=== PATIENT | female | born 1990 | race Caucasian/White ===

== ENCOUNTER 2023-04-22 12:59 | Outpatient (OUT) | payer BC, SELFPAY ==
--- NOTE | 2023-04-22 13:02 | US_ITS ---
The [address] [address] Patient Name: SHERITA TREVINO MRN: [id number] date: 1990 Sex: F Assigned Patient Location: [facility] Current Patient Location: [facility] Accession/Order Number: [id number] Exam Date: 04/22/2023 13:02 Report Date: 04/22/2023 16:57 At the request of: KODI FORTUNE Procedure: US pelvis w/ transvaginal EXAM: Myra ultrasound HISTORY: Pelvic pain. COMPARISON: None. TECHNIQUE: Transabdominal and transvaginal scanning was performed FINDINGS: The uterus is absent. Right ovary measures 2.8 x 2.1 x 2.9 cm. Color-flow is noted. Follicles are noted. There is 1.7 x 1.5 cm periovarian cyst noted.Left ovary measures 2.7 x 2.1 x 1.5 cm. Color-flow is noted. Follicles are noted. US/US pelvis w/ transvaginal IMPRESSION: 1. Absent uterus. 2. Normal right ovary. There is a 1.7 cm right paraovarian cyst. 3. Normal left ovary. Electronically authenticated by: NBA LEE Date: 04/22/2023 16:57
== END 2023-04-22 13:00 | disposition home or self-care (01) ==
LOC: NOMS 13:00
PROVIDERS: Visit Provider Obstetrics & Gynecology
DX: R10.2 Pelvic and perineal pain (principal); N83.291 Other ovarian cyst, right side
CPT/HCPCS: 76830; 76856

== ENCOUNTER 2023-05-07 20:39 | Outpatient (REF) | payer BC, SELFPAY ==
--- OUTSIDE RECORDS SUMMARY | 2023-05-07 20:45 | XMS_ITS | CCD ---
Author Name Unknown Address [address] [place] [address] Organization [facility] Care Team Providers Care Inspectors And Regulatory Officers Name Role Phone Sharri, Orestes F Unavailable Unavailable Sharri, Orestes F Unavailable Unavailable No, Physician Primary Care Provider Unavailabl e No, Physician Primary Care Provider Unavailabl e SHARRI, ORESTES F. S. Admitting Unavailabl e NO, PHYSICIAN Primary Care Unavailable NO, PHYSICIAN Primary Care Unavailable SHARRI, ORESTES F. S. Attending Unavailabl KIMMIE Hamlin Attending Unavailable NO, PHYSICIAN Primary Care Unavailable [place] SENIOR INTEGRATION DEVELOPER - NEGATIVE RESTORER, Katerina Gallego Primary Care Provider Charlie Cartagena Attending Unavailable Charlie Cartagena Admitting Unavailable NO FAMILY, PHYSICIAN Primary Care Unavailable Jocelin SENIOR INTEGRATION DEVELOPER - NEGATIVE RESTORER, Katerina Gallego Primary Care Provider KATERINA MONREAL Primary Care Unavailable BATSHEVA FRANCO Attending Unavailable KATERINA MONREAL Referring Unavailable JOCELIN, KATERINA M Primary Care Unavailable JOCELIN, KATERINA M Referring Unavailable JOCELIN, KATERINA M Primary Care Unavailable JOCELIN, KATERINA Gallego Referring Unavailable JOCELIN, KATERINA M Primary Care Unavailable JOCELIN, KATERINA M Referring Unavailable JOCELIN, KATERINA M Primary Care Unavailable JOCELIN, KATERINA M Referring Unavailable JOCELIN, KATERINA M Primary Care Unavailable JOCELIN, KATERINA M Referring Unavailable JOCELIN, KATEIRNA M Primary Care Unavailable KODI FORTUNE Attending Unavailable Allergies Allergy Classification Reported Allergen(s) Allergy Type Date of Onset Reaction(s) Facility (11 sources) Penicillins; Translations: [PENICILLINS] Propensity to adverse reactions to drug 01-19-2015 Rash [facility] Medications Current Medications Medication Drug Class(es) Dates Sig (Normalized) Sig (Original) acetaminophen 300 mg / codeine phosphate 30 mg oral tablet (1 source) Opioid Agonist Start: 10-10-2018 End: 10-13-2018 take 1 tablet by mouth every four hours as needed for pain acetaminophen-cod eine (TYLENOL-CODEINE #3) 300-30 mg per tablet Indications: Post-op pain Take 1 (one) tablet by mouth every 4 (four) hours as needed for pain . 18 tablet 0 10/10/2018 10/13/2018 Active acetaminophen 325 mg / oxyCODONE hydrochloride 5 mg oral tablet (3 sources) Opioid Agonist Start: 09-16-2019 End: 09-20-2019 take 1 tablet by mouth every four hours as needed oxyCODONE-acetami nophen (PERCOCET) 5-325 mg per tablet Indications: Post-op pain Take 1 (one) tablet by mouth every 4 (four) hours as needed . 20 tablet 0 09/16/2019 09/20/2019 Active Start: 09-16-2019 End: 09-16-2019 take 2 tablets by mouth every four hours as needed oxyCODONE-acetaminophen (PERCOCET) 5-325 mg per tablet 2 tablet cefdinir 300 mg oral capsule (1 source) Cephalosporin Antibacterial Start: 04-30-2022 End: 05-07-2022 take 1 capsule by mouth twice daily cefdinir (OMNICEF) 300 MG capsule Indications: Acute non-recurrent maxillary sinusitis Take 1 capsule by mouth 2 times daily for 7 days For maxillary sinusitis 14 capsule 0 04/30/2022 05/07/2022 Active 12 hr guaiFENesin 600 mg extended release oral tablet (1 source) Start: 07-28-2022 End: 08-12-2022 take 1 tablet by mouth twice daily as needed for congestion guaiFENesin (MUCINEX) 600 MG extended release tablet Take 1 tablet by mouth 2 times daily as needed for Congestion 10 tablet 0 07/28/2022 08/12/2022 Active ibuprofen 600 mg oral tablet (7 sources) Nonsteroidal Anti-inflammatory Drug Start: 07-28-2022 take 1 tablet by mouth every eight hours as needed for pain ibuprofen (ADVIL;MOTRIN) 600 MG tablet Take 1 tablet by mouth every 8 hours as needed for Pain 20 tablet 0 07/28/2022 Active Start: 09-16-2019 End: 10-16-2019 take 1 tablet by mouth every eight hours as needed ibuprofen (ADVIL,MOTRIN) 800 MG tablet Take 1 (one) tablet (800 mg total) by mouth every 8 (eight) hours as needed (pain) . 30 tablet 0 09/16/2019 10/16/2019 Active Start: 09-16-2019 End: 09-16-2019 take 1 tablet by mouth every eight hours as needed ibuprofen (ADVIL,MOTRIN) tablet 800 mg Start: 10-10-2018 End: 10-20-2018 take 1 tablet by mouth every eight hours as needed ibuprofen (ADVIL,MOTRIN) 800 MG tablet Take 1 (one) tablet (800 mg total) by mouth every 8 (eight) hours as needed for pain For 10 days. . 30 tablet 0 10/10/2018 10/20/2018 Active meclizine hydrochloride 25 mg oral tablet (5 sources) Antiemetic Start: 07-28-2022 take 1 tablet by mouth three times daily as needed for dizziness meclizine (ANTIVERT) 25 MG tablet Take 1 tablet by mouth 3 times daily as needed for Dizziness 15 tablet 0 07/28/2022 Active Start: 07-28-2022 End: 07-27-2022 meclizine (ANTIVERT) tablet 25 mg Completed/Discontinued Medications Medication Drug Class(es) Dates Sig (Normalized) Sig (Original) calcium chloride 0.0014 meq/ml / potassium chloride 0.004 meq/ml / sodium chloride 0.103 meq/ml / sodium lactate 0.028 meq/ml injectable solution (3 sources) Start: 09-15-2019 End: 09-16-2019 take 125 mL intravenous route every hour 125 mL/hr, Intravenous, Continuous, Starting Sat09/15/19 at 1230 Start: 09-15-2019 End: 09-15-2019 lactated Ringers infusion Start: 10-10-2018 End: 10-10-2018 lactated Ringers infusion Ethinyl Estradiol / norgestimate (2 sources) Progestin, Estrogen End: 09-15-2019 take 1 tablet by mouth once daily norgestimate-ethinyl estradiol (MONO-LINYAH) 0.25-35 mg-mcg per tablet Take 1 tablet by mouth daily . 0 09/15/2019 Discontinued (Patient's Request) take 1 tablet by mouth once ritika y norgestimate-ethinyl estradiol (MONO-LINYAH) 0.25-35 mg-mcg per tablet Take 1 tablet by mouth daily . 0 Active 20 ml fentaNYL 0.05 mg/ml injection (1 source) Opioid Agonist Start: 10-10-2018 End: 10-10-2018 25 mcg, Intravenous, Every 5 min PRN, Pain, Starting Sat10/10/18 at 0844, For 4 doses, PACU (only) [] Do not give more than 100 mcg while in PACU. 1 ml HYDROmorphone hydrochloride 1 mg/ml injection (2 sources) Opioid Agonist Start: 09-15-2019 End: 09-16-2019 take 1 mg intravenous route every six hours as needed HYDROmorphone (DILAUDID) injection 1 mg Start: 09-15-2019 End: 09-15-2019 0.5 mg, Intravenous, Every 5 min PRN, Pain, Starting Sat09/15/19 at 1024, For 6 doses, PACU (only) [] Give if fentanyl not effective or not ordered. [] Do not give more than 3 mg total. 4 ml labetalol hydrochloride 5 mg/ml cartridge (1 source) beta-Adrenergic Nikhil Start: 10-10-2018 End: 10-10-2018 5 mg, Intravenous, Every 5 min PRN, SBP greater than 160 or DBP greater than 90, Starting Sat10/10/18 at 0844, For 4 doses, PACU (only) [] Do not give more than 20 mg total. [] Hold for HR less than 50. 2 ml metoclopramide 5 mg/ml injection (1 source) Dopamine-2 Receptor Antagonist Start: 09-15-2019 End: 09-15-2019 metoclopramide (REGLAN) injection 10 mg Start: 09-15-2019 End: 09-15-2019 metoclopramide (REGLAN) inje ction 10 mg naloxone (NARCAN) injection 0.1 mg (2 sources) Start: 09-15-2019 End: 09-16-2019 naloxone (NARCAN) injection 0.1 mg Start: 10-10-2018 End: 10-10-2018 naloxone (NARCAN) injection 0.1 mg ondansetron (ZOFRAN-ODT) disintegrating tablet 4 mg (1 source) Start: 09-15-2019 End: 09-16-2019 take 1 tablet by mouth every six hours as needed ondansetron (ZOFRAN-ODT) disintegrating tablet 4 mg 50 ml sodium chloride 9 mg/ml injection (1 source) Start: 07-27-2022 End: 07-28-2022 0.9 % sodium chloride bolus Problems Active Problems Problem Classification Problem Date Documented Date Episodic/Chronic Abdominal pain (5 sources) Right flank pain; Translations: [Unspecified abdominal pain] Onset: 08-20-2022 Episodic Conditions associated with dizziness or vertigo (3 sources) Benign paroxysmal positional vertigo; Translations: [Benign paroxysmal vertigo, unspecified ear] Onset: 07-28-2022 Episodic Fluid and electrolyte disorders (1 source) Dehydration; Translations: [Dehydration] Episodic Genitourinary symptoms and ill-defined conditions (8 sources) Scalding pain on urination ; Translations: [Dysuria] Onset: 08-20-2022 Episodic Headache; including migraine (1 source) Headache; including migraine; Translations: [Headache, unspecified] Onset: 05-01-2022 Nutritional deficiencies (8 sources) Vitamin D deficiency; Translations: [Vitamin D deficiency, unspecified] Onset: 05-01-2022 Chronic Other lower respiratory disease (1 source) Pleuritic pain; Translations: [Pleurodynia] Episodic Other nervous system disorders (2 sources) Postoperative pain ; Translations: [Post-op pain] Episodic Other nutritional; endocrine; and metabolic disorders (6 sources) Drug-induced obesity; 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 obesity] Onset: 05-01-2022 05-01-2022 Chronic Residual codes; unclassified (2 sources) Family history of renal stone; Translations: [Family history of disorders of kidney and ureter] Episodic Residual codes; unclassified (3 sources) Family history of disorders of kidney and ureter; Translations: [Family history of disorders of kidney and ureter] Onset: 08-20-2022 Episodic Unclassified (1 source) Disorder of the skin and subcutaneous tissue, unspecified; Translations: [Disorder of the skin and subcutaneous tissue, unspecified] Onset: 04-06-2022 Past or Other Problems Problem Classification Problem Date Documented Da te Episodic/Chronic Headache; including migraine (7 sources) Frontal headache ; Translations: [Frontal headache] Onset: 05-01-2022 Episodic Other screening for suspected conditions (not mental disorders or infectious disease) (8 sources) Patient encounter status; Translations: [Encounter for screening for diseases of the blood and blood-forming organs and certain disorders involving the immune mechanism] Onset: 05-01-2022 Episodic Other upper respiratory infections (8 sources) Acute maxillary sinusitis; Translations: [Acute maxillary sinusitis, unspecified] Onset: 05-01-2022 Episodic Results Test Name Value Interpretation Reference Range Facility CT ABDOMEN PELVIS WO CONTRAS Ton 09-03-2022 CT ABDOMEN PELVIS WO CONTRAST EXAMINATION: CT ABDOMEN PELVIS WO CONTRAST, 09/03/2022 9:49 AM EDT HISTORY: 32-year-old female with microscopic hematuria. Partial hysterectomy. COMPARISON: KUB 08/20/2022 TECHNIQUE: CT scan of the abdomen and pelvis was performed without IV contrast. CT dose reduction technique was used, including Automated Exposure Control. FINDINGS: POSITIVES related to history: None. NEGATIVES related to history: No urinary tract stones or masses. COINCIDENTAL, unrelated to history: Hysterectomy. ROUTINE: Bladder contour normal. No unexpected mass. Bowel normal. Normal appendix. Normal adrenal glands, pancreas, spleen, gallbladder, liver, lung bases and bone windows IMPRESSION: Negative noncontrast CT. Interpreted by: Pawan Weinstein Jr., MD Signed by: Pawan Weinstein Jr., MD 09/03/22 Final result Normal [facility] Cult,Urineon 08-21-2022 Cult,Urine Specimen Description .CLEAN CATCH URINE Culture NO GROWTH Report Status FINAL 08/21/2022 Normal [facility] Comment on above: Performed By: #### U #### [facility] [employer] [facility] [place] [address] Junior Programmer: Wang Peralta MD [facility] [address] [place] [address] Junior Programmer: Dustin Chang MD XR ABDOMEN (KUB) (SINGLE AP VIEW)on 08-20-2022 XR ABDOMEN (KUB) (SINGLE AP VIEW) EXAM: XR ABDOMEN (KUB) (SINGLE AP VIEW) HISTORY: 1 week of right sided discomfort. Hematuria and right flank pain on exam, no fever, suspect kidney stone. Burning with urination R30.0. Dysuria R30.0. Family history of kidney stone Z84.1. Acute right flank pain R10.9. COMPARISON: None. TECHNIQUE: Supine AP view of the abdomen with 2 images. FINDINGS: There is prominent fecal material throughout the colon. No obstructive pattern or major ileus seen. Psoas margins appear intact. No urinary tract calcifications are seen. Osseous structures appear intact. IMPRESSION: Nonobstructive gas pattern. Prominent colonic fecal material is present. No urinary tract calcifications are seen. Interpreted by: Gene Mlaave DO Signed by: Gene Malave DO 08/20/22 Final result Normal [facility] Nonobstructive gas pattern. Prominent colonic fecal material is present. No urinary tract calcifications are seen. [facility] EXAM: XR ABDOMEN (KU B) (SINGLE AP VIEW) HISTORY: 1 week of right sided discomfort. Hematuria and right flank pain on exam, no fever, suspect kidney stone. Burning with urination R30.0. Dysuria R30.0. Family history of kidney stone Z84.1. Acute right flank pain R10.9. COMPARISON: None. TECHNIQUE: Supine AP view of the abdomen with 2 images. FINDINGS: There is prominent fecal material throughout the colon. No obstructive pattern or major ileus seen. Psoas margins appear intact. No urinary tract calcifications are seen. Osseous structures appear intact. [facility] Gene Malave DO - 08/20/2022 EXAM: XR ABDOMEN (KUB) (SINGLE AP VIEW) HISTORY: 1 week of right sided discomfort. Hematuria and right flank pain on exam, no fever, suspect kidney stone. Burning with urination R30.0. Dysuria R30.0. Family history of kidney stone Z84.1. Acute right flank pain R10.9. COMPARISON: None. TECHNIQUE: Supine AP view of the abdomen with 2 images. FINDINGS: There is prominent fecal material throughout the colon. No obstructive pattern or major ileus seen. Psoas margins appear intact. No urinary tract calcifications are seen. Osseous structures appear intact. IMPRESSION: Nonobstructive gas pattern. Prominent colonic fecal material is present. No urinary tract calcifications are seen. [employer] Phone: Radiology Study observation (narrative) [employer] Phone: XR ABDOMEN (KUB) (SINGLE AP VIEW)Ordered By: Gene Malave on 08-20-2022 [employer] Phone: CBC with Diffon 07-28-2022 Abs. Basophil 0.00 k/uL Normal 0.0-0.2 [facility] Comment on above: Performed By: #### C P, CDP ####[facility] [id number] [place] [address] Lab Director: Dustin Chang MD Abs.Neutrophil (Seg) 5.60 k/uL Normal 2.5-7.0 [facility] Comment on above: Performed By: #### C P, CDP ####[facility] [id number] [place] [address] Lab Director: Dustin Chang MD Auto Diff Performed YES Normal [facility] Comment on above: Performed By: #### C P, CDP ####[facility] [id number] [facility] [place] [address] Lab Director: Dustin Chang MD Basophils/100 WBC (Bld) 0 % Normal 0-2 [facility] Comment on above: Performed By: #### C P, CDP ####[facility] [id number] [facility] [place] [address] Lab Director: Dustin Chang MD Eosinophils (Bld) [#/Vol] 0.30 10*3/uL Normal 0.0-0.4 [facility] Comment on above: Performed By: #### C P, CDP ####[facility] [id number] [place] [address] Lab Director: Dustin Chang MD Eosinophils/100 WBC (Bld) 3 % Normal 0-5 [facility] Comment on above: Performed By: #### C P, CDP ####[facility] [id number] [place] [address] Lab Director: Dustin Chang MD Erythrocyte distribution width (RBC) [Ratio] 12.3 % Normal 12.1-15.2 [facility] Comment on above: Performed By: #### C P, CDP ####[facility] [id number] [place] [address] Lab Director: Dustin Chang MD Hematocrit (Bld) [Volume fraction] 37.2 % Normal 36-46 [facility] Comment on above: Performed By: #### C P, CDP ####[facility] [id number] [place] [address] Lab Director: Dustin Chang MD Hemoglobin (Bld) [Mass/Vol] 12.7 g/dL Normal 12.0-16.0 [facility] Comment on above: Performed By: #### C P, CDP ####[facility] [id number] [place] [address] Lab Director: Dustin Chang MD Lymphocytes (Bld) [#/Vol] 2.40 10*3/uL Normal 1.0-4.8 [facility] Comment on above: Performed By: #### C P, CDP ####[facility] [id number] [place] [address] Lab Director: Dustin Chang MD Lymphocytes/100 WBC (Bld) 27 % Normal 15-40 [facility] Comment on above: Performed By: #### C P, CDP ####[facility] [id number] [place], [place] [phone] Director: Dustin Chang MD MCH (RBC) [Entitic mass] 29.3 pg Normal 26-34 [facility] Comment on above: Performed By: #### C P, CDP ####[facility] [id number] [place], [place] [id number] Lab Director: Dustin Chang MD MCHC (RBC) [Mass/Vol] 34.3 g/dL Normal 31-37 [facility] Comment on above: Performed By: #### C P, CDP ####[facility] [id number] [place], [place] [phone] Director: Dustin Chang MD MCV (RBC) [Entitic vol] 85.6 fL Normal 80-100 [facility] Comment on above: Performed By: #### C P, CDP ####[facility] [id number] [place] [phone] Director: Dustin Chang MD Monocytes (Bld) [#/Vol] 0.60 10*3/uL Normal 0.0-1.0 [facility] Comment on above: Performed By: #### C P, CDP ####[facility] [id number] [place] [address] Lab Director: Dustin Chang MD Monocytes/100 WBC (Bld) 7 % Normal 4-8 [facility] Comment on above: Performed By: #### C P, CDP ####[facility] [id number] [place] [address] Lab Director: Dustin Chang MD Neutrophil (Seg) 63 % Normal 47-75 [facility] Comment on above: Performed By: #### C P, CDP ####[facility] [id number] [place] [address] Lab Director: Dustin Chang MD Platelets (Bld) [#/Vol] 307 10*3/uL Normal 140-450 [facility] Comment on above: Performed By: #### C P, CDP ####[facility] [id number] [place] [address] Lab Director: Dustin Chang MD RBC (Bld) [#/Vol] 4.35 10*6/uL Normal 4.0-5.2 [facility] Comment on above: Performed By: #### C P, CDP ####[facility] [id number] [place], [place] [phone] Director: Dustin Chang MD WBC (Bld) [#/Vol] 8.9 10*3/uL Normal 3.5-11.0 [facility] Comment on above: Performed By: #### C P, CDP ####[facility] [address] [place], [place] [phone] Director: Dustin Chang MD Comp Metabolic Profon 2022 Albumin [Mass/Vol] 3.9 g/dL Normal 3.5-5.2 [facility] Comment on above: Performed By: #### C P, CDP ####[facility] [id number] [place] [phone] Director: Dustin Chang MD Alkaline Phos 91 U/L Normal 35-104 [facility] Comment on above: Performed By: #### C P, CDP ####[facility] [id number] [place], [place] [phone] Director: Dustin Chang MD ALT [Catalytic activity/Vol] 10 U/L Normal 5-33 [facility] Comment on above: Performed By: #### C P, CDP ####[facility] [id number] [place], [place] [phone] Director: Dustin Chang MD Anion gap [Moles/Vol] 10 mmol/L Normal 9-17 [facility] Comment on above: Performed By: #### C P, CDP ####[facility] [id number] [place], [place] [phone] Director: Dustin Chang MD AST [Catalytic activity/Vol] 12 U/L Normal <32 [facility] Comment on above: Performed By: #### C P, CDP ####[facility] [id number] [place], [place] [phone] Director: Dustin Chang MD Bilirubin [Mass/Vol] 0.2 mg/dL Low 0.3-1.2 [facility] Comment on above: Performed By: #### C P, CDP ####[facility] [id number] [place] [address] Lab Director: Dustin Chang MD BUN/CRE Ratio 25 High 9-20 [facility] Comment on above: Performed By: #### C P, CDP ####[facility] [id number] [place] [address] Lab Director: Dustin Chang MD Calcium [Mass/Vol] 9.2 mg/dL Normal 8.6-10.4 [facility] Comment on above: Performed By: #### C P, CDP ####[facility] [address] [place] [address] Lab Director: Dustin Chang MD Chloride [Moles/Vol] 105 mmol/L Normal 98-107 [facility] Comment on above: Performed By: #### C P, CDP ####[facility] [address] [facility] [place] [address] Lab Director: Dustin Chang MD CO2 [Moles/Vol] 23 mmol/L Normal 20-31 [facility] Comment on above: Performed By: #### C P, CDP ####[facility] [id number] [facility] [place] [address] Lab Director: Dustin Chang MD Creatinine [Mass/Vol] 0.61 mg/dL Normal 0.50-0.90 [facility] Comment on above: Performed By: #### C P, CDP ####[facility] [address] [place] [address] Lab Director: Dustin Chang MD GFR/1.73 sq M.predicted among non-blacks MDRD (S/P/Bld) [Vol rate/Area] mL/min/{1.73_m2} Normal >60 [facility] Comment on above: Result Comment: These results are not intended for use in patients <18 years of age. eGFR results are calculated without a race factor using the 2020 CKD-EPI equation. Careful clinical correlation is recommended, particularly when comparing to results calculated using previous equations. The CKD-EPI equation is less accurate in patients with extremes of muscle mass, extra-renal metabolism of creatine, excessive creatine ingestion, or following therapy that affects renal tubular secretion. Performed By: #### C P, CDP ####[facility] [address] [facility] [place] [address] Lab Director: Dustin Chang MD Glucose [Mass/Vol] 106 mg/dL High 70-99 [facility] Comment on above: Performed By: #### C P, CDP ####[facility] [address] [place] [address] Lab Director: Dustin Chang MD Potassium [Moles/Vol] 3.7 mmol/L Normal 3.7-5.3 [facility] Comment on above: Performed By: #### C P, CDP ####[facility] [address] [facility] [place] [address] Lab Director: Dustin Chang MD Protein [Mass/Vol] 6.4 g/dL Normal 6.4-8.3 [facility] Comment on above: Performed By: #### C P, CDP ####[facility] [id number] [facility] [place] [address] Lab Director: Dustin Chang MD Sodium [Moles/Vol] 138 mmol/L Normal 135-144 [facility] Comment on above: Performed By: #### C P, CDP ####[facility] [address] [place] [address] Lab Director: Dustin Chang MD Urea nitrogen [Mass/Vol] 15 mg/dL Normal 6-20 [facility] Comment on above: Performed By: #### C P, CDP ####[facility] [id number] [place] [address] lab Director: Dustin Chang MD XR CHEST PORTABLEon 07-29-19 XR CHEST PORTABLE EXAMINATION: XR CHES T PORTABLE, , 07/27/2022 11:40 PM EDT INDICATION: Reason for exam:->CP HISTORY: Ordering Provider Reason for Exam: Technologist Note: Additional: COMPARISON: Chest x-ray dated 01/19/2015. TECHNIQUE: Chest x-ray: One view. FINDINGS: No pneumothorax, pleural effusion or focal airspace consolidation. Heart is normal in size. Bony thorax is unremarkable. IMPRESSION: No acute cardiopulmonary process. Interpreted by: Flori Penny MD Signed by: Flori Penny MD 07/28/22 Final result Normal [facility] CBC with Auto Differentialon 07-27-2022 [facility] Absolute Lymph # 2.40 [facility] Absolute Letcher # 0.60 [facility] RS [facility] Basophils (Bld) [#/Vol] 0.00 10*3/uL [facility] Basophils/100 WBC (Bld) 0 % 0 - 2 % [facility] Differential Type YES [facility] Eosinophils/100 WBC (Bld) 3 % 0 - 5 % [facility] Hematocrit (Bld) [Volume fraction] 37.2 % 36 - 46 % [facility] Hemoglobin (Bld) [Mass/Vol] 12.7 g/dL 12.0 - 16.0 g/dL [facility] Lymphocytes/100 WBC (Bld) 27 % 15 - 40 % [facility] MCH (RBC) [Entitic mass] 29.3 pg 26 - 34 pg [facility] MCHC (RBC) [Mass/Vol] 34.3 g/dL 31 - 37 g/dL [facility] MCV (RBC) [Entitic vol] 85.6 fL 80 - 100 fL [facility] Monocytes/100 WBC (Bld) 7 % 4 - 8 % [facility] Platelet distribution width (Bld) [Ratio] 12.3 % 12.1 - 15.2 % [facility] Platelets (Bld) [#/Vol] 307 10*3/uL [facility] RBC (Bld) [#/Vol] 4.35 10*6/uL 4.0 - 5.2 m/uL [facility] Segmented neutrophils/100 WBC (Bld) 63 % 47 - 75 % [facility] Segs Absolute 5.60 [facility] WBC (Bld) [#/Vol] 8.9 10*3/uL [facility] CMPon 07-27-2022 Albumin [Mass/Vol] 3.9 g/dL 3.5 - 5.2 g/dL [facility] ALP [Catalytic activity/Vol] 91 U/L 35 - 104 U/L [facility] ALT [Catalytic activity/Vol] 10 U/L 5 - 33 U/L [facility] Anion gap [Moles/Vol] 10 mmol/L 9 - 17 mmol/L [facility] AST [Catalytic activity/Vol] 12 U/L NINF - 32 U/L [facility] Bilirubin [Mass/Vol] 0.2 mg/dL Low 0.3 - 1.2 mg/dL [facility] Calcium [Mass/Vol] 9.2 mg/dL 8.6 - 10. 4 mg/dL [facility] Chloride [Moles/Vol] 105 mmol/L 98 - 107 mmol/L [facility] CO2 [Moles/Vol] 23 mmol/L 20 - 31 mmol/L [facility] Creatinine [Mass/Vol] 0.61 mg/dL 0.50 - 0.90 mg/dL [facility] GFR/1.73 sq M.predicted MDRD (S/P/Bld) [Vol rate/Area] - PINF [facility] Comment on above: These results are not intended for use in patients <18 years of age. eGFR results are calculated without a race factor using the 2020 CKD-EPI equation. Careful clinical correlation is recommended, particularly when comparing to results calculated using previous equations. The CKD-EPI equation is less accurate in patients with extremes of muscle mass, extra-renal metabolism of creatine, excessive creatine ingestion, or following therapy that affects renal tubular secretion. Glucose [Mass/Vol] 106 mg/dL High 70 - 99 mg/dL [facility] Interpretation and review of laboratory results Abnormal [facility] Potassium [Moles/Vol] 3.7 mmol/L 3.7 - 5.3 mmol/L [facility] Protein [Mass/Vol] 6.4 g/dL 6.4 - 8.3 g/dL [facility] Sodium [Moles/Vol] 138 mmol/L 135 - 144 mmol/L [facility] Urea nitrogen [Mass/Vol] 15 mg/dL 6 - 20 mg/dL [facility] Urea nitrogen/Creatinine (Bld) [Mass ratio] 25 High 9 - 20 [facility] Cytologyon 06-04-2022 Cytology (NOTE) INTERPRETATION Cervical material, (ThinPrep vial, Imaging-assisted review): Specimen Adequacy: Satisfactory for evaluation. Descriptive Diagnosis: Negative for intraepithelial lesion or malignancy. Asbestos Abatement Technician: LUIS MAYES(ASCP) Electronically Signed Out ey/06/12/2022 Source: A: Cervical material, (ThinPrep vial, Imaging-assisted review) Clinical History Hysterectomy Z01.419 Routine senior investment analyst exam without abnormal findings LMP: 12/19/2014 GYNECOLOGIC CYTOLOGY REPORT Patient Name: SHERITA TREVINO [facility] Rec: [id number] Path Number: [id number] [facility] CONSULTING PATHOLOGISTS [facility] ANATOMIC PATHOLOGY [address] [place] [phone] Normal [facility] Comment on above: Performed By: #### P PPVP #### [facility] [employer] [address] [place] [address] Junior Programmer: Wang Peralta MD C-Reactive Proteinon 023 CRP [Mass/Vol] 7.6 mg/L High 0.0-5.0 [facility] Comment on above: Performed By: #### C DP, CRP, TSHX, CP, SED, ZFAST #### [facility] [address] [place] [address] Junior Programmer: Dustin Chang MD #### LIPR, VD25 #### [facility] [address] [place] [address] Junior Programmer: Wang Peralta MD CRP High sensitivity method [Mass/Vol] 7.6 mg/L High 0.0 - 5.0 mg/L [facility] Interpretation and review of laboratory results Abnormal [facility] CBC with Auto Differentialon 05-01-2022 Absolute Eos # 0.10 [facility] Absolute Lymph # 1.80 [facility] Absolute Letcher # 0.40 [facility] Basophils (Bld) [#/Vol] 0.00 10*3/uL [facility] Basophils/100 WBC (Bld) 0 % 0 - 2 % [facility] Differential Type YES [facility] Eosinophils/100 WBC (Bld) 1 % 0 - 5 % [facility] Hematocrit (Bld) [Volume fraction] 40.2 % 36 - 46 % [facility] Hemoglobin (Bld) [Mass/Vol] 13.3 g/dL 12.0 - 16.0 g/dL [facility] Lymphocytes/100 WBC (Bld) 22 % 15 - 40 % [facility] MCH (RBC) [Entitic mass] 28.5 pg 26 - 34 pg [facility] MCHC (RBC) [Mass/Vol] 33.1 g/dL 31 - 37 g/dL [facility] MCV (RBC) [Entitic vol] 86.2 fL 80 - 100 fL [facility] Monocytes/100 WBC (Bld) 5 % 4 - 8 % [facility] Platelet distribution width (Bld) [Ratio] 13.3 % 12.1 - 15.2 % [facility] Platelets (Bld) [#/Vol] 266 10*3/uL [facility] RBC (Bld) [#/Vol] 4.66 10*6/uL 4.0 - 5.2 m/uL [facility] Segmented neutrophils/100 WBC (Bld) 72 % 47 - 75 % [facility] Segs Absolute 5.90 [facility] WBC (Bld) [#/Vol] 8.3 10*3/uL [facility] CBC with Diffon 05-01-2022 Abs. Basophil 0.00 k/uL Normal 0.0-0.2 [facility] Comment on above: Performed By: #### C DP, CRP, TSHX, CP, SED, ZFAST #### [facility] [address] [place] [address] Junior Programmer: Dustin Chang MD #### SHAHID25 #### [place] [phone] Junior Programmer: Wang Peralta MD Abs.Neutrophil (Seg) 5.90 k/uL Normal 2.5-7.0 [facility] Comment on above: Performed By: #### C DP, CRP, TSHX, CP, SED, ZFAST #### [facility] [address] [place] [address] Junior Programmer: Dustin Chang MD #### SHAHID25 #### [place] [address] Junior Programmer: Wang Peralta MD Auto Diff Performed YES Normal [facility] Comment on above: Performed By: #### C DP, CRP, TSHX, CP, SED, ZFAST #### [facility] [address] [place] [phone] Junior Programmer: Dustin Chang MD #### VAISHNAVI VD25 #### [place] [address] Junior Programmer: Wang Peralta MD Basophils/100 WBC (Bld) 0 % Normal 0-2 [facility] Comment on above: Performed By: #### C DP, CRP, TSHX, CP, SED, ZFAST #### [facility] [address] [place] [address] Junior Programmer: Dustin Chang MD #### LIPR, VD25 #### [address] [phone] Junior Programmer: Wang Peralta MD Eosinophils (Bld) [#/Vol] 0.10 10*3/uL Normal 0.0-0.4 [facility] Comment on above: Performed By: #### C DP, CRP, TSHX, CP, SED, ZFAST #### [facility] [address] [place] [address] Junior Programmer: Dustin Chang MD #### LIPMaryjane, VD25 #### [address] [phone] Junior Programmer: Wang Peralta MD Eosinophils/100 WBC (Bld) 1 % Normal 0-5 [facility] Comment on above: Performed By: #### C DP, CRP, TSHX, CP, SED, ZFAST #### [facility] [address] [place] [address] Junior Programmer: Dustin Chang MD #### LIPR, VD25 #### [address] [phone] Junior Programmer: Wang Peralta MD Erythrocyte distribution width (RBC) [Ratio] 13.3 % Normal 12.1-15.2 [facility] Comment on above: Performed By: #### C DP, CRP, TSHX, CP, SED, ZFAST #### [facility] [address] [place] [address] Junior Programmer: Dustin Chang MD #### LIPR, VD25 #### [address] [phone] Junior Programmer: Wang Peralta MD Hematocrit (Bld) [Volume fraction] 40.2 % Normal 36-46 [facility] Comment on above: Performed By: #### C DP, CRP, TSHX, CP, SED, ZFAST #### [facility] [address] [place] [address] Junior Programmer: Dustin Chang MD #### LIPR, VD25 #### [address] [address] Junior Programmer: Wang Peralta MD Hemoglobin (Bld) [Mass/Vol] 13.3 g/dL Normal 12.0-16.0 [facility] Comment on above: Performed By: #### C DP, CRP, TSHX, CP, SED, ZFAST #### [facility] [address] [place], [place] [id number] Junior Programmer: Dustin Chang MD #### VAISHNAVI, VD25 #### [address] [address] Junior Programmer: Wang Peralta MD Lymphocytes (Bld) [#/Vol] 1.80 10*3/uL Normal 1.0-4.8 [facility] Comment on above: Performed By: #### C DP, CRP, TSHX, CP, SED, ZFAST #### [facility] [address] [place] [address] Junior Programmer: Dustin Chang MD #### VAISHNAVI VD25 #### [address] [address] Junior Programmer: Wang Peralta MD Lymphocytes/100 WBC (Bld) 22 % Normal 15-40 [facility] Comment on above: Performed By: #### C DP, CRP, TSHX, CP, SED, ZFAST #### [facility] [address] [place] [address] Junior Programmer: Dustin Chang MD #### LIPR, VD25 #### [address] [phone] Junior Programmer: Wang Peralta MD MCH (RBC) [Entitic mass] 28.5 pg Normal 26-34 [facility] Comment on above: Performed By: #### C DP, CRP, TSHX, CP, SED, ZFAST #### [facility] [address] [place], [place] [id number] Junior Programmer: Dustin Chang MD #### VAISHNAVI VD25 #### [address] [phone] Junior Programmer: Wang Peralta MD MCHC (RBC) [Mass/Vol] 33.1 g/dL Normal 31-37 [facility] Comment on above: Performed By: #### C DP, CRP, TSHX, CP, SED, ZFAST #### [facility] [address] [place], [place] [phone] Junior Programmer: Dustin Chang MD #### VAISHNAVI VD25 #### [address] [phone] Junior Programmer: Wang Peralta MD MCV (RBC) [Entitic vol] 86.2 fL Normal 80-100 [facility] Comment on above: Performed By: #### C DP, CRP, TSHX, CP, SED, ZFAST #### [facility] [address] [place], [place] [id number] Junior Programmer: Dustin Chang MD #### LIPMaryjane, VD25 #### [address] [phone] Junior Programmer: Wang Peralta MD Monocytes (Bld) [#/Vol] 0.40 10*3/uL Normal 0.0-1.0 [facility] Comment on above: Performed By: #### C DP, CRP, TSHX, CP, SED, ZFAST #### [facility] [address] [place], [place] [phone] Junior Programmer: Dustin Chang MD #### LIPR, VD25 #### [place] [id number] [place], [place] [phone] Junior Programmer: Wang Peralta MD Monocytes/100 WBC (Bld) 5 % Normal 4-8 [facility] Comment on above: Performed By: #### C DP, CRP, TSHX, CP, SED, ZFAST #### [facility] [address] [place] [phone] ( Junior Programmer: Dusitn Chang MD #### LIPR, VD25 #### [address] [phone] Junior Programmer: Wang Peralta MD Neutrophil (Seg) 72 % Normal 47-75 [facility] Comment on above: Performed By: #### C DP, CRP, TSHX, CP, SED, ZFAST #### [facility] [address] [place] [phone] ( Junior Programmer: Dustin Chang MD #### LIPR, VD25 #### [address] [phone] Junior Programmer: Wang Peralta MD Platelets (Bld) [#/Vol] 266 10*3/uL Normal 140-450 [facility] Comment on above: Performed By: #### C DP, CRP, TSHX, CP, SED, ZFAST #### [facility] [address] [place] [phone] Junior Programmer: Dustin Chang MD #### LIPR, VD25 #### [place] [phone] Junior Programmer: Wang Peralta MD RBC (Bld) [#/Vol] 4.66 10*6/uL Normal 4.0-5.2 [facility] Comment on above: Performed By: #### C DP, CRP, TSHX, CP, SED, ZFAST #### [facility] [address] [place], [place] [phone] Junior Programmer: Dustin Chang MD #### LIPMaryjane, VD25 #### [address] [phone] Junior Programmer: Wang Peralta MD WBC (Bld) [#/Vol] 8.3 10*3/uL Normal 3.5-11.0 [facility] Comment on above: Performed By: #### C DP, CRP, TSHX, CP, SED, ZFAST #### [facility] [address] [place], [place] [phone] Junior Programmer: Dustin Chang MD #### VAISHNAVI, VD25 #### [address] [address] Junior Programmer: Wang Peralta MD Comp Metabolic Profon 2022 Albumin [Mass/Vol] 4.4 g/dL Normal 3.5-5.2 [facility] Comment on above: Performed By: #### C DP, CRP, TSHX, CP, SED, ZFAST #### [facility] [address] [place] [address] Junior Programmer: Dustin Chang MD #### VAISHNAVI, VD25 #### [address] [address] Junior Programmer: Wang Peralta MD Alkaline Phos 83 U/L Normal 35-104 [facility] Comment on above: Performed By: #### C DP, CRP, TSHX, CP, SED, ZFAST #### [facility] [address] [place] [address] Junior Programmer: Dustin Chang MD #### LIPR, VD25 #### [address] [address] Junior Programmer: Wang Peralta MD ALT [Catalytic activity/Vol] 9 U/L Normal 5-33 [facility] Comment on above: Performed By: #### C DP, CRP, TSHX, CP, SED, ZFAST #### [facility] [address] [place], [place] [phone] Junior Programmer: Dustin Chang MD #### LIPR, VD25 #### [address] [phone] Junior Programmer: Wang Peralta MD Anion gap [Moles/Vol] 10 mmol/L Normal 9-17 [facility] Comment on above: Performed By: #### C DP, CRP, TSHX, CP, SED, ZFAST #### [facility] [address] [place], [place] [phone] Junior Programmer: Dustin Chang MD #### LIPR, VD25 #### [address] [address] Junior Programmer: Wang Peralta MD AST [Catalytic activity/Vol] 10 U/L Normal <32 [facility] Comment on above: Performed By: #### C DP, CRP, TSHX, CP, SED, ZFAST #### [facility] [address] [place], [place] [phone] Junior Programmer: Dustin Chang MD #### LIPR, VD25 #### [address] [address] Junior Programmer: Wang Peralta MD Bilirubin [Mass/Vol] 0.5 mg/dL Normal 0.3-1.2 [facility] Comment on above: Performed By: #### C DP, CRP, TSHX, CP, SED, ZFAST #### [facility] [address] [place], [place] [phone] Junior Programmer: Dustin Chang MD #### LIPR, VD25 #### [address] [phone] Junior Programmer: Wang Peralta MD BUN/CRE Ratio 20 Normal 9-20 [facility] Comment on above: Performed By: #### C DP, CRP, TSHX, CP, SED, ZFAST #### [facility] [address] [place] [address] Junior Programmer: Dustin Chang MD #### VAISNHAVI, VD25 #### [address] [phone] Junior Programmer: Wang Peralta MD Calcium [Mass/Vol] 9.4 mg/dL Normal 8.6-10.4 [facility] Comment on above: Performed By: #### C DP, CRP, TSHX, CP, SED, ZFAST #### [facility] [address] [place], [place] [phone] Junior Programmer: Dustin Chang MD #### VAISHNAVI VD25 #### [address] [address] Junior Programmer: Wang Peralta MD Chloride [Moles/Vol] 104 mmol/L Normal 98-107 [facility] Comment on above: Performed By: #### C DP, CRP, TSHX, CP, SED, ZFAST #### [facility] [address] [place], [place] [id number] Junior Programmer: Dustin Chang MD #### VAISHNAVI VD25 #### [address] [address] Junior Programmer: Wang Peralta MD CO2 [Moles/Vol] 25 mmol/L Normal 20-31 [facility] Comment on above: Performed By: #### C DP, CRP, TSHX, CP, SED, ZFAST #### [facility] [address] [place], [place] [phone] Junior Programmer: Dustin Chang MD #### VAISHNAVI VD25 #### [address], [place] [phone] Junior Programmer: Wang Peralta MD Creatinine [Mass/Vol] 0.70 mg/dL Normal 0.50-0.90 [facility] Comment on above: Performed By: #### C DP, CRP, TSHX, CP, SED, ZFAST #### [facility] [address] [place], [place] [phone] Junior Programmer: Dustin Chang MD #### VAISHNAVI VD25 #### [place] [id number] [place], [place] [phone] Junior Programmer: Wang Peralta MD GFR/1.73 sq M.predicted among non-blacks MDRD (S/P/Bld) [Vol rate/Area] mL/min/{1.73_m2} Normal >60 [facility] Comment on above: Result Comment: These results are not intended for use in patients <18 years of age. eGFR results are calculated without a race factor using the 2020 CKD-EPI equation. Careful clinical correlation is recommended, particularly when comparing to results calculated using previous equations. The CKD-EPI equation is less accurate in patients with extremes of muscle mass, extra-renal metabolism of creatine, excessive creatine ingestion, or following therapy that affects renal tubular secretion. Performed By: #### C DP, CRP, TSHX, CP, SED, ZFAST #### [facility] [address] [place], [place] [phone] Junior Programmer: Dustin Chang MD #### VAISHNAVI VD25 #### [facility] [employer] [address] [place], [place] [phone] Junior Programmer: Wang Peralta MD Glucose [Mass/Vol] 92 mg/dL Normal 70-99 [facility] Comment on above: Performed By: #### C DP, CRP, TSHX, CP, SED, ZFAST #### [facility] [address] [place], [place] [phone] Junior Programmer: Dustin Chang MD #### SHAHID25 #### [address] [phone] Junior Programmer: Wang Peralta MD Potassium [Moles/Vol] 4.3 mmol/L Normal 3.7-5.3 [facility] Comment on above: Performed By: #### C DP, CRP, TSHX, CP, SED, ZFAST #### [facility] [address] [place], [place] [phone] Junior Programmer: Dustin Chang MD #### LIPR, VD25 #### [address] [phone] Junior Programmer: Wang Peralta MD Protein [Mass/Vol] 6.8 g/dL Normal 6.4-8.3 [facility] Comment on above: Performed By: #### C DP, CRP, TSHX, CP, SED, ZFAST #### [facility] [address] [place], [place] [phone] Junior Programmer: Dustin Chang MD #### VAISHNAVI VD25 #### [address] [phone] Junior Programmer: Wang Peralta MD Sodium [Moles/Vol] 139 mmol/L Normal 135-144 [facility] Comment on above: Performed By: #### C DP, CRP, TSHX, CP, SED, ZFAST #### [facility] [address] [place], [place] [phone] Junior Programmer: Dustin Chang MD #### LIPR, VD25 #### [address] [phone] Junior Programmer: Wang Peralta MD Urea nitrogen [Mass/Vol] 14 mg/dL Normal 6-20 [facility] Comment on above: Performed By: #### C DP, CRP, TSHX, CP, SED, ZFAST #### [facility] [address] [place] [address] Junior Programmer: Dustin Chang MD #### LIPR, VD25 #### [facility] [address] [place] [phone] Junior Programmer: Wang Peralta MD Comprehensive Metabolic Pane [facility] 05-01-2022 Albumin [Mass/Vol] 4.4 g/dL 3.5 - 5.2 g/dL [facility] ALP [Catalytic activity/Vol] 83 U/L 35 - 104 U/L [facility] ALT [Catalytic activity/Vol] 9 U/L 5 - 33 U/L [facility] Anion gap [Moles/Vol] 10 mmol/L 9 - 17 mmol/L [facility] AST [Catalytic activity/Vol] 10 U/L NINF - 32 U/L [facility] Bilirubin [Mass/Vol] 0.5 mg/dL 0.3 - 1.2 mg/dL [facility] Calcium [Mass/Vol] 9.4 mg/dL 8.6 - 10. 4 mg/dL [facility] Chloride [Moles/Vol] 104 mmol/L 98 - 107 mmol/L [facility] CO2 [Moles/Vol] 25 mmol/L 20 - 31 mmol/L [facility] Creatinine [Mass/Vol] 0.7 mg/dL 0.50 - 0.90 mg/dL [facility] GFR/1.73 sq M.predicted MDRD (S/P/Bld) [Vol rate/Area] - PINF [facility] Comment on above: These results are not intended for use in patients <18 years of age. eGFR results are calculated without a race factor using the 2020 CKD-EPI equation. Careful clinical correlation is recommended, particularly when comparing to results calculated using previous equations. The CKD-EPI equation is less accurate in patients with extremes of muscle mass, extra-renal metabolism of creatine, excessive creatine ingestion, or following therapy that affects renal tubular secretion. Glucose [Mass/Vol] 92 mg/dL 70 - 99 mg/dL [facility] Potassium [Moles/Vol] 4.3 mmol/L 3.7 - 5.3 mmol/L [facility] Protein [Mass/Vol] 6.8 g/dL 6.4 - 8.3 g/dL [facility] Sodium [Moles/Vol] 139 mmol/L 135 - 144 mmol/L [facility] Urea nitrogen [Mass/Vol] 14 mg/dL 6 - 20 mg/dL [facility] Urea nitrogen/Creatinine (Bld) [Mass ratio] 20 9 - 20 [facility] Lipid Panelon 05-01-2022 Cholesterol [Mass/Vol] 184 mg/dL NINF - 200 mg/dL [facility] Comment on above: Cholesterol Guidelines: <200 Desirable 200-240 Borderline >240 Undesirable Cholesterol in HDL [Mass/Vol] 54 mg/dL 40 - PINF mg/dL [facility] Comment on above: HDL Guidelines: <40 Undesirable 40-59 Borderline >59 Desirable Cholesterol in LDL [Mass/Vol] 111 mg/dL 0 - 130 mg/dL [facility] Comment on above: LDL Guidelines: <100 Desirable 100-129 Near to/above Desirable 130-159 Borderline >159 Undesirable Direct (measured) LDL and calculated LDL are not interchangeable tests. Cholesterol.total/C holesterol in HDL [Mass ratio] 3.4 {ratio} NINF - 5 [facility] Triglyceride [Mass/Vol] 94 mg/dL NINF - 150 mg/dL [facility] Comment on above: Triglyceride Guidelines: <150 Desirable 150-199 Borderline 200-499 High >499 Very high Based on AHA Guidelines for fasting triglyceride, December 2011. [facility] Lipid Profileon 05-01-2022 Cholesterol [Mass/Vol] 184 mg/dL Normal <200 [facility] Comment on above: Result Comment: Cholesterol Guidelines: <200 Desirable 200-240 Borderline >240 Undesirable Performed By: #### C DP, CRP, TSHX, CP, SED, ZFAST ####[facility] [address] [place] [address] Lab Director: Dustin Chang MD#### LIPR, VD25 ####[facility] [address] [place] [address] Lab Director: Wang Peralta MD Cholesterol in HDL [Mass/Vol] 54 mg/dL Normal >40 [facility] Comment on above: Result Comment: HDL Guidelines: <40 Undesirable 40-59 Borderline >59 Desirable Performed By: #### C DP, CRP, TSHX, CP, SED, ZFAST ####[facility] [address] [place], [place] [address])[phone] Director: Dustin Chang MD#### VAISHNAVI VD25 ####[facility] [address] [place] [address] Lab Director: Wang Peralta MD Cholesterol in LDL [Mass/Vol] 111 mg/dL Normal 0-130 [facility] Comment on above: Result Comment: LDL Guidelines: <100 Desirable 100-129 Near to/above Desirable 130-159 Borderline >159 Undesirable Direct (measured) LDL and calculated LDL are not interchangeable tests. Performed By: #### C DP, CRP, TSHX, CP, SED, ZFAST ####[facility] [address] [place], [place] [address])[phone] Director: Dustin Chang MD#### VAISHNAVI VD25 ####[place] [address] [place] [address] Lab Director: Wang Peralta MD Cholesterol.total/C holesterol in HDL [Mass ratio] 3.4 {ratio} Normal <5 [facility] Comment on above: Performed By: #### C DP, CRP, TSHX, CP, SED, ZFAST ####[facility] [address] [place], [place] [address])[phone] Director: Dustin Chang MD#### LIPMaryjane VD25 ####[facility] [place] [address] Lab Director: Wang Peralta MD Triglyceride [Mass/Vol] 94 mg/dL Normal <150 [facility] Comment on above: Result Comment: Triglyceride Guidelines: <150 Desirable 150-199 Borderline 200-499 High >499 Very high Based on AHA Guidelines for fasting triglyceride, December 2011. Performed By: #### C DP, CRP, TSHX, CP, SED, ZFAST ####[facility] [id number] [place] [address] Lab Director: Dustin Chang MD#### VAISHNAVI VD25 ####[facility] [address] [place], [place] [id number] Lab Director: Wang Peralta MD No Panel Informationon 05-01 [facility] Patient Fasting?on 3 Patient Fasting? YES [facility] Patient fasting?on 3 Patient fasting? YES Normal [facility] Comment on above: Performed By: #### C DP, CRP, TSHX, CP, SED, ZFAST #### [facility] [facility] [address] [place] [address] Junior Programmer: Dustin Chang MD #### [id number] #### [facility] [address] [place], [place] [id number] Junior Programmer: Wang Peralta MD Sedimentation Rateon 023 Sedimentation Rate 13 mm/Hr Normal 0-20 [facility] Comment on above: Performed By: #### C DP, CRP, TSHX, CP, SED, ZFAST #### [facility] [address] [place] [address] Junior Programmer: Dustin Chang MD #### VAISHNAVI, VD25 #### [facility] [address] [place], [place] [id number] Junior Programmer: Wang Peralta MD ESR (Bld) [Velocity] 13 mm/h [facility] TSH With Reflex Ft4on 2022 TSH Qn 3.51 m[IU]/L [facility] TSH w/reflex to FT4on 2022 Thyroid Stim. Horm. 3.51 uIU/mL Normal 0.30-5.00 [facility] Comment on above: Performed By: #### C DP, CRP, TSHX, CP, SED, ZFAST #### [facility] [address] [place] [address] Junior Programmer: Dustin Chang MD #### VAISHNAVI VD25 #### [facility] [address] [place] [address] Junior Programmer: Wang Peralta MD Vitamin D 25 Hydroxyon 05-01 25-hydroxyvitamin D3 [Mass/Vol] 17.4 ng/mL Low 29.9 - PINF ng/mL [facility] Comment on above: Reference Range: Vitamin D status Range Deficiency <20 ng/mL Mild Deficiency 20-30 ng/mL Sufficiency 30-100 ng/mL Toxicity >100 ng/mL Interpretation and review of laboratory results Abnormal [facility] Vitamin D 25 OHon 05-01-2022 Vitamin D 25 [place] 17.4 ng/mL Low >29.9 [facility] Comment on above: Result Comment: Reference Range: Vitamin D status Range Deficiency <20 ng/mL Mild Deficiency 20-30 ng/mL Sufficiency 30-100 ng/mL Toxicity >100 ng/mL Performed By: #### C DP, CRP, TSHX, CP, SED, ZFAST ####[facility] [id number] [place] [address] Lab Director: Dustin Chang MD#### VAISHNAVI VD25 ####[facility] [id number] [place], [place] [id number] Lab Director: MD Humberto Albarran 04-06-2022 L -- ---- Specimen: [id number] Received: 04/06/22 Status: SRIKANTH Santacruzpaige Num: [id number] Spec Type: Surgical Subm Dr: Charlie Cartagena DO Tissues: A Skin-Other than Cyst, tag, debridement or plastic repair (MIDLINE POSTERIOR B Skin-Other than Cyst, tag, debridement or plastic repair (LT ANTERIOR CHEST C Skin-Other than Cyst, tag, debridement or plastic repair (RT CHEEK) Procedures: Iman IQBAL/Nishant L4/3 ---- Age/ Patient Sex Location Account Attending Physician ---- Sherita Trevino [place] [id number] Charlie Cartagena DO ---- SPEC NUM: [id number] RECD: 04/06/22 STATUS: SRIKANTH SANDRA NUM: [id number] SANJAY: 04/06/[address] [facility] DR: Charlie Cartagena DO ENTERED: 04/06/22 [facility] DR: Abdirashid [facility] SPEC TYPE: Surgical DEPT: S ORDERED: HE/3, Gross/Micro L4/3 ORDERED: , Gross/Micro L4/3 Pathological Diagnosis A. Skin, midline posterior neck, shave biopsy: - Compound nevus approaching peripheral margin. B. Skin, left anterior chest wall, shave biopsy: - Compound nevus with features of seborrheic keratosis, transected. C. Skin, right cheek, excision: - Compound nevus, completely excised. Clinical Information Pigmented skin lesions right chin, left chest, posterior neck Gross Description A. Received in formalin labeled with the patient's name, number and pigmented lesion midline posterior neck is a 0.4 x 0.4 x 0.2 cm khan-pink skin which is inked and bisected. Entirely submitted in one cassette labeled A1. B. Received in formalin labeled with the patient's name, number and pigmented lesion left anterior chest wall are two khan, nodular skin fragments measuring 0.4 x 0.2 x 0.2 cm (inked black) and 0.7 x 0.5 x 0.2 cm (inked blue) the larger tissue is bisected. Entirely submitted in one cassette labeled B1. C. Received in formalin labeled with the patient's name, number and pigmented lesion right ---- Specimen: [id number] Received: 04/06/22 Status: SRIKANTH Pepe Num: [id number] Spec Type: Surgical Subm Dr: Charlie Cartagena DO Tissues: A Skin-Other than Cyst, tag, debridement or plastic repair (MIDLINE POSTERIOR B Skin-Other than Cyst, tag, debridement or plastic repair (LT ANTERIOR CHEST C Skin-Other than Cyst, tag, debridement or plastic repair (RT CHEEK) Procedures: , Gross/Micro L4/3 ---- Patient: Sherita Trevino [id number] (Continued) ---- Specimen: [id number] Received: 04/06/22 (Continued) Gross Description (Continued) Signed (signature on file) Yinka Black MD 04/09/22 1534 ---- Specimen: [id number] Received: 04/06/22 Status: SRIKANTH Pepe Num: [id number] Spec Type: Surgical Subm Dr: Charlie Cartagena DO Tissues: A Skin-Other than Cyst, tag, debridement or plastic repair (MIDLINE POSTERIOR B Skin-Other than Cyst, tag, debridement or plastic repair (LT ANTERIOR CHEST C Skin-Other than Cyst, tag, debridement or plastic repair (RT CHEEK) Procedures: YING/Sue, Iman/Nishant L4/3 ---- Patient: Sherita Trevino [id number] (Continued) ---- Specimen: [id number] Received: 04/06/22 (Continued) Gross Description (Continued) cheek is a 1.4 x 0.7 x 0.2 cm ellipse of khan-white skin with a central 0.4 x 0.4 cm khan brown macule. The specimen is inked and sectioned transversely. Entirely submitted in one cassette labeled C1. Microscopic Description A. One glass slide with H E stained material has been examined. B. One glass slide with H E stained material has been examined. C. One glass slide with H E stained material has been examined. The microscopic findings support the above pathologic diagnosis. CPT Codes 01471?3 ---- ---- Specimen: [id number] Received: 04/06/22 Status: SRIKANTH Pepe Num: [id number] Spec Type: Surgical Subm Dr: Charlie Cartagena, Tissues: A Skin- (more content not included)... Normal [facility] Ambulatory Clinical Summaryo n 12-10-2019 Ambulatory Clinical Summary {[id number] Normal [facility] Medicine Office/Clini c Noteon 12-10-2019 Family Medicine Office/Clinic Note Chief Complaint 1 mth wt check - start 3rd mth History of Present Illness Patient here for weight loss f/u Patient taking: phentermine #2 Wt. Loss: 3.3 # total 15# BMI: 32.1 Any side effects of medication? chest pain / palpitations: no dry mouth: not as much constipation: yes sometimes has been moving and stressed out so she has not been completely compliant with medication difficulty sleeping: sometimes, stress related as well Increased energy? still good Following weight loss diet? some days did not eat - diet not as good as it was in the beginning l Exercise: states walking here and there OARRS and Med Agreement up to date. had to move due to COVID - back with parents as could not afford there previous place and 2 kids 1 step son GERD - omeprazol 20 mg daily -states still not feeling well continues to have symptoms with medication get nauseated, heartburn states she is completely compliance with this medication as she carries it with her Father : severe GERD gets regular EDGs Review of Systems ROS - Provider Constitutional: no fever, no chills, no sweats, no weakness. Skin: no Jaundice, no rash, no lesions, no petechiae. ENMT: no ear pain, no sore throat, no congestion, no hoarseness. Respiratory: no shortness of breath, no cough, no orthopnea, no wheezing. Cardiovascular: no chest pain, no palpitations, no edema. Gastrointestinal: no nausea, no vomiting, no diarrhea, no GI bleeding. see hpi. Musculoskeletal: no back pain, no trauma. Neurologic: no headache, no dizziness, no numbness, no weakness. Psychiatric: no sleeping problems, no irritability, yes mood swings/depression. Heme/Lymph: no bleeding tendency, no bruising tendency, no petechiae, Additional ROS info: Except as noted in the above Review of Systems and in the History of Present Illness all other systems have been reviewed and are negative or noncontributory. Physical Exam Vitals & Measurements T: 36 ?C (Tympanic) HR: 94(Peripheral) RR: 20 BP: 118/82 HT: 165.0 cm HT: 165 cm WT: 87.5 kg WT: 87.5 kg BMI: 32.14 General: Well developed, well nourished, in no acute distress obese Head: Normocephalic/atraumat ic Eyes: Sclera / conjunctiva clear without injection Ears: Hearing grossly normal to conversational speech Nose: No deformity Mouth: No deformity Lungs: Normal respiratory effort and clear to auscultation Cardio: Regular rate and rhythm Pulses: Normal capillary refill Musculoskeletal: Gait Steady Extremity: No pedal / ankle edema Neurologic: Grossly normal Skin: No rashes, ulcerations, or suspicious lesions Mental Status: Alert and oriented x3. Normal mood and affect Assessment/Plan 1. Gastro-esophageal reflux (K21.9: Gastro-esophageal reflux disease without esophagitis) No improvement will increase omeprazole to 40 mg daily make sure to take first thing in the a.m. verbalizes understanding 2. BMI 32.0-32.9,adult (Z68.32: Body mass index (BMI) 32.0-32.9, adult) The standard range for ages 18 and older is >=18.5 and < 25 kg/m2. Your BMI today was above this range, this falls in the overweight to obese category and there are medical benefits to weight loss. We can offer counselling, referral, and/or medical support in addressing this problem. Your BMI and weight management will be followed at subsequent visits. 3. Obesity due to excess calories (E66.09: Other obesity due to excess calories) - To improve your health we recommend increasing your level of moderate exercise to at least 2.5 hrs per week. For more information, please visit the CDC Exercise and Fitness Recommendations at www.cdc.gov/physicalac tivity/basics/index.ht m Need to start paying attention to healthy diet again - will be difficult now that living with her parents Try to increase physical activity Follow-up With When Contact Information Suzanna ARENAS CNP In 1 month Additional Instructions: 1 mo wt check adipex completed Patient Education Gastroesophageal Reflux Disease, Adult, Tgrb-[id number] Problem List/Past Medical History Ongoing BMI 32.0-32.9,adult Eczema Gastro-esophageal reflux Miscarriage Obesity due to excess calories Historical Procedure/Surgical History Vaginal hysterectomy (09/15/2019), None, Tonsillectomy and adenoidectomy. Medications omeprazole 40 mg Cap-DR, 40 mg= 1 cap(s), Oral, Daily, 1 refills phentermine 37.5 mg Tab, 37.5 mg= 1 tab(s), Oral, Daily Allergies penicillins (hives) Social History Alcohol - Denies Alcohol Use, 10/25/2011 Employment/School Unemployed, 04/24/2014 Substance Abuse - Denies Substance Abuse, 10/25/2011 Tobacco - Denies Tobacco Use, 10/25/2011 Never (less than 100 in lifetime) Tobacco Use:. Never Smokeless Tobacco Use:. Cigarettes, 12/10/2019 Family History Hypertension: Father. Hypothyroidism: Mother. Immunizations Vaccine Date Status Comments influenza virus vaccine, inactivated 04/01/2012 Given New Med Order diphtheria/pertussis, acel/tetanus adult 04/01/2012 Given Other (see comment) [facility] Comment on above: Result Comment: Elec tronically Signed By: Suzanna ARENAS CNP\.br\Date and Time Signed: 12/10/19 09:28 EDT Patient Educationon 12-10-19 Patient Education Family Medicine Gastroesophageal Reflux Disease, Adult Gastroesophageal reflux disease (GERD) happens when acid from your stomach goes into your food pipe (esophagus ). The acid can cause a burning feeling in your chest. Over time, the acid can make small holes (ulcers ) in your food pipe. HOME CARE ? Ask your doctor for advice about: ? Losing weight. ? Quitting smoking. ? Alcohol use. ? Avoid foods and drinks that make your problems worse. You may want to avoid: ? Caffeine and alcohol. ? Chocolate. ? Mints. ? Garlic and onions. ? Spicy foods. ? Jarales fruits, such as oranges, jaclyn, or limes. ? Foods that contain tomato, such as sauce, chili, salsa, and pizza. ? Fried and fatty foods. ? Avoid lying down for 3 hours before you go to bed or before you take a nap. ? Eat small meals often, instead of large meals. ? Wear loose-fitting clothing. Do not wear anything tight around your waist. ? Raise (elevate ) the head of your bed 6 to 8 inches with wood blocks. Using extra pillows does not help. ? Only take medicines as told by your doctor. ? Do not take aspirin or ibuprofen. GET HELP RIGHT AWAY IF: ? You have pain in your arms, neck, jaw, teeth, or back. ? Your pain gets worse or changes. ? You feel sick to your stomach (nauseous ), throw up (vomit ), or sweat (diaphoresis ). ? You feel short of breath, or you pass out (faint ). ? Your throw up is green, yellow, black, or looks like coffee grounds or blood. ? Your poop (stool ) is red, bloody, or black. MAKE SURE YOU: ? Understand these instructions. ? Will watch your condition. ? Will get help right away if you are not doing well or get worse. Document Released: 08/20/2008 Document Revised: 2012 Document Reviewed: 09/21/2011 ExitCare? Patient Information ?2013 [employer]. Normal [facility] Ambulatory Clinical Summaryo n 11-12-2019 Ambulatory Clinical Summary {[id number] Normal [facility] Family Medicine Video Visit - Telehealthon 11-12-2019 Family Medicine Video Visit - Telehealth Chief Complaint 1 mth wt check up- start 2nd month of adipex History of Present Illness This visit was conducted via two-way, real-time interactive video communications from my office using [employer] due to the restrictions of the COVID-19 pandemic. No physical exam was conducted other than those areas of the body visible to telecommunications with the patient located at [facility] [id number], with children in attendance. If it is determined that the patient should be evaluated in the clinic, the patient will be directed to the appropriate clinic or venue. The patient or their guardian verbally consented to this visit. Video time was 15 minutes with the patient face to face greater than 50% in addition to counseling and coordination of care.j Patient here for weight loss f/u Patient taking: phentermine #1 Wt. Loss: 11# BMI: 32,6 Any side effects of medication? chest pain / palpitations: denies dry mouth: little drinking more water constipation: at first difficulty sleeping: - no problems Increased energy? yes Following weight loss diet? eating more fresh food, chicken Exercise: treadmill [place] and Med Agreement up to date. Review of Systems ROS - Provider Constitutional: no fever, no chills, no sweats, no weakness. Skin: no Jaundice, no rash, no lesions, no petechiae. Respiratory: no shortness of breath, no cough, no orthopnea, no wheezing. Cardiovascular: no chest pain, no palpitations, no edema. Gastrointestinal: no nausea, no vomiting, no diarrhea, no GI bleeding. Musculoskeletal: no back pain, no trauma. Neurologic: no headache, no dizziness, no numbness, no weakness. Psychiatric: no sleeping problems, no irritability, no mood swings/depression. Heme/Lymph: no bleeding tendency, no bruising tendency, no petechiae,. Additional ROS info: Except as noted in the above Review of Systems and in the History of Present Illness all other systems have been reviewed and are negative or noncontributory. Physical Exam Vitals & Measurements HT: 165.0 cm HT: 165 cm WT: 89.0 kg WT: 89 kg BMI: 32.69 General: Well developed, well nourished, in no acute distress Head: Normocephalic/atraumat ic Eyes: Sclera / conjunctiva clear without injection Ears: Hearing grossly normal to conversational speech Nose: No deformity Mouth: No deformity Lungs: Normal respiratory effort Musculoskeletal: Gait Steady Neurologic: Grossly normal Skin: No rashes, ulcerations, or suspicious lesions Mental Status: Alert and oriented x3. Normal mood and affect Assessment/Plan 1. Gastro-esophageal reflux (K21.9: Gastro-esophageal reflux disease without esophagitis) improved will continue with omeprazole 20 mg bid continue to work on weight loss phentermine #2 37.5 mg daily continue with daily exercise continue to work on healthy diet 2. BMI 32.0-32.9,adult (Z68.32: Body mass index (BMI) 32.0-32.9, adult) ..mabmi 3. Obesity due to excess calories (E66.09: Other obesity due to excess calories) - To improve your health we recommend increasing your level of moderate exercise to at least 2.5 hrs per week. For more information, please visit the CDC Exercise and Fitness Recommendations at www.cdc.gov/physicalac tivity/basics/index.ht m Orders: phentermine, 37.5 mg = 1 tab(s), Oral, Daily, Dx: Obesity 30 day supply BMI: 32, # 30 tab(s), Refills(s) 0, Pharmacy: [facility], 165, cm, 11/12/19 11:33:00 EDT, Height/Length Dosing, 89, kg, 11/12/19 11:33:00 EDT, Weight Dosing Follow-up With When Contact Information Suzanna ARENAS CNP In 1 month Additional Instructions: wt check Patient Education Gastroesophageal Reflux Disease, Adult, Ackj-lb-Wccr Problem List/Past Medical History Ongoing BMI 32.0-32.9,adult Eczema Gastro-esophageal reflux Miscarriage Obesity due to excess calories Historical Procedure/Surgical History Vaginal hysterectomy (09/15/2019), None, Tonsillectomy and adenoidectomy. Medications omeprazole 20 mg Cap-DR, 20 mg= 1 cap(s), Oral, Daily, 4 refills phentermine 37.5 mg Tab, 37.5 mg= 1 tab(s), Oral, Daily Allergies penicillins (hives) Social History Alcohol - Denies Alcohol Use, 10/25/2011 Employment/School Unemployed, 04/24/2014 Substance Abuse - Denies Substance Abuse, 10/25/2011 Tobacco - Denies Tobacco Use, 10/25/2011 Never (less than 100 in lifetime) Tobacco Use:. Never Smokeless Tobacco Use:. Cigarettes, 11/12/2019 Family History Hypertension: Father. Hypothyroidism: Mother. Immunizations Vaccine Date Status Comments influenza virus vaccine, inactivated 04/01/2012 Given New Med Order diphtheria/pertussis, acel/tetanus adult 04/01/2012 Given Other (see comment) Normal [facility] Comment on above: Result Comment: Elec tronically Signed By: Suzanna ARENAS CNP\.br\Date and Time Signed: 11/12/19 11:56 EDT Patient Educationon 11-12-19 Patient Education Family Medicine Gastroesophageal Reflux Disease, Adult Gastroesophageal reflux disease (GERD) happens when acid from your stomach goes into your food pipe (esophagus ). The acid can cause a burning feeling in your chest. Over time, the acid can make small holes (ulcers ) in your food pipe. HOME CARE ? Ask your doctor for advice about: ? Losing weight. ? Quitting smoking. ? Alcohol use. ? Avoid foods and drinks that make your problems worse. You may want to avoid: ? Caffeine and alcohol. ? Chocolate. ? Mints. ? Garlic and onions. ? Spicy foods. ? Jarales fruits, such as oranges, jaclyn, or limes. ? Foods that contain tomato, such as sauce, chili, salsa, and pizza. ? Fried and fatty foods. ? Avoid lying down for 3 hours before you go to bed or before you take a nap. ? Eat small meals often, instead of large meals. ? Wear loose-fitting clothing. Do not wear anything tight around your waist. ? Raise (elevate ) the head of your bed 6 to 8 inches with wood blocks. Using extra pillows does not help. ? Only take medicines as told by your doctor. ? Do not take aspirin or ibuprofen. GET HELP RIGHT AWAY IF: ? You have pain in your arms, neck, jaw, teeth, or back. ? Your pain gets worse or changes. ? You feel sick to your stomach (nauseous ), throw up (vomit ), or sweat (diaphoresis ). ? You feel short of breath, or you pass out (faint ). ? Your throw up is green, yellow, black, or looks like coffee grounds or blood. ? Your poop (stool ) is red, bloody, or black. MAKE SURE YOU: ? Understand these instructions. ? Will watch your condition. ? Will get help right away if you are not doing well or get worse. Document Released: 08/20/2008 Document Revised: 2012 Document Reviewed: 09/21/2011 ExitCare? Patient Information ?2013 [employer]. Normal [facility] Ambulatory Clinical Summaryo n 10-15-2019 Ambulatory Clinical Summary {[id number] Normal [facility] Family Medicine Office/Clini c Noteon 10-15-2019 Family Medicine Office/Clinic Note Chief Complaint discuss using adipex , frequent heartburn History of Present Illness Patient here for discuss weight loss medication States she has taken phentermine in the past Patient taking: will start phentermine BMI: 34 Any side effects of medication? chest pain / palpitations: no dry mouth:no constipation: no difficulty sleeping: no Following weight loss diet? cut out all pop - salads, chicken - watches portions Exercise: unable to lift for another two weeks due to hyst. [place] is on adipex as well they are working on wt loss together acid reflux has been dealing with feeling in her throat has had episode of vomiting after meal the last two days states she never vomits any food - states it feels like it is acid fullness feeling in her throat bread, rice and pop seems to aggravate her symptoms after eating makes it worse has awoken during the night with full feeling in her throat has not tried to treat with anything no treatment tried Review of Systems PHQ Score Initial Depression Screen Score: 0 ROS - Provider Constitutional: no fever, no chills, no sweats, no weakness. obese Skin: no Jaundice, no rash, no lesions, no petechiae.. Respiratory: no shortness of breath, no cough, no orthopnea, no wheezing. Cardiovascular: no chest pain, no palpitations, no edema. Gastrointestinal: no nausea, yes vomiting, no diarrhea, no GI bleeding. Musculoskeletal: no back pain, no trauma. Neurologic: no headache, no dizziness, no numbness, no weakness. Psychiatric: no sleeping problems, no irritability, no mood swings/depression. Heme/Lymph: no bleeding tendency, no bruising tendency, no petechiae Additional ROS info: Except as noted in the above Review of Systems and in the History of Present Illness all other systems have been reviewed and are negative or noncontributory. Physical Exam Vitals & Measurements T: 37 ?C (Tympanic) HR: 100(Peripheral) RR: 16 BP: 118/80 HT: 165 cm WT: 94.2 kg BMI: 34.6 General: Well developed, well nourished, in no acute distress obese Head: Normocephalic/atraumat ic Eyes: Sclera / conjunctiva clear without injection Ears: Hearing grossly normal to conversational speech Nose: No deformity Mouth: No deformity Lungs: Normal respiratory effort and clear to auscultation Cardio: Regular rate and rhythm Pulses: Normal capillary refill Abdomen: Soft, non-distended, non-tender with active bowel sounds Musculoskeletal: Gait Steady Extremity: No pedal / ankle edema Neurologic: Grossly normal Skin: No rashes, ulcerations, or suspicious lesions Mental Status: Alert and oriented x3. Normal mood and affect Assessment/Plan 1. Gastro-esophageal reflux (K21.9: Gastro-esophageal reflux disease without esophagitis) omeprazole 20 mg daily Counseled patient on medication administration and possible side effects will work on weight loss pdldjzwazzt90.5 mg daily Counseled patient on medication administration and possible side effects OARRS reviewed with no concerns. 2. Adult BMI 34.0-34.9 kg/sq m (Z68.34: Body mass index (BMI) 34.0-34.9, adult) The standard range for ages 18 and older is >=18.5 and < 25 kg/m2. Your BMI today was above this range, this falls in the overweight to obese category and there are medical benefits to weight loss. We can offer counselling, referral, and/or medical support in addressing this problem. Your BMI and weight management will be followed at subsequent visits. 3. Obesity due to excess calories (E66.09: Other obesity due to excess calories) - To improve your health we recommend increasing your level of moderate exercise to at least 2.5 hrs per week. For more information, please visit the CDC Exercise and Fitness Recommendations at www.cdc.gov/physicalac tivity/basics/index.ht m Orders: omeprazole, 20 mg = 1 cap(s), Oral, Daily, # 30 cap(s), Refills(s) 4, Pharmacy: [facility], 165, cm, 10/15/19 13:03:00 EDT, Height/Length Measured, 94.2, kg, 10/15/19 13:03:00 EDT, Weight Measured phentermine, 37.5 mg = 1 tab(s), Oral, Daily, Dx: Obesity 30 day supply BMI: 34, # 30 tab(s), Refills(s) 0, Pharmacy: [id number], 165, cm, 10/15/19 13:03:00 EDT, Height/Length Measured, 94.2, kg, 10/15/19 13:03:00 EDT, Weight Measured Follow-up With When Contact Information Suzanna ARENSA CNP In 1 month Additional Instructions: 1 mo wt check Patient Education Gastroesophageal Reflux Disease, Adult Problem List/Past Medical History Ongoing Adult BMI 34.0-34.9 kg/sq m Eczema Gastro-esophageal reflux Miscarriage Obesity due to excess calories Historical Procedure/Surgical History Vaginal hysterectomy (09/15/2019), None, Tonsillectomy and adenoidectomy. Medications omeprazole 20 mg Cap-DR, 20 mg= 1 cap(s), Oral, Daily, 4 refills phentermine 37.5 mg Tab, 37.5 mg= 1 tab(s), Oral, Daily Allergies penicillins (hives) Social History Alcohol - Denies Alcohol Use, 10/25/2011 Employment/School Unemployed, 04/24/2014 Substance Abuse - Denies Substance Abuse, 10/25/2011 Tobacco - Denies Tobacco Use, 10/25/2011 Never (less than 100 in lifetime) Tobacco Use:. Never Smokeless Tobacco Use:., 10/15/2019 Family History Hypertension: Father. Hypothyroidism: Mother. Immunizations Vaccine Date Status Comments influenza virus vaccine, inactivated 04/01/2012 Given New Med Order diphtheria/pertussis, acel/tetanus adult 04/01/2012 Given Other (see comment) [facility] Comment on above: Result Comment: Elec tronically Signed By: Suzanna ARENAS CNP\.br\Date and Time Signed: 10/15/19 19:31 EDT Patient Educationon 10-15-19 20 Patient Education Family Medicine Gastroesophageal Reflux Disease, Adult Gastroesophageal reflux disease (GERD) happens when acid from your stomach flows up into the esophagus. When acid comes in contact with the esophagus, the acid causes soreness (inflammation ) in the esophagus. Over time, GERD may create small holes (ulcers ) in the lining of the esophagus. CAUSES ? Increased body weight. This puts pressure on the stomach, making acid rise from the stomach into the esophagus. ? Smoking. This increases acid production in the stomach. ? Drinking alcohol. This causes decreased pressure in the lower esophageal sphincter (valve or ring of muscle between the esophagus and stomach), allowing acid from the stomach into the esophagus. ? Late evening meals and a full stomach. This increases pressure and acid production in the stomach. ? A malformed lower esophageal sphincter. Sometimes, no cause is found. SYMPTOMS ? Burning pain in the lower part of the mid-chest behind the breastbone and in the mid-stomach area. This may occur twice a week or more often. ? Trouble swallowing. ? Sore throat. ? Dry cough. ? Asthma-like symptoms including chest tightness, shortness of breath, or wheezing. DIAGNOSIS Your caregiver may be able to diagnose GERD based on your symptoms. In some cases, X-rays and other tests may be done to check for complications or to check the condition of your stomach and esophagus. TREATMENT Your caregiver may recommend ewau-whh-lufhwyd or prescription medicines to help decrease acid production. Ask your caregiver before starting or adding any new medicines. HOME CARE INSTRUCTIONS ? Change the factors that you can control. Ask your caregiver for guidance concerning weight loss, quitting smoking, and alcohol consumption. ? Avoid foods and drinks that make your symptoms worse, such as: ? Caffeine or alcoholic drinks. ? Chocolate. ? Peppermint or mint flavorings. ? Garlic and onions. ? Spicy foods. ? Jarales fruits, such as oranges, jaclyn, or limes. ? Tomato-based foods such as sauce, chili, salsa, and pizza. ? Fried and fatty foods. ? Avoid lying down for the 3 hours prior to your bedtime or prior to taking a nap. ? Eat small, frequent meals instead of large meals. ? Wear loose-fitting clothing. Do not wear anything tight around your waist that causes pressure on your stomach. ? Raise the head of your bed 6 to 8 inches with wood blocks to help you sleep. Extra pillows will not help. ? Only take [id number] or prescription medicines for pain, discomfort, or fever as directed by your caregiver. ? Do not take aspirin, ibuprofen, or other nonsteroidal anti-inflammatory drugs (NSAIDs). SEEK IMMEDIATE MEDICAL CARE IF: ? You have pain in your arms, neck, jaw, teeth, or back. ? Your pain increases or changes in intensity or duration. ? You develop nausea, vomiting, or sweating (diaphoresis ). ? You develop shortness of breath, or you faint. ? Your vomit is green, yellow, black, or looks like coffee grounds or blood. ? Your stool is red, bloody, or black. These symptoms could be signs of other problems, such as heart disease, gastric bleeding, or esophageal bleeding. MAKE SURE YOU: ? Understand these instructions. ? Will watch your condition. ? Will get help right away if you are not doing well or get worse. Document Released: 12/12/2005 Document Revised: 2012 Document Reviewed: 09/21/2011 ExitCare? Patient Information ?2013 [employer]. Normal [facility] CBCon 09-16-2019 Erythrocyte distribution width (RBC) [Entitic vol] 12.6 % 11.6 - 14.8 % [facility] Hematocrit (Bld) [Volume fraction] 33.7 % Low 36 - 46 % [facility] Hemoglobin (Bld) [Mass/Vol] 11.4 g/dL Low 12 - 16 g/dL [facility] Interpretation and review of laboratory results Abnormal [facility] MCH (RBC) [Entitic mass] 28.6 pg 26 - 34 pg [facility] MCHC (RBC) [Mass/Vol] 33.8 g/dL 31 - 37 g/dL [facility] MCV (RBC) [Entitic vol] 84.5 fL 80 - 100 fL [facility] Platelet mean volume (Bld) [Entitic vol] 9.6 fL 9.4 - 12.4 fL [facility] Platelets (Bld) [#/Vol] 260 10*3/uL [facility] RBC (Bld) [#/Vol] 3.99 10*6/uL [facility] W[facility] (Bld) [#/Vol] 11.37 10*3/uL [facility] CBCon 09-15-2019 Erythrocyte distribution width (RBC) [Entitic vol] 12.5 % 11.6 - 14.8 % [facility] Hematocrit (Bld) [Volume fraction] 41.0 % 36 - 46 % [facility] Hemoglobin (Bld) [Mass/Vol] 13.9 g/dL 12 - 16 g/dL [facility] Interpretation and review of laboratory results Normal [facility] MCH (RBC) [Entitic mass] 28.5 pg 26 - 34 pg [facility] MCHC (RBC) [Mass/Vol] 33.9 g/dL 31 - 37 g/dL [facility] MCV (RBC) [Entitic vol] 84.0 fL 80 - 100 fL [facility] Platelet mean volume (Bld) [Entitic vol] 9.5 fL 9.4 - 12.4 fL [facility] Platelets (Bld) [#/Vol] 301 10*3/uL [facility] RBC (Bld) [#/Vol] 4.88 10*6/uL [facility] WBC (Bld) [#/Vol] 8.58 10*3/uL [facility] Comprehensive Metabolic Pane humberto 09-15-2019 Albumin [Mass/Vol] 4.0 g/dL 3.2 - 5.2 g/dL [facility] ALP [Catalytic activity/Vol] 87 U/L 40 - 140 U/L [facility] ALT [Catalytic activity/Vol] 32 U/L 14 - 65 U/L [facility] Anion gap [Moles/Vol] 11 mmol/L 10 - 20 mmol/L [facility] AST [Catalytic activity/Vol] 12 U/L 0 - 45 U/L [facility] Bilirubin [Mass/Vol] 0.2 mg/dL 0 - 1.3 mg/dL [facility] Calcium [Mass/Vol] 9.3 mg/dL 8.4 - 10. 2 mg/dL [facility] Chloride [Moles/Vol] 110 mmol/L High 98 - 108 mmol/L [facility] Creatinine [Mass/Vol] 0.68 mg/dL 0.40 - 1.10 [facility] GFR/1.73 sq M predicted among non-blacks MDRD (S/P/Bld) [Vol rate/Area] The eGFR should be used for monitoring renal function only and not for medication dosing. [facility] GFR/1.73 sq M.predicted CKD-EPI (S/P/Bld) [Vol rate/Area] 119 >=60 mL/min/1.73 m2 [facility] Glucose [Mass/Vol] 91 mg/dL 65 - 99 mg/dL [facility] HCO3 [Moles/Vol] 22 mmol/L 21 - 32 mmol/L [facility] Interpretation and review of laboratory results Abnormal [facility] Potassium [Moles/Vol] 4.3 mmol/L 3.5 - 5.1 mmol/L [facility] Protein [Mass/Vol] 7.7 g/dL 6 - 8 g/dL [facility] alth Sodium [Moles/Vol] 139 mmol/L 135 - 145 mmol/L [facility] Urea nitrogen [Mass/Vol] 16 mg/dL 8 - 25 mg/dL [facility] Urea nitrogen/Creatinine [Mass ratio] 23.5 mg/mg High [facility] Type and Screenon 09-15-2019 ABO and Rh group Nom (Bld) O Negative [facility] Blood group antibody screen Ql Negative [facility] Specimen Expires 09/18/2019 23:59 EST [facility] URINALYSISon 09-15-2019 Bacteria Auto Ql (U) Rare Abnormal None Seen /hpf [facility] Bilirubin Ql (U) Negative Negative [facility] th Clarity Refractometry automated (U) Clear Clear [facility] Color (U) Yellow Colorless, Yellow [facility] Epithelial cells.squamous Auto (Urine sed) [#/Area] 5 High [facility] Glucose Auto test strip (U) [Mass/Vol] Negative Negative mg/dL [facility] Hemoglobin Auto test strip Ql (U) Negative Negative [facility] Interpretation and review of laboratory results Abnormal [facility] Ketones (U) [Mass/Vol] Negative Negative mg/dL [facility] Leukocyte esterase Auto test strip Ql (U) Moderate Abnormal Negative [facility] Mucus Auto (Urine sed) [#/Area] Rare None Seen, Rare /lpf [facility] Nitrite Auto test strip Ql (U) Negative Negative [facility] pH (U) 5.5 [pH] [facility] Protein (U) [Mass/Vol] Negative Negative mg/dL [facility] RBC Auto (Urine sed) [#/Area] 3 [facility] Specific gravity (U) [Rel density] >=1.030 High [facility] Urobilinogen (U) [Mass/Vol] <2.0 <2.0 mg/dL [facility] WBC Auto (Urine sed) [#/Area] 15 High [facility] Microscopic examination is performed on all urinalysis samples and only positive findings are reported. The test for blood on the chemical analytic portion of urinalysis may also be positive due to hemoglobinuria and myoglobinuria and if red blood cells are present they are quantified by microscopic examination. [facility] hCG, Serum, Qualitativeon Beta HCG ( test) Ql Negative Negative [facility] Interpretation and review of laboratory results Normal [facility] Negative: The result is less than or equal to 5 mIU/mL of HCG. [facility] SCAN OTHER ORDERSon 09-14-19 20 Ordered by an unspecified provider. [facility] ABORH VERIFICATIONon 019 ABO and Rh group Nom (Bld) O Negative [facility] ABO and Rh group Nom (Bld) ABO/Rh Verification [facility] Patient's ABO/Rh is verified. [facility] CBC WITH AUTO DIFFERENTIALon 10-10-2018 Basophils (Bld) [#/Vol] 0.03 10*3/uL [facility] Basophils/100 WBC (Bld) 0.4 % [facility] Eosinophils (Bld) [#/Vol] 0.20 10*3/uL [facility] Eosinophils/100 WBC (Bld) 2.6 % [facility] Erythrocyte distribution width (RBC) [Entitic vol] 12.3 % 11.6 - 14.8 % [facility] Hematocrit (Bld) [Volume fraction] 37.7 % 36 - 46 % [facility] Hemoglobin (Bld) [Mass/Vol] 12.9 g/dL 12 - 16 g/dL [facility] Immature granulocytes (Bld) [#/Vol] 0.01 10*3/uL [facility] Immature granulocytes/100 WBC (Bld) 0.10 % [facility] Comment on above: The IG parameter is the percentage of metamyelocytes, myelocytes, and promyelocytes. Lymphocytes (Bld) [#/Vol] 1.94 10*3/uL [facility] Lymphocytes/100 WBC (Bld) 25.4 % [facility] MCH (RBC) [Entitic mass] 29.1 pg 26 - 34 pg [facility] MCHC (RBC) [Mass/Vol] 34.2 g/dL 31 - 37 g/dL [facility] MCV (RBC) [Entitic vol] 84.9 fL 80 - 100 fL [facility] Monocytes (Bld) [#/Vol] 0.49 10*3/uL [facility] Monocytes/100 WBC (Bld) 6.4 % [facility] Neutrophils (Bld) [#/Vol] 4.96 10*3/uL [facility] Neutrophils/100 WBC (Bld) 65.1 % [facility] Platelet mean volume (Bld) [Entitic vol] 9.8 fL 9 - 15.5 fL [facility] Platelets (Bld) [#/Vol] 240 10*3/uL [facility] RBC (Bld) [#/Vol] 4.44 10*6/uL [facility] WBC (Bld) [#/Vol] 7.63 10*3/uL [facility] Comprehensive Metabolic Pane humberto 10-10-2018 Albumin [Mass/Vol] 3.7 g/dL 3.2 - 5.2 g/dL [facility] ALP [Catalytic activity/Vol] 57 U/L 40 - 140 U/L [facility] ALT [Catalytic activity/Vol] 27 U/L 14 - 65 U/L [facility] Anion gap [Moles/Vol] 13 mmol/L 10 - 20 mmol/L [facility] AST [Catalytic activity/Vol] 15 U/L 0 - 45 U/L [facility] Bilirubin [Mass/Vol] 0.3 mg/dL 0 - 1.3 mg/dL [facility] Calcium [Mass/Vol] 8.6 mg/dL 8.4 - 10. 2 mg/dL [facility] Chloride [Moles/Vol] 109 mmol/L High 98 - 108 mmol/L [facility] Creatinine [Mass/Vol] 0.71 mg/dL 0.4 - 1.1 mg/dL [facility] GFR/1.73 sq M predicted among non-blacks MDRD (S/P/Bld) [Vol rate/Area] The eGFR should be used for monitoring renal function only and not for medication dosing. [facility] GFR/1.73 sq M.predicted CKD-EPI (S/P/Bld) [Vol rate/Area] 117 >=60 mL/min/1.73 m2 [facility] Glucose [Mass/Vol] 90 mg/dL 65 - 99 mg/dL [facility] HCO3 [Moles/Vol] 24 mmol/L 21 - 32 mmol/L [facility] Interpretation and review of laboratory results Abnormal [facility] Potassium [Moles/Vol] 3.9 mmol/L 3.5 - 5.1 mmol/L [facility] Protein [Mass/Vol] 6.9 g/dL 6 - 8 g/dL [facility] alth Sodium [Moles/Vol] 142 mmol/L 135 - 145 mmol/L [facility] Urea nitrogen [Mass/Vol] 10 mg/dL 8 - 25 mg/dL [facility] Urea nitrogen/Creatinine [Mass ratio] 14.1 mg/mg [facility] Type and Screenon 10-10-2018 ABO and Rh group Nom (Bld) O Negative [facility] Blood group antibody screen Ql Negative [facility] Specimen Expires 10/13/2018 23:59 EST [facility] URINALYSISon 10-10-2018 Bacteria Auto Ql (U) Many Abnormal None Seen /hpf [facility] Bilirubin Ql (U) Negative Negative [facility] th Clarity Refractometry automated (U) Cloudy Abnormal Clear [facility] Color (U) Yellow Colorless, Yellow [facility] Epithelial cells.squamous Auto (Urine sed) [#/Area] 10 High [facility] Glucose Auto test strip (U) [Mass/Vol] Negative Negative mg/dL [facility] Hemoglobin Auto test strip Ql (U) Negative Negative [facility] Interpretation and review of laboratory results Abnormal [facility] Ketones (U) [Mass/Vol] Negative Negative mg/dL [facility] Leukocyte esterase Auto test strip Ql (U) Moderate Abnormal Negative [facility] Mucus Auto (Urine sed) [#/Area] Few Abnormal None Seen, Rare /lpf [facility] Nitrite Auto test strip Ql (U) Negative Negative [facility] pH (U) 5.5 [pH] [facility] Protein (U) [Mass/Vol] Negative Negative mg/dL [facility] Specific gravity (U) [Rel density] 1.025 [facility] Urobilinogen (U) [Mass/Vol] <2.0 <2.0 mg/dL [facility] WBC Auto (Urine sed) [#/Area] 8 High [facility] Microscopic examination is performed on all urinalysis samples and only positive findings are reported. The test for blood on the chemical analytic portion of urinalysis may also be positive due to hemoglobinuria and myoglobinuria and if red blood cells are present they are quantified by microscopic examination. [facility] hCG, Serum, Qualitativeon Beta HCG ( test) Ql Negative Negative [facility] Interpretation and review of laboratory results Normal [facility] Negative: The result is less than or equal to 5 mIU/mL of HCG. [facility] SCAN OTHER ORDERSon 10-10-19 19 Ordered by an unspecified provider. [facility] GYNon 01-21-2018 PARISH WORKER Name: SHERITA TREVINO LSourhi Thin Prep Cervical/Endocervical- Pap Smear Clinical History None given Specimen Adequacy Satisfactory No transformation zone component identified. Diagnosis Negative for Intraepithelial Lesion or Malignancy. Fungal organisms morphologically consistent with Krista species are present. Electronically Signed By María Elena Ruiz , Screening performed at [facility] (Case signed 01/29/2018) The Papanicolaou smear is a screening tool, and like any screen, has an inherent false negative rate. Interpretation of results should be made in the context of patient history and clinical findings. Normal [facility] Vital Signs Date Time Vital Sign Value Performing Clinician Facility 07-27-2022 23:05-0400 Body height 167.6 cm Batsheva Franco MD Work Phone: [facility] 07-27-2022 23:05-0400 Body mass index (BMI) [Ratio] 32.94 kg/m2 Batsheva Franco MD Work Phone: [facility] 07-27-2022 23:05-0400 Body temperature 98.1 [degF] Batsheva Franco MD Work Phone: [facility] 07-27-2022 23:05-0400 Body weight 92.58 kg Batsheva Franco MD Work Phone: [facility] 07-27-2022 23:05-0400 Diastolic blood pressure 53 mm[Hg] Batsheva Franco MD Work Phone: [facility] 07-27-2022 23:05-0400 Heart rate 94 /min Batsheva Franco MD Work Phone: [facility] 07-27-2022 23:05-0400 Respiratory rate 18 /min Batsheva Franco MD Work Phone: [facility] 07-27-2022 23:05-0400 SaO2% (BldA) [Mass fraction] 99 % Batsheva Franco MD Work Phone: [facility] 07-27-2022 23:05-0400 Systolic blood pressure 124 mm[Hg] Batsheva Franco MD Work Phone: [facility] 09-16-2019 04:15-0400 Body Temperature 98.91 [degF] Orestes Harrell [facility] 09-16-2019 04:15-0400 BP Diastolic 70 mm[Hg] Orestesmeet Harrell [facility] 09-16-2019 04:15-0400 BP Systolic 109 mm[Hg] Orestesmeet Harrell [facility] 09-16-2019 04:15-0400 Pulse (Heart Rate) 88 /min Orestesmeet Harrell [facility] 09-16-2019 04:15-0400 Pulse Oximetry 99 % [facility]-16[facility] 04:15-0400 Respiratory Rate 16 /min [facility] 09-15-2019 07:42-0400 BMI (Body Mass Index) 32.28 kg/m2 [facility] 09-15-2019 07:42-0400 Body [facility] 90.72 [facility] 07:42-0400 Height 167.6 cm [facility] 10-10-2018 10:00-0400 Body Temperature 98.01 [degF] [facility] 10-10-2018 10:00-0400 BP Diastolic 73 mm[Hg] [facility] 10-10-2018 10:00-0400 BP Systolic 101 mm[Hg] [facility] 10-10-2018 10:00-0400 Pulse (Heart Rate) 83 /min [facility] 10-10-2018 10:00-0400 Pulse Oximetry 99 % [facility] 10-10-2018 10:00-0400 Respiratory Rate 16 /min [facility] 10-10-2018 06:12-0400 BMI (Body Mass Index) 30.79 kg/m2 [facility] 10-10-2018 06:12-0400 Body weight 83.92 kg [facility] 10-10-2018 06:12-0400 Height 165.1 cm [facility] Encounters Encounter Date Encounter Type Care Provider Facility Start: 04-08-2023 End: 04-08-2023 ambulatory KODI FORTUNE Not Available Start: 09-03-2022 End: 09-06-2022 ambulatory KATERINA Gallego [facility] Start: 08-20-2022 End: 08-23-2022 ambulatory KATERINA M [facility] Start: 08-20-2022 End: 08-20-2022 Subsequent hospital visit by physician Katerina Monreal APRN - DAGO Work Phone: [facility] Comment on above: Burning with urinati on; Dysuria; Family history of kidney stones; Acute right flank pain Start: 08-20-2022 End: 08-22-2022 Subsequent hospital visit by physician Dona Zeng Rad [address] [facility] Radiology Comment on above: Burning with urinati on; Dysuria; Family history of kidney stones; Acute right flank pain Start: 07-28-2022 Emergency department patient visit [facility] Start: 07-27-2022 End: 07-28-2022 Emergency department patient visit Batsheva Franco MD Work Phone: [facility] ED Comment on above: Benign paroxysmal po sitional vertigo, unspecified laterality (Primary Dx); Dehydration; Pleuritic chest pain Start: 06-04-2022 End: 06-05-2022 ambulatory [facility] Start: 06-04-2022 Encounter for gynecological examination (general) (routine) without abnormal findings [facility] Start: 06-04-2022 End: 06-04-2022 Patient encounter procedure Katerina Olivares CNP Work Phone: [facility] Start: 06-04-2022 End: 06-04-2022 Subsequent hospital visit by physician Katerina Olivares CNP Work Phone: [facility] Comment on above: Well woman exam with routine gynecological exam Start: 05-01-2022 End: 05-02-2022 ambulatory [facility] Start: 05-01-2022 End: 05-01-2022 Subsequent hospital visit by physician Katerina Olivares CNP Work Phone: [facility] Comment on above: Screening, anemia, d eficiency, iron; Screening for thyroid disorder; Acute non-recurrent maxillary sinusitis; Frontal headache; Vitamin D deficiency; Screening for diabetes mellitus; Screening cholesterol level Start: 04-06-2022 End: 04-06-2022 ambulatory Charlie Cartagena Facility:[facility] Start: 11-01-2021 ambulatory [facility] Start: 12-22-2020 End: 12-27-2020 ambulatory ORESTES PETTITIMARAES [facility] [facility] Start: 09-15-2019 End: 09-16-2019 Subsequent hospital visit by physician Orestes Harrell Work Phone: [facility] Labor & Delivery Comment on above: Post-op pain (Primar y Dx) Start: 10-10-2018 End: 10-10-2018 Subsequent hospital visit by physician Orestes Harrell Work Phone: [facility] Periop Comment on above: Post-op pain (Primar y Dx) Start: 01-21-2018 Patient encounter procedure Orestes Harrell Facility:[facility] Date Procedure Procedure Detail Performing Clinician Start: 08-20-2022 Radiologic exam abdo men 1 view Katerina Monreal SENIOR INTEGRATION DEVELOPER - NEGATIVE RESTORER Work Phone: Start: 07-27-2022 Comprehensive metabo lic panel Batsheva Franco MD Work Phone: Start: 06-04-2022 Microscopic observat ion [Identifier] in Cervix by Cyto stain Batsheva Franco MD Work Phone: Start: 05-01-2022 Comprehensive metabo lic panel Katerina Monreal SENIOR INTEGRATION DEVELOPER - NEGATIVE RESTORER Work Phone: Start: 05-01-2022 Lipid panel Katerina miranda SENIOR INTEGRATION DEVELOPER - NEGATIVE RESTORER Work Phone: Start: 05-01-2022 PATIENT FASTING? Katerina Monreal SENIOR INTEGRATION DEVELOPER - NEGATIVE RESTORER Work Phone: Start: 09-16-2019 Complete blood count (hemogram) panel - Blood by Automated count Orestes Harrell Work Phone: Start: 09-15-2019 End: 09-15-2019 HYSTERECTOMY VAGINAL Orestes Diaz s Work Phone: Start: 09-15-2019 Blood type and Indir ect antibody screen panel - Blood Orestes Harrell Work Phone: Start: 09-15-2019 Choriogonadotropin.b eta subunit ( test) [Presence] in Serum or Plasma Orestes Harrell Work Phone: Start: 09-15-2019 Complete blood count (hemogram) panel - Blood by Automated count Orestes Harrell Work Phone: Start: 09-15-2019 Comprehensive metabo lic 2000 panel - Serum or Plasma Orestes Harrell Work Phone: Start: 09-15-2019 Urinalysis Orestes Harrell Work Phone: Start: 09-14-2019 SCAN OTHER ORDERS Provi radha Not In System Start: 10-10-2018 Urinalysis Orsetes Harrell Work Phone: Start: 10-10-2018 Blood group typing Orestes Harrell Work Phone: Start: 10-10-2018 Blood type and Indir ect antibody screen panel - Blood Orestes Harrell Work Phone: Start: 10-10-2018 Choriogonadotropin.b eta subunit ( test) [Presence] in Serum or Plasma Orestes Harrell Work Phone: Start: 10-10-2018 Complete blood count with white cell differential, automated Orestes Harrell Work Phone: Start: 10-10-2018 Complete blood count with white cell differential, manual Orestes Harrell Work Phone: Start: 10-10-2018 Comprehensive metabo lic 2000 panel - Serum or Plasma Orestes Harrell Work Phone: Start: 10-09-2018 SCAN OTHER ORDERS Provi radha Not In System Start: 01-21-2018 Microscopic observat ion [Identifier] in Cervix by Cyto stain Orestes Harrell Plan of Treatment Date Care Activity Detail Author Start: 06-04-2025 Screening for malign ant neoplasm of cervix [facility] [email or web address] Start: 04-30-2023 Depression Screen Depression Screen [facility] [email or web address] Start: 10-16-2022 Influenza vaccination Flu vacc ine (Season Ended) [facility] [email or web address] Start: 06-04-2022 End: 06-04-2022 Patient encounter procedure 06/04/2022 Office Visit Family Medicine Katerina Monreal, SENIOR INTEGRATION DEVELOPER - NEGATIVE RESTORER [address] [place] [address] [facility] Start: 04-01-2022 DTaP/Tdap/Td vaccine (2 - Td or Tdap) DTaP/Tdap/Td vaccine (2 - Td or Tdap) [facility] Start: 10-16-2021 Influenza vaccination Flu vaccine (# 1) [facility] Start: 05-25-2021 Screening for malign ant neoplasm of cervix [facility] Start: 01-21-2021 Screening for malign ant neoplasm of cervix Pap Smear [facility] Start: 09-08-2020 COVID-19 Vaccine (3 - Booster for Moderna series) COVID-19 Vaccine (3 - Booster for Moderna series) [facility] Start: 11-17-2019 Influenza vaccinatio n given Sequential Influenza Vaccine (#1) [facility] Start: 05-25-2012 Screening for malign ant neoplasm of cervix Pap smear [facility] Start: 05-25-2009 Hepatitis C screening Hepatitis C sc reen [facility] Start: 05-25-2006 HIV screening HIV screen [facility] Start: 05-25-1994 History and physical examination, annual for health maintenance Wellness Visit [facility] Start: 05-25-1992 Varicella vaccine (1 of 2 - 2-dose childhood series) Varicella vaccine (1 of 2 - 2-dose childhood series) [facility] Start: 1991 COVID-19 Vaccine (#1) COVID-19 Vacci ne (#1) [facility] Start: 1991 Tetanus vaccination Tetanus: Every 1 0yrs [facility] End: 08-20-2022 Culture, Urine [facility] [employer] Work Phone: Comment on above: 1 Occurrences starti ng 08/20/2022 until 08/20/2022 End: 06-04-2022 Cytopathology procedure, preparation of smear, genital source PAP Smear Lab Routine Well woman exam with routine gynecological exam 1 Occurrences starting 06/04/2022 until 06/04/2022 [facility] [employer] Phone: Comment on above: 1 Occurrences starti ng 06/04/2022 until 06/04/2022 Procedure on tissue specimen [facility] Comment on above: Once for 1 Occurrenc es starting 10/10/2018, 1 completed Release Upon Orderin g for 1 Occurrences starting 09/15/2019, 1 completed End: 07-27-2022 [facility] [employer] Work Phone: Comment on above: Once for 1 Occurrenc es starting 07/27/2022 until 07/27/2022 Payers Date Payer Category Payer Self-pay 2021 Unknown [id number] 2020 Unknown [id number] 2018 Unknown [id number] 2014 Private Health Insurance [id number] 2014 Private Health Insurance AETNA A ETNA CHOICE POS/POSII/PREMIER CARE/PREMIER CARE PLUS xxxxxxxxxx 2014-Present xxxxxxxxxx [id number] 1991 Unknown [id number] 1991 Unknown [id number] 1991 Unknown [id number] 1991 Unknown [id number] 1991 Unknown [id number] 1991 Unknown [id number] 1991 Unknown [id number] 1991 Unknown [id number] 1991 Unknown [id number] 1991 Unknown [id number] 1991 Unknown [id number] Unknown [id number] Social History Date Type Detail Facility Start: 10-10-2018 End: 08-17-2020 Tobacco smoking status NDIS Never smoker [employer] Start: 10-09-2018 End: 04-30-2022 History SDOH Alcohol Frequency 1 [facility] Sex Assigned At Not on file [facility] Start: 09-15-2019 End: 08-20-2022 Alcohol intake Lifetime non-drinker (finding) [facility] Exposure to SARS-CoV -2 (event) Not sure [facility] Start: 08-17-2020 Tobacco use and exposure Smokeless tobacco non-user [employer] Phone: Start: 04-30-2022 History SDOH Financial 5 [employer] Phone: Start: 04-30-2022 History SDOH Transpo rt Non-Med 2 [employer] Phone: Start: 1990 Sex Assigned At Female B ON [email or web address] Start: 07-28-2022 History SDOH Alcohol Std Drinks 0 [employer] Phone: Evaluation note Note Date & Type Note Facility Evaluation note Diagnosis Screening, anemia, deficiency, iron Screening for iron deficiency anemia Screening for thyroid disorder Acute non-recurrent maxillary sinusitis Frontal headache Headache Vitamin D deficiency Unspecified vitamin D deficiency Screening for diabetes mellitus Screening cholesterol level Screening for lipoid disorders documented in this encounter [employer] Phone: Evaluation note Note Date & Type Note Facility Evaluation note Diagnosis Well woman exam with routine gynecological exam Routine gynecological examination documented in this encounter [employer] Phone: Evaluation note Note Date & Type Note Facility Evaluation note Diagnosis Benign paroxysmal positional vertigo, unspecified laterality- Primary Dehydration Pleuritic chest pain Painful respiration documented in this encounter [facility] [employer] Phone: Evaluation note Note Date & Type Note Facility Evaluation note Diagnosis Burning with urination Dysuria Dysuria Family history of kidney stones Family history of other kidney diseases Acute right flank pain Abdominal pain, unspecified site documented in this encounter [facility] [employer] Phone: Evaluation note Note Date & Type Note Facility Evaluation note Diagnosis Burning with urination Dysuria Dysuria Family history of kidney stones Family history of other kidney diseases Acute right flank pain Abdominal pain, unspecified site documented in this encounter [employer] Phone: Hospital Discharge instructions Attachments Note Date & Type Note Facility Hospital Discharge instructions The following attachments cannot be sent through Care Everywhere.BPPV (Benign Paroxysmal Positional Vertigo) (Brazilian)Chest Pain: Musculoskeletal (Brazilian)documented in this encounter [facility] [employer] Phone: Summary Purpose Family History No Family History Records FoundNo Family History Records FoundNo Family History Records FoundNo Family History Records FoundNo Family History Records FoundNo Family History Records FoundNo Family History Records FoundNo Family History Records Found Advance Directives No Advanced Directives Records FoundDocuments on File Type Date Recorded Patient Pharmacy Billing Adjudicator Expl anation Advance Directives and Livin g Will 10/10/2018 5:47 AM Documents on File Type Date Recorded Patient Pharmacy Billing Adjudicator Expl anation Advance Directives and Livin g Will 09/15/2019 7:15 AM Latest Code Status on File Code Status Date Activated Date Inactivated Comments Full Code 09/15/2019 11:39 AM 09/16/2019 3:22 PM Discharge Instructions * Instructions* Radha Valdez RN - 10/10/2018 Dr. Harrell Obstetrics and Gynecology Laparoscopy: Includes outpatient tubal-ligation, Diagnostic Laparoscope, or any procedure done laparoscopically and released the same day. Remember you have had a minor procedure through a small incision! 1. Avoid heavy lifting or straining, as well as exercises or sports for one week. 2. Remove Band-aids or strips the following morning. 3. Take prescribed medicine for pain. 4. Avoid intercourse for a minimum of one week. 5. You may return to work in 2-3 days. [address] You may drive a car in 48 hours, if you are not using narcotics for pain relief. 7. You may shower or tub bathe. 8. You may feel bloated or sore, and during the first 4-8 hours you may have shoulder pain from residual gas within the abdomen. 9. Call the office the next working day to schedule an appointment as directed. Dilation and Curettage (D&C): Suction Curettage (S&C): or Endometrial Resection and Ablation: 1. Do not wear tampons. 2. Use Ibuprofen (Advil or Motrin) for cramping. 3. Take antibiotics as prescribed. 4. You may bleed or spot for 4-5 days. Call the office if bleeding is heavy. 5. Avoid intercourse for 3-4 weeks. 6. Call office the next working day to schedule an appointment as directed. Cold Cone Biopsy of the Cervix: 1. Do not wear Tampons (PADS ONLY) and DO NOT DOUCHE! 2. No stressful exercise for 2 weeks. 3. Take Ibuprofen (Advil or Motrin) for pain or cramping. 4. Avoid intercourse for 4-6 weeks. 5. Call the office the next working day to schedule appointment as directed. General: 1. Call the office if you have a temperature over 101 degrees Fahrenheit. 2. Call the office if you have severe abdominal pain or cramping. 3. Call the office if you have heavy vaginal bleeding. documented in this encounter* Attachments The following attachments cannot be sent through Care Everywhere. * Hysterectomy: Vaginal: Post-op (Brazilian) documented in this encounter Assessments Diagnosis Post-op pain- Primary Other acute postoperative pain Diagnosis Post-op pain Other acute postoperative pain History of Present Illness * Shweta Alvarez RN - 09/16/2019 8:32 AM EDT Omer documented in this encounter Additional Source Comments INFORMATION SOURCE (unrecogn ized section and content) DATE CREATED AUTHOR 02/23/2018 [facility] DATE CREATED AUTHOR AUTHOR'S ORGANIZ ATFORMERLY [facility] 01/09/2020 [facility] DATE CREATED AUTHOR AUTHOR'S ORGANIZ ATION 12/26/2020 [facility] DATE CREATED AUTHOR AUTHOR'S ORGANIZ ATION 12/31/2020 [facility] DATE CREATED AUTHOR AUTHOR'S ORGANIZ ATION 11/08/2021 [facility] DATE CREATED AUTHOR AUTHOR'S ORGANIZ ATION 07/27/2022 [facility] DATE CREATED AUTHOR AUTHOR'S ORGANIZ ATION 09/06/2022 [facility]isa [facility] DATE CREATED AUTHOR AUTHOR'S ORGANIZ ATION 04/08/2023 [facility] EPIC Reason for Visit (unrecogniz ed section and content) Status Reason Specialty Diagnoses / Procedures Referre d By Contact Referred To Contact Diagnoses RIGHT OVARIAN CYST Procedures LAPAROSCOPIC RIGHT OVARIAN CYSTECTOMY Status Reason Specialty Diagnoses / Procedures Referre d By Contact Referred To Contact Diagnoses PELVIC PAIN, ADENOMYOSIS Procedures HYSTERECTOMY VAGINAL LAPAROSCOPIC ASSISTED Reason Comments Dizziness Also having chest pa in and productive cough with mucus. Has had 4 dizzy spells in last 2 days. Orestes Harrell MD - 10/10/2018 7:23 AM Orestes Mendez MD - 10/09/2018 5:09 PM Orestes Mendez MD - 09/15/2019 8:48 AM EDT H&P Notes (unrecognized sect ion and content) INTERVAL HISTORY AND PHYSICAL Patient Name: Sherita Trevino Admit Date: [id number] MR #: [id number] : 1990 The H&P has been reviewed and the patient has been examined. I concur with the findings of the H&P. There are no significant changes. It is appropriate to proceed with the planned procedure. Orestes Harrell MD 10/10/2018 7:23 AM History and Physical Assessment/Plan: Acute abdominal pain, tender right ovarian cyst. The patient gives full informed consent for laparoscopic treatment of her ovarian cyst. Subjective: Sherita Trevino is an 28 y.o. female. HPI: She is 3 para 2-0-1-2. Her last menstrual period was 10/01. I originally saw her on October 03 of this year, in my office, in follow-up from an emergency room visit. She had been seen in the [place] emergency room on 09/26 with a normal white blood cell count and a CAT scan that was suggestive of a pelvic adnexal cyst. In my office on October 03, I confirmed that she had a 4 cm simple cyst on the right with some free fluid. Her test was still negative. I started her on control pills in an attempt to help the cyst shrink. She did well for several days but had severe right lower quadrant pain today and came to my office. The ultrasound findings were the same with a 4 cm right ovarian cyst but there was no free fluid in the pelvis. Her urine test was negative. And on exam she had remarkable tenderness when I touched her right adnexa. I gave her the option of pain medications which she declined. I therefore advised that we proceed with a laparoscopic treatment of this tender right ovarian cyst. She gave full informed consent. Past Surgical History: Procedure Laterality Date TONSILLECTOMY History reviewed. No pertinent family history. History reviewed. No pertinent past medical history. OB HISTORY: 2012 vaginal delivery at 35 weeks gestation of a 7 pound 7 ounce male. 2014 vaginal delivery at 40 weeks gestation of a 7 pound male. 2009 missed at 10 weeks gestation. Allergies: Penicillins No current facility-administered medications for this encounter. Current Outpatient Medications Medication Sig Dispense Refill norgestimate-ethinyl estradiol (MONO-LINYAH) 0.25-35 mg-mcg per tablet Take 1 tablet by mouth daily . Ht 5' 5 (1.651 m) Wt 83.9 kg (185 lb) LMP 09/25/2018 BMI 30.79 kg/m Review of Systems Positive for right pelvic pain. Negative for fever, chills, nausea, vomiting, diarrhea, headaches, visual changes, skin changes, difficulty with ambulation. Objective: Physical Exam She looks very uncomfortable. HEENT is within normal limits she wears glasses. Neck is supple without thyromegaly. Breasts are without masses or lesions. She has no lymphadenopathy. Heart shows regular rate and rhythm without murmurs. Chest is clear. Abdomen soft and nontender. Back shows no costovertebral angle tenderness. Extremities are without edema. External genitalia within normal limits vagina is well supported there is no cervical motion tenderness uterus is small and anteverted she has a very tender fullness on the right, which is consistent with her ultrasound findings of a simple right adnexal cyst. Orestes Harrell MD documented in this encounter INTERVAL HISTORY AND PHYSICAL Patient Name: Sherita Trevino Admit Date: MR #: [id number] : 1990 The H&P has been reviewed and the patient has been examined. I concur with the findings of the H&P. There are no significant changes. It is appropriate to proceed with the planned procedure. Orestes Harrell MD 09/15/2019 8:48 AM PREOPERATIVE HISTORY AND PHYSICAL Chief complaint: Pelvic pain and dysmenorrhea. Ultrasound suggestive of adenomyosis. History of present illness: The patient is a 29-year-old para 2-0-1-2 female. Her last menstrual period was August 152019. She came to my office with complaints of ongoing central pelvic pain worse before during and after her menses. She had a prior laparoscopy for an excision of a paratubal cyst. No endometriosis was seen at that time. Ultrasound was consistent with adenomyosis. And on exam she had a first to second-degree cystocele. She wishes to proceed with a hysterectomy. She understands that having hysterectomy means no more children, also no more periods. She understands the risks benefits and alternatives. And she strongly desires to proceed. She gives full informed consent. In addition to the above complaints she also has painful menses and painful sex. In the past she actually has tried multiple control pills and they did not help her with any of her problems. Past medical history: Chronic illnesses: None. Allergies: Penicillin. Surgeries: Tonsillectomy and adenoidectomy. Laparoscopic excision of a 4 cm right paratubal cyst in 2018. Medications: Multivitamins. Social history: She is . She is a homemaker. She denies use of alcohol cigarettes or illicit drugs. Family history: Positive for diabetes in her father. Positive for hypertension in her mother and father. Positive for stroke in her maternal grandfather. Positive for thyroid cancer in a maternal grandmother. Positive for breast cancer. Negative for bleeding disorders. Obstetric history: In 2012 at 35 weeks gestation she had a vaginal delivery of a 7 pound 7 ounce male. In 2014 at 40 weeks gestation she had a vaginal delivery of a 7 pound female. In 2009 she had a missed at 10 weeks gestation. Gynecologic history: Menarche at age 16. Cycles are regular. 6 days of bleeding. Heavy bleeding. Associated with severe dysmenorrhea and clotting. Negative history of pelvic inflammatory disease. Review of systems: Negative for recent known exposure to COVID-19. Negative for fever, chills, body aches, cough, sneezing, nausea, vomiting, diarrhea, constipation, vaginal discharge, dysuria, hematuria. Physical examination: She is well-appearing and in no acute distress. 5 feet 5 inches tall. 207 pounds. Pulse of 80. Respiratory rate 16. Temperature 98.9. Blood pressure 120/80. Head eyes ears nose and throat are within normal limits. Neck is supple. Chest is clear. Heart shows regular rate and rhythm. Breasts are without lesions. She has no adenopathy. She has no costovertebral angle tenderness. External genitalia within normal limits. Vagina is well supported except for a first to second-degree cystocele. She has no cervical motion tenderness. Uterus anteverted small and tender at the fundus. She has no adnexal masses or tenderness. Extremities show no edema. Assessment and plan: This is a 29-year-old female with ongoing pelvic pain dysmenorrhea and mild genital prolapse. She has had laparoscopic treatment in the past for an ovarian cyst. Which turned out to be benign. She has an ultrasound suggestive of adenomyosis. The plan is to proceed with a laparoscopically assisted vaginal hysterectomy to which the patient gives full informed consent. documented in this encounter Jackelyn Flynn RN - 09/15/2019 11:11 AM EDTJackelyn Flynn RN - 09/15/2019 10:56 AM EDT Nursing Notes (unrecognized section and content) Report given to Starla in OBGYN Dept Omer catheter patent nd draining clear yellow urine documented in this encounter Plan of Bruce - Shweta Alvarez RN - 09/16/2019 4:23 AM EDTPlan of Bruce - Fartun Banks RN - 09/16/2019 1:08 AM EDTBrief Op Note - Orestes Harrell MD - 09/15/2019 10:16 AM EDT Miscellaneous Notes (unrecog nized section and content) Pts pain well controlled and teaching about oral pain medications were reviewed. reviewed Brief Post Operative Note Patient Name: Sherita Trevino : 1990 (29 y.o.) Date of Service: 09/15/2019 CSN: [id number] Procedure(s): HYSTERECTOMY VAGINAL Pre-Operative Diagnoses: * PELVIC PAIN, ADENOMYOSIS,GENITAL PROLAPSE Post-Operative Diagnoses: * SAME Surgeon(s) and Role: * Orestes Harrell MD - Primary Anesthesiologist: Simba Reid MD Dean: Tati Castaneda RN Scrub Person: Mae Begum LPN; Jackelyn Alvarenga RN ORA FLOAT: Laverne Monroy Operative findings: FIRST DEGREE UTERINE PROLAPSE Intra and immediate post-operative complications: SAME Type of anesthesia used: General Estimated blood loss: 50 mL Estimated urine output: 100 mL Specimen(s): ID Type Source Tests Collected by Time Destination A : Excision/Resection Uterus & Cervix TISSUE EXAM Orestes Harrell MD 09/15/2019 [id number] Implant(s): * No implants in log * Drain(s): * No LDAs found * Wound(s): Wound 09/15/19 Surgical Wound Vagina (Active) Orestes Harrell MD 09/15/2019 10:16 AM documented in this encounter Care Teams (unrecognized sec tion and content) [employer]ulatory [employer] Relationship Specialty Start Date End Date Katerina Monreal, SENIOR INTEGRATION DEVELOPER [place] [address] PCP - General Certified Nurse Practitioner 04/30/22 [employer]ors [employer] Regulatory Officers Relationship Specialty Start Date End Date Katerina Monreal [facility] [place] [address] PCP - General Certified Nurse Practitioner 04/30/22 Inspectors And Regulatory Officers Relationship Specialty Start Date End Date Katerina Monreal, SENIOR INTEGRATION DEVELOPER [place] [address] PCP - General Certified Nurse Practitioner 04/30/22 Inspectors And Regulatory Officers Relationship Specialty Start Date End Date Katerina Monreal, SENIOR INTEGRATION DEVELOPER [place] [address] PCP - General Certified Nurse Practitioner 04/30/22 Inspectors And Regulatory Officers Relationship Specialty Start Date End Date Katerina Monreal SENIOR INTEGRATION DEVELOPER [place] [address] PCP - General Certified Nurse Practitioner 04/30/22 Inspectors And Regulatory Officers Relationship Specialty Start Date End Date Katerina Monreal [facility] [place] [address] PCP - General Certified Nurse Practitioner 04/30/22 Ordered Prescriptions (unrec ognized section and content) Prescription Sig Dispensed Refills Start Date End Da te meclizine (ANTIVERT) 25 MG tablet Take 1 tablet by mouth 3 times daily as needed for Dizziness 15 tablet 0 07/28/2022 ibuprofen (ADVIL;MOTRIN) 600 MG tablet Take 1 tablet by mouth every 8 hours as needed for Pain 20 tablet 0 07/28/2022 guaiFENesin (MUCINEX) 600 MG extended release tablet Take 1 tablet by mouth 2 times daily as needed for Congestion 10 tablet 0 07/28/2022 08/12/2022 Scheduled Active and Recently Administ ered Medications (unrecognized section and content) Medication Order 07/26/2022 07/27/2022 07/28/2022 0.9 % sodium chloride bolus (COMPLETED) 1,000 mL (10.8 mL/kg), IntraVENous, at 983.6 mL/hr, Administer over 61 Minutes, ONCE, On 07/27/22 at 2330, For 1 dose 2334 (New Bag - Provider: Priscilla Cole, RN) 0049 (Stopped - Provider: Shannon Tay, POWER) meclizine (ANTIVERT) tablet 25 mg (COMPLETED) 25 mg, Oral, ONCE, 1 dose, On 07/28/22 at 0000 2353 (Given - Provider: Miguel Carranza, RN) FOR RECORDS PERTAINING TO PATIENTS WHO ARE OR HAVE BEEN ENROLLED IN A CHEMICAL DEPENDENCY/SUBSTANCEABUSE PROGRAM, SOME INFORMATION MAY BE OMITTED. This clinical summary was aggregated from multiple sources. Caution should be exercised in using it in the provision of clinical care. This summary normalizes information from multiple sources, and as a consequence, information in this document may materially change the coding, format and clinical context of patient data. In addition, data may be omitted in some cases. CLINICAL DECISIONS SHOULD BE BASED ON THE PRIMARY CLINICAL RECORDS. [employer] provides no warranty or guarantee of the accuracy or completeness of information in this document.
[2023-05-11 09:08] LABS: Age Gdln ACOG Testing Note (.); HPV Aptima Negative (Negative); IGP, Aptima HPV, rfx 16/18,45 Note (.)
== END 2023-05-07 20:40 | disposition home or self-care (01) ==
LOC: LAB 20:39
PROVIDERS: Visit Provider Obstetrics & Gynecology
DX: Z01.419 Encounter for gynecological examination (general) (routine) without abnormal findings (principal)
CPT/HCPCS: 87624; G0145

== ENCOUNTER 2023-05-17 12:08 | Outpatient (OUT) | payer BC, SELFPAY ==
--- OUTSIDE RECORDS SUMMARY | 2023-05-17 12:12 | XMS_ITS | CCD ---
Author Name Unknown Address [address] [facility] [address] [place] [address] Organization [facility] Care Team Providers Care Animal Husbandry Professor Name Role Phone Sharri, Orestes F Unavailable Unavailable Sharri, Orestes F Unavailable Unavailable No, Physician Primary Care Provider Unavailabl e No, Physician Primary Care Provider Unavailabl e SHARRI, ORESTES F. S. Admitting Unavailabl e NO, PHYSICIAN Primary Care Unavailable NO, PHYSICIAN Primary Care Unavailable SHARRI, ORESTES F. S. Attending Unavailabl KIMMIE Hamlin Attending Unavailable NO, PHYSICIAN Primary Care Unavailable Seymour [employer]ORER [employer] - DIRECTOR GLOBAL, Katerina Gallego Primary Care Provider Charlie Cartagena Attending Unavailable Charlie Cartagena Admitting Unavailable NO FAMILY, PHYSICIAN Primary Care Unavailable Jocelin [employer]OR[employer] - DIRECTOR GLOBAL, Katerina Gallego Primary Care Provider KATERINA MONREAL Primary Care Unavailable BATSHEVA FRANCO Attending Unavailable JOCELIN, KATERINA M Referring Unavailable JOCELIN, [...] Unavailable JOCELIN, KATERINA M Primary Care Unavailable KODI FORTUNE Attending Unavailable KODI FORTUNE Attending Unavailable Allergies Allergy Classification Reported Allergen(s) Allergy Type Date of Onset Reaction(s) Facility (11 sources) Penicillins; Translations: [PENICILLINS] Propensity to adverse reactions to drug 01-19-2015 [facility] Medications Current Medications Medication Drug Class(es) Dates [...] Weinstein Jr., MD 09/03/22 Final result Normal [facility] Cult,Urineon 08-21-2022 Cult,Urine Specimen Description .CLEAN CATCH URINE Culture NO GROWTH Report Status FINAL 08/21/2022 Normal [facility] Comment on above: Performed By: #### U #### [id number] [place], [place] [phone] Sheet Catcher: Wang Peralta MD [facility] [address] [place] [address] Sheet Catcher: Dustin Chang MD XR ABDOMEN (KUB) (SINGLE [...] tract calcifications are seen. Interpreted by: Gene Malave DO Signed by: Gene Malave DO 08/20/22 Final result Normal [facility] Nonobstructive gas pattern. Prominent colonic fecal material is present. No urinary tract calcifications are seen. [facility] EXAM: XR ABDOMEN (KU B) (SINGLE [...] calcifications are seen. Osseous structures appear intact. [facility] Gene Malave DO - 08/20/2022 EXAM: [...] present. No urinary tract calcifications are seen. [employer] Phone: Radiology Study observation (narrative) [employer] Phone: XR ABDOMEN (KUB) (SINGLE AP VIEW)Ordered By: Gene Malave on 08-20-2022 [employer] Phone: CBC with Diffon 07-28-2022 Abs. Basophil 0.00 k/uL Normal 0.0-0.2 [facility] Comment on above: Performed By: #### C P, CDP ####[facility] [id number] [place], [place] [phone] Director: Dustin Chang MD Abs.Neutrophil (Seg) 5.60 k/uL Normal 2.5-7.0 [facility] Comment on above: Performed By: #### C P, CDP ####[facility] [address] [place] [address] Lab Director: Dustin Chang MD Auto Diff Performed YES Normal [facility] Comment on above: Performed By: #### C P, CDP ####[facility] [id number] [place] [place] [address] Lab Director: Dustin Chang MD Basophils/100 WBC (Bld) 0 % Normal 0-2 [facility] Comment on above: Performed By: #### C P, CDP ####[facility] [id number] [place] [address] Lab Director: Dustin Chang MD Eosinophils (Bld) [#/Vol] 0.30 10*3/uL Normal 0.0-0.4 [facility] Comment on above: Performed By: #### C P, CDP ####[facility] [id number] [place], [place] [phone] Director: Dustin Chang MD Eosinophils/100 WBC (Bld) 3 % Normal 0-5 [facility] Comment on above: Performed By: #### C P, CDP ####[facility] [address] [place] [address] Lab Director: Dustin Chang MD Erythrocyte distribution width (RBC) [Ratio] 12.3 % Normal 12.1-15.2 [facility] Comment on above: Performed By: #### C P, CDP ####[facility] [address] [place] [address] Lab Director: Dustin Chang MD Hematocrit (Bld) [Volume fraction] 37.2 % Normal 36-46 [facility] Comment on above: Performed By: #### C P, CDP ####[facility] [id number] [place] [address] Lab Director: Dustin Chang MD Hemoglobin (Bld) [Mass/Vol] 12.7 g/dL Normal 12.0-16.0 [facility] Comment on above: Performed By: #### C P, CDP ####[facility] [address] [place] [address] Lab Director: Dustin Chang MD Lymphocytes (Bld) [#/Vol] 2.40 10*3/uL Normal 1.0-4.8 [facility] Comment on above: Performed By: #### C P, CDP ####[facility] [id number] [place] [address] Lab Director: Dustin Chang MD Lymphocytes/100 WBC (Bld) 27 % Normal 15-40 [facility] Comment on above: Performed By: #### C P, CDP ####[facility] [address] [facility] [place] [address] Lab Director: Dustin Chang MD MCH (RBC) [Entitic mass] 29.3 pg Normal 26-34 [facility] Comment on above: Performed By: #### C P, CDP ####[facility] [address] [place] [address] Lab Director: Dustin Chang MD MCHC (RBC) [Mass/Vol] 34.3 g/dL Normal 31-37 [facility] Comment on above: Performed By: #### C P, CDP ####[facility] [address] [place] [address] Lab Director: Dustin Chang MD MCV (RBC) [Entitic vol] 85.6 fL Normal 80-100 [facility] Comment on above: Performed By: #### C P, CDP ####[facility] [address] [place], [place] [phone] Director: Dustin Chang MD Monocytes (Bld) [#/Vol] 0.60 10*3/uL Normal 0.0-1.0 [facility] Comment on above: Performed By: #### C P, CDP ####[facility] [address] [place], [place] [phone] Director: Dustin Chang MD Monocytes/100 WBC (Bld) 7 % Normal 4-8 [facility] Comment on above: Performed By: #### C P, CDP ####[facility] [address] [place], [place] [phone] Director: Dustin Chang MD Neutrophil (Seg) 63 % Normal 47-75 [facility] Comment on above: Performed By: #### C P, CDP ####[facility] [address] [place] [address] Lab Director: Dustin Chang MD Platelets (Bld) [#/Vol] 307 10*3/uL Normal 140-450 [facility] Comment on above: Performed By: #### C P, CDP ####[facility] [id number] [place] [address] Lab Director: Dustin Chang MD RBC (Bld) [#/Vol] 4.35 10*6/uL Normal 4.0-5.2 [facility] Comment on above: Performed By: #### C P, CDP ####[facility] [address] [place] [address] Lab Director: Dustin Chang MD WBC (Bld) [#/Vol] 8.9 10*3/uL Normal 3.5-11.0 [facility] Comment on above: Performed By: #### C P, CDP ####[facility] [id number] [place], [place] [phone] Director: Dustin Chang MD Comp Metabolic Profon 2022 Albumin [Mass/Vol] 3.9 g/dL Normal 3.5-5.2 [facility] Comment on above: Performed By: #### C P, CDP ####[facility] [address] [place], [place] [phone] Director: Dustin Chang MD Alkaline Phos 91 U/L Normal 35-104 [facility] Comment on above: Performed By: #### C P, CDP ####[facility] [address] [place], [place] [phone] Director: Dustin Chang MD ALT [Catalytic activity/Vol] 10 U/L Normal 5-33 [facility] Comment on above: Performed By: #### C P, CDP ####[facility] [address] [place] [address] Lab Director: Dustin Chang MD Anion gap [Moles/Vol] 10 mmol/L Normal 9-17 [facility] Comment on above: Performed By: #### C P, CDP ####[facility] [address] [place] [address] Lab Director: Dustin Chang MD AST [Catalytic activity/Vol] 12 U/L Normal <32 [facility] Comment on above: Performed By: #### C P, CDP ####[facility] [address] [place] [address] Lab Director: Dustin Chang MD Bilirubin [Mass/Vol] 0.2 mg/dL Low 0.3-1.2 [facility] Comment on above: Performed By: #### C P, CDP ####[facility] [address] [place] [address] Lab Director: Dustin Chang MD BUN/CRE Ratio 25 High 9-20 [facility] Comment on above: Performed By: #### C P, CDP ####[facility] [address] [place] [address] lab Director: Dustin Chang MD Calcium [Mass/Vol] 9.2 mg/dL Normal 8.6-10.4 [facility] Comment on above: Performed By: #### C P, CDP ####[facility] [address] [facility] [place] [address] Lab Director: Dustin Chang MD Chloride [Moles/Vol] 105 mmol/L Normal 98-107 [facility] Comment on above: Performed By: #### C P, CDP ####[facility] [address] [place] [address] Lab Director: Dustin Chang MD CO2 [Moles/Vol] 23 mmol/L Normal 20-31 [facility] Comment on above: Performed By: #### C P, CDP ####[facility] [address] [place] [address] Lab Director: Dustin Chang MD Creatinine [Mass/Vol] 0.61 mg/dL Normal 0.50-0.90 [facility] Comment on above: Performed By: #### C P, CDP ####[facility] [address] [place] [address] Lab Director: Dustin Chang MD GFR/1.73 sq M.predicted among non-blacks MDRD (S/P/Bld) [Vol rate/Area] mL/min/{1.73_m2} Normal >60 [facility] Comment on above: Result Comment: These results are not intended for use in patients <18 years of age. eGFR results are calculated without a race factor using the 1 CKD-EPI equation. Careful clinical correlation is recommended, particularly when comparing to results calculated using previous equations. The CKD-EPI equation is less accurate in patients with extremes of muscle mass, extra-renal metabolism of creatine, excessive creatine ingestion, or following therapy that affects renal tubular secretion. Performed By: #### C P, CDP ####[facility] [address] [facility] [place] [address] Lab Director: Dustin Chang MD Glucose [Mass/Vol] 106 mg/dL High 70-99 [facility] Comment on above: Performed By: #### C P, CDP ####[facility] [address] [facility], [place] [phone] Director: Dustin Chang MD Potassium [Moles/Vol] 3.7 mmol/L Normal 3.7-5.3 [facility] Comment on above: Performed By: #### C P, CDP ####[facility] [address] [facility], [place] [phone] Director: Dustin Chang MD Protein [Mass/Vol] 6.4 g/dL Normal 6.4-8.3 [facility] Comment on above: Performed By: #### C P, CDP ####[facility] [address] [facility], [place] [phone] Director: Dustin Chang MD Sodium [Moles/Vol] 138 mmol/L Normal 135-144 [facility] Comment on above: Performed By: #### C P, CDP ####[facility] [address] [facility], [place] [phone] Director: Dutsin Chang MD Urea nitrogen [Mass/Vol] 15 mg/dL Normal 6-20 [facility] Comment on above: Performed By: #### C P, CDP ####[facility] [address] [place] [id number] lab Director: Dustin Chang MD XR CHEST [...] Flori Penny MD 07/28/22 Final result Normal [facility] CBC with Auto Differentialon 07-27-2022 Absolute Eos # 0.30 [facility] Absolute Lymph # 2.40 [facility] Absolute Dawson # 0.60 [facility] Basophils (Bld) [#/Vol] 0.00 10*3/uL [facility] Basophils/100 WBC (Bld) 0 % 0 - 2 % [facility] Differential Type YES [facility] Eosinophils/100 WBC (Bld) 3 % 0 - 5 % [facility] Hematocrit (Bld) [Volume fraction] 37.2 % 36 - 46 % [facility] Hemoglobin (Bld) [Mass/Vol] 12.7 g/dL 12.0 - 16.0 g/dL [facility] Lymphocytes/100 WBC (Bld) 27 % 15 - 40 % [facility] MCH (RBC) [Entitic mass] 29.3 pg 26 - 34 pg [facility] MCHC (RBC) [Mass/Vol] 34.3 g/dL 31 - 37 g/dL [facility] MCV (RBC) [Entitic vol] 85.6 fL 80 - 100 fL [facility] Monocytes/100 WBC (Bld) 7 % 4 - 8 % [facility] Platelet distribution width (Bld) [Ratio] 12.3 % 12.1 - 15.2 % [facility] Platelets (Bld) [#/Vol] 307 10*3/uL [facility] RBC (Bld) [#/Vol] 4.35 10*6/uL 4.0 - 5.2 m/uL [facility] Segmented neutrophils/100 WBC (Bld) 63 % 47 - 75 % [facility] Segs Absolute 5.60 [facility] WBC (Bld) [#/Vol] 8.9 10*3/uL [facility] CMPon 07-27-2022 Albumin [Mass/Vol] 3.9 g/dL 3.5 - 5.2 g/dL [facility] ALP [Catalytic activity/Vol] 91 U/L 35 - 104 U/L [facility] ALT [Catalytic activity/Vol] 10 U/L 5 - 33 U/L [facility] Anion gap [Moles/Vol] 10 mmol/L 9 - 17 mmol/L [facility] AST [Catalytic activity/Vol] 12 U/L NINF - 32 U/L [facility] Bilirubin [Mass/Vol] 0.2 mg/dL Low 0.3 - 1.2 mg/dL [facility] Calcium [Mass/Vol] 9.2 mg/dL 8.6 - 10. 4 mg/dL [facility] Chloride [Moles/Vol] 105 mmol/L 98 - 107 mmol/L [facility] CO2 [Moles/Vol] 23 mmol/L 20 - 31 mmol/L [facility] Creatinine [Mass/Vol] 0.61 mg/dL 0.50 - 0.90 mg/dL [facility] GFR/1.73 sq M.predicted MDRD (S/P/Bld) [Vol rate/Area] - PINF [facility] Comment on above: These results are [...] 106 mg/dL High 70 - 99 mg/dL [facility] Interpretation and review of laboratory results Abnormal [facility] Potassium [Moles/Vol] 3.7 mmol/L 3.7 - 5.3 mmol/L [facility] Protein [Mass/Vol] 6.4 g/dL 6.4 - 8.3 g/dL [facility] Sodium [Moles/Vol] 138 mmol/L 135 - 144 mmol/L [facility] Urea nitrogen [Mass/Vol] 15 mg/dL 6 - 20 mg/dL [facility] Urea nitrogen/Creatinine (Bld) [Mass ratio] 25 High 9 - 20 [facility] Cytologyon 06-04-2022 Cytology (NOTE) INTERPRETATION Cervical material, (ThinPrep vial, Imaging-assisted review): Specimen Adequacy: Satisfactory for evaluation. Descriptive Diagnosis: Negative for intraepithelial lesion or malignancy. Biometrics Specialist: LUIS MAYES(ASCP) Electronically Signed Out ey/06/12/2022 Source: A: Cervical material, (ThinPrep vial, Imaging-assisted review) Clinical History Hysterectomy Z01.419 Routine talent acquisition consultant exam without abnormal findings LMP: 12/19/2014 GYNECOLOGIC CYTOLOGY REPORT Patient Name: SHERITA TREVINO [facility] Rec: [id number] Path Number: [id number] [facility] ANATOMIC PATHOLOGY [address] [place] [phone] Normal [facility] Comment on above: Performed By: #### P PPVP #### [facility] [employer] [address] [place] [address] Sheet Catcher: Wang Peralta MD C-Reactive Proteinon 023 CRP [Mass/Vol] 7.6 mg/L High 0.0-5.0 [facility] Comment on above: Performed By: #### C DP, CRP, TSHX, CP, SED, ZFAST #### [facility] [address] [place] [address] Sheet Catcher: Dustin Chang MD #### LIPR, VD25 #### [facility] [address] [place] [address] Sheet Catcher: Wang Peralta MD CRP High sensitivity method [Mass/Vol] 7.6 mg/L High 0.0 - 5.0 mg/L [facility] Interpretation and review of laboratory results Abnormal [facility] CBC with Auto Differentialon 05-01-2022 Absolute Eos # 0.10 [facility] Absolute Lymph # 1.80 [facility] Absolute Dawson # 0.40 [facility] Basophils (Bld) [#/Vol] 0.00 10*3/uL [facility] Basophils/100 WBC (Bld) 0 % 0 - 2 % [facility] Differential Type YES [facility] Eosinophils/100 WBC (Bld) 1 % 0 - 5 % [facility] Hematocrit (Bld) [Volume fraction] 40.2 % 36 - 46 % [facility] Hemoglobin (Bld) [Mass/Vol] 13.3 g/dL 12.0 - 16.0 g/dL [facility] Lymphocytes/100 WBC (Bld) 22 % 15 - 40 % [facility] MCH (RBC) [Entitic mass] 28.5 pg 26 - 34 pg [facility] MCHC (RBC) [Mass/Vol] 33.1 g/dL 31 - 37 g/dL [facility] MCV (RBC) [Entitic vol] 86.2 fL 80 - 100 fL [facility] Monocytes/100 WBC (Bld) 5 % 4 - 8 % [facility] Platelet distribution width (Bld) [Ratio] 13.3 % 12.1 - 15.2 % [facility] Platelets (Bld) [#/Vol] 266 10*3/uL [facility] RBC (Bld) [#/Vol] 4.66 10*6/uL 4.0 - 5.2 m/uL [facility] Segmented neutrophils/100 WBC (Bld) 72 % 47 - 75 % [facility] Segs Absolute 5.90 [facility] WBC (Bld) [#/Vol] 8.3 10*3/uL [facility] CBC with Diffon 05-01-2022 Abs. Basophil 0.00 k/uL Normal 0.0-0.2 [facility] Comment on above: Performed By: #### C DP, CRP, TSHX, CP, SED, ZFAST #### [facility] [address] [place] [address] Sheet Catcher: Dustin Chang MD #### SHAHID25 #### [address] [id number] Sheet Catcher: Wang Peralta MD Abs.Neutrophil (Seg) 5.90 k/uL Normal 2.5-7.0 [facility] Comment on above: Performed By: #### C DP, CRP, TSHX, CP, SED, ZFAST #### [facility] [address] [place], [place] [phone] Sheet Catcher: Dustin Chang MD #### SHAHID25 #### [place] [id number] Sheet Catcher: Wang Peralta MD Auto Diff Performed YES Normal [facility] Comment on above: Performed By: #### C DP, CRP, TSHX, CP, SED, ZFAST #### [facility] [address] [place], [place] [phone] Sheet Catcher: Dustin Chang MD #### SHAHID25 #### [address] [phone] Sheet Catcher: Wang Peralta MD Basophils/100 WBC (Bld) 0 % Normal 0-2 [facility] Comment on above: Performed By: #### C DP, CRP, TSHX, CP, SED, ZFAST #### [facility] [address] [place] [address] Sheet Catcher: Dustin Chang MD #### LIPR, VD25 #### [address] [id number] Sheet Catcher: Wang Peralta MD Eosinophils (Bld) [#/Vol] 0.10 10*3/uL Normal 0.0-0.4 [facility] Comment on above: Performed By: #### C DP, CRP, TSHX, CP, SED, ZFAST #### [facility] [address] [place] [address] Sheet Catcher: Dustin Chang MD #### LIPR, VD25 #### [address] [id number] Sheet Catcher: Wang Peralta MD Eosinophils/100 WBC (Bld) 1 % Normal 0-5 [facility] Comment on above: Performed By: #### C DP, CRP, TSHX, CP, SED, ZFAST #### [facility] [address] [place] [address] Sheet Catcher: Dustin Chang MD #### LIPR, VD25 #### [address] [id number] Sheet Catcher: Wang Peralta MD Erythrocyte distribution width (RBC) [Ratio] 13.3 % Normal 12.1-15.2 [facility] Comment on above: Performed By: #### C DP, CRP, TSHX, CP, SED, ZFAST #### [facility] [address] [place] [address] Sheet Catcher: Dustin Chang MD #### LIPR, VD25 #### [address] [id number] Sheet Catcher: Wang Peralta MD Hematocrit (Bld) [Volume fraction] 40.2 % Normal 36-46 [facility] Comment on above: Performed By: #### C DP, CRP, TSHX, CP, SED, ZFAST #### [facility] [address] [place] [address] Sheet Catcher: Dustin Chang MD #### LIPR, VD25 #### [address] [id number] Sheet Catcher: Wang Peralta MD Hemoglobin (Bld) [Mass/Vol] 13.3 g/dL Normal 12.0-16.0 [facility] Comment on above: Performed By: #### C DP, CRP, TSHX, CP, SED, ZFAST #### [facility] [address] [place] [address] Sheet Catcher: Dustin Chang MD #### VAISHNAVI, VD25 #### [address] [id number] Sheet Catcher: Wang Peralta MD Lymphocytes (Bld) [#/Vol] 1.80 10*3/uL Normal 1.0-4.8 [facility] Comment on above: Performed By: #### C DP, CRP, TSHX, CP, SED, ZFAST #### [facility] [address] [place] [address] Sheet Catcher: Dustin Chang MD #### LIPMaryjane, VD25 #### [address] [address] Sheet Catcher: Wang Peralta MD Lymphocytes/100 WBC (Bld) 22 % Normal 15-40 [facility] Comment on above: Performed By: #### C DP, CRP, TSHX, CP, SED, ZFAST #### [facility] [address] [place] [address] Sheet Catcher: Dustin Chang MD #### VAISHNAVI, VD25 #### [address] [id number] Sheet Catcher: Wang Peralta MD MCH (RBC) [Entitic mass] 28.5 pg Normal 26-34 [facility] Comment on above: Performed By: #### C DP, CRP, TSHX, CP, SED, ZFAST #### [facility] [address] [place], [place] [phone] Sheet Catcher: Dustin Chang MD #### LIPR, VD25 #### [id number] [place], [place] [id number] Sheet Catcher: Wang Peralta MD MCHC (RBC) [Mass/Vol] 33.1 g/dL Normal 31-37 [facility] Comment on above: Performed By: #### C DP, CRP, TSHX, CP, SED, ZFAST #### [facility] [address] [place] [address] Sheet Catcher: Dustin Chang MD #### LIPR, VD25 #### [address] [address] Sheet Catcher: Wang Peralta MD MCV (RBC) [Entitic vol] 86.2 fL Normal 80-100 [facility] Comment on above: Performed By: #### C DP, CRP, TSHX, CP, SED, ZFAST #### [facility] [address] [place], [place] [id number] Sheet Catcher: Dustin Chang MD #### LIPR, VD25 #### [address] [id number] Sheet Catcher: Wang Peralta MD Monocytes (Bld) [#/Vol] 0.40 10*3/uL Normal 0.0-1.0 [facility] Comment on above: Performed By: #### C DP, CRP, TSHX, CP, SED, ZFAST #### [facility] [address] [place], [place] [phone] Sheet Catcher: Dustin Chang MD #### LIPR, VD25 #### [address] [phone] Sheet Catcher: Wang Peralta MD Monocytes/100 WBC (Bld) 5 % Normal 4-8 [facility] Comment on above: Performed By: #### C DP, CRP, TSHX, CP, SED, ZFAST #### [facility] [address] [place] [id number] ( Sheet Catcher: Dustin Chang MD #### LIPR, VD25 #### [place] [id number] Sheet Catcher: Wang Peralta MD Neutrophil (Seg) 72 % Normal 47-75 [facility] Comment on above: Performed By: #### C DP, CRP, TSHX, CP, SED, ZFAST #### [facility] [address] [place] [id number] ( Sheet Catcher: Dustin Chang MD #### LIPR, VD25 #### [place] [address] Sheet Catcher: Wang Peralta MD Platelets (Bld) [#/Vol] 266 10*3/uL Normal 140-450 [facility] Comment on above: Performed By: #### C DP, CRP, TSHX, CP, SED, ZFAST #### [facility] [address] [id number] Sheet Catcher: Dustin Chang MD #### LIPR, VD25 #### [place] [id number] Sheet Catcher: Wang Peralta MD RBC (Bld) [#/Vol] 4.66 10*6/uL Normal 4.0-5.2 [facility] Comment on above: Performed By: #### C DP, CRP, TSHX, CP, SED, ZFAST #### [facility] [address] [place], [place] [id number] Sheet Catcher: Dustin Chang MD #### LIPR, VD25 #### [address] [address] Sheet Catcher: Wang Peralta MD WBC (Bld) [#/Vol] 8.3 10*3/uL Normal 3.5-11.0 [facility] Comment on above: Performed By: #### C DP, CRP, TSHX, CP, SED, ZFAST #### [facility] [address] [place], [place] [id number] Sheet Catcher: Dustin Chang MD #### LIPR, VD25 #### [address] [address] Sheet Catcher: Wang Peralta MD Comp Metabolic Profon 2022 Albumin [Mass/Vol] 4.4 g/dL Normal 3.5-5.2 [facility] Comment on above: Performed By: #### C DP, CRP, TSHX, CP, SED, ZFAST #### [facility] [address] [place], [place] [id number] Sheet Catcher: Dustin Chang MD #### LIPR, VD25 #### [address] [address] Sheet Catcher: Wang Peralta MD Alkaline Phos 83 U/L Normal 35-104 [facility] Comment on above: Performed By: #### C DP, CRP, TSHX, CP, SED, ZFAST #### [facility] [address] [place], [place] [id number] Sheet Catcher: Dustin Chang MD #### LIPR, VD25 #### [address] [address] Sheet Catcher: Wang Peralta MD ALT [Catalytic activity/Vol] 9 U/L Normal 5-33 [facility] Comment on above: Performed By: #### C DP, CRP, TSHX, CP, SED, ZFAST #### [facility] [address] [place], [place] [id number] Sheet Catcher: Dustin Chang MD #### LIPR, VD25 #### [address] [address] Sheet Catcher: Wang Peralta MD Anion gap [Moles/Vol] 10 mmol/L Normal 9-17 [facility] Comment on above: Performed By: #### C DP, CRP, TSHX, CP, SED, ZFAST #### [facility] [address] [place], [place] [id number] Sheet Catcher: Dustin Chang MD #### VAISHNAVI, VD25 #### [address] [address] Sheet Catcher: Wang Peralta MD AST [Catalytic activity/Vol] 10 U/L Normal <32 [facility] Comment on above: Performed By: #### C DP, CRP, TSHX, CP, SED, ZFAST #### [facility] [address] [place], [place] [phone] Sheet Catcher: Dustin Chang MD #### VAISHNAVI, VD25 #### [address] [address] Sheet Catcher: Wang Peralta MD Bilirubin [Mass/Vol] 0.5 mg/dL Normal 0.3-1.2 [facility] Comment on above: Performed By: #### C DP, CRP, TSHX, CP, SED, ZFAST #### [facility] [address] [place], [place] [phone] Sheet Catcher: Dustin Chang MD #### VAISHNAVI, VD25 #### [address] [id number] Sheet Catcher: Wang Peralta MD BUN/CRE Ratio 20 Normal 9-20 [facility] Comment on above: Performed By: #### C DP, CRP, TSHX, CP, SED, ZFAST #### [facility] [address] [place] [address] Sheet Catcher: Dustin Chang MD #### VAISHNAVI VD25 #### [address] [id number] Sheet Catcher: Wang Peralta MD Calcium [Mass/Vol] 9.4 mg/dL Normal 8.6-10.4 [facility] Comment on above: Performed By: #### C DP, CRP, TSHX, CP, SED, ZFAST #### [facility] [address] [place], [place] [phone] Sheet Catcher: Dustin Chang MD #### VAISHNAVI VD25 #### [address] [place] [address] Sheet Catcher: Wang Peralta MD Chloride [Moles/Vol] 104 mmol/L Normal 98-107 [facility] Comment on above: Performed By: #### C DP, CRP, TSHX, CP, SED, ZFAST #### [facility] [address] [place], [place] [phone] Sheet Catcher: Dustin Chang MD #### VAISHNAVI VD25 #### [address] [place] [address] Sheet Catcher: Wang Peralta MD CO2 [Moles/Vol] 25 mmol/L Normal 20-31 [facility] Comment on above: Performed By: #### C DP, CRP, TSHX, CP, SED, ZFAST #### [facility] [address] [place], [place] [phone] Sheet Catcher: Dustin Chang MD #### VAISHNAVI VD25 #### [address] [place], [place] 5783908 Sheet Catcher: Wang Peralta MD Creatinine [Mass/Vol] 0.70 mg/dL Normal 0.50-0.90 [facility] Comment on above: Performed By: #### C DP, CRP, TSHX, CP, SED, ZFAST #### [facility] [address] [place] [address] Sheet Catcher: Dustin Chang MD #### LIPR, VD25 #### [address] [place], [place] [phone] Sheet Catcher: Wang Peralta MD GFR/1.73 sq M.predicted among non-blacks MDRD (S/P/Bld) [Vol rate/Area] mL/min/{1.73_m2} Normal >60 [facility] Comment on above: Result Comment: These results [...] DP, CRP, TSHX, CP, SED, ZFAST #### [facility] [address] [place] [address] Sheet Catcher: Dustin Chang MD #### LIPR, VD25 #### [facility] [employer] [facility] [place], [place] 9001708 Sheet Catcher: Wang Peralta MD Glucose [Mass/Vol] 92 mg/dL Normal 70-99 [facility] Comment on above: Performed By: #### C DP, CRP, TSHX, CP, SED, ZFAST #### [facility] [address] [place] [address] Sheet Catcher: Dustin Chang MD #### LIPR, VD25 #### [address] [id number] Sheet Catcher: Wang Peralta MD Potassium [Moles/Vol] 4.3 mmol/L Normal 3.7-5.3 [facility] Comment on above: Performed By: #### C DP, CRP, TSHX, CP, SED, ZFAST #### [facility] [address] [place], [place] [phone] Sheet Catcher: Dustin Chang MD #### LIPR, VD25 #### [address] [id number] Sheet Catcher: Wang Peralta MD Protein [Mass/Vol] 6.8 g/dL Normal 6.4-8.3 [facility] Comment on above: Performed By: #### C DP, CRP, TSHX, CP, SED, ZFAST #### [facility] [address] [phone] Sheet Catcher: Dustin Chang MD #### LIPR, VD25 #### [address] [phone] Sheet Catcher: Wang Peralta MD Sodium [Moles/Vol] 139 mmol/L Normal 135-144 [facility] Comment on above: Performed By: #### C DP, CRP, TSHX, CP, SED, ZFAST #### [facility] [address] [phone] Sheet Catcher: Dustin Chang MD #### LIPR, VD25 #### [address] [phone] Sheet Catcher: Wang Peralta MD Urea nitrogen [Mass/Vol] 14 mg/dL Normal 6-20 [facility] Comment on above: Performed By: #### C DP, CRP, TSHX, CP, SED, ZFAST #### [facility] [address] [place] [address] Sheet Catcher: Dustin Chang MD #### LIPR, VD25 #### [facility] [address] [place] [address] Sheet Catcher: Wang Peralta MD [facility] Metabolic Pane [facility] 05-01-2022 Albumin [Mass/Vol] 4.4 g/dL 3.5 - 5.2 g/dL [facility] ALP [Catalytic activity/Vol] 83 U/L 35 - 104 U/L [facility] ALT [Catalytic activity/Vol] 9 U/L 5 - 33 U/L [facility] Anion gap [Moles/Vol] 10 mmol/L 9 - 17 mmol/L [facility] AST [Catalytic activity/Vol] 10 U/L NINF - 32 U/L [facility] Bilirubin [Mass/Vol] 0.5 mg/dL 0.3 - 1.2 mg/dL [facility] Calcium [Mass/Vol] 9.4 mg/dL 8.6 - 10. 4 mg/dL [facility] Chloride [Moles/Vol] 104 mmol/L 98 - 107 mmol/L [facility] CO2 [Moles/Vol] 25 mmol/L 20 - 31 mmol/L [facility] Creatinine [Mass/Vol] 0.7 mg/dL 0.50 - 0.90 mg/dL [facility] GFR/1.73 sq M.predicted MDRD (S/P/Bld) [Vol rate/Area] - PINF [facility] Comment on above: These results are [...] [Mass/Vol] 92 mg/dL 70 - 99 mg/dL [facility] Potassium [Moles/Vol] 4.3 mmol/L 3.7 - 5.3 mmol/L [facility] Protein [Mass/Vol] 6.8 g/dL 6.4 - 8.3 g/dL [facility] Sodium [Moles/Vol] 139 mmol/L 135 - 144 mmol/L [facility] Urea nitrogen [Mass/Vol] 14 mg/dL 6 - 20 mg/dL [facility] Urea nitrogen/Creatinine (Bld) [Mass ratio] 20 9 - 20 [facility] Lipid Panelon 05-01-2022 Cholesterol [Mass/Vol] 184 mg/dL NINF - 200 mg/dL [facility] Comment on above: Cholesterol Guidelines: <200 Desirable 200-240 Borderline >240 Undesirable Cholesterol in HDL [Mass/Vol] 54 mg/dL 40 - PINF mg/dL [facility] Comment on above: HDL Guidelines: <40 Undesirable 40-59 Borderline >59 Desirable Cholesterol in LDL [Mass/Vol] 111 mg/dL 0 - 130 mg/dL [facility] Comment on above: LDL Guidelines: <100 Desirable 100-129 Near to/above Desirable 130-159 Borderline >159 Undesirable Direct (measured) LDL and calculated LDL are not interchangeable tests. Cholesterol.total/C holesterol in HDL [Mass ratio] 3.4 {ratio} NINF - 5 [facility] Triglyceride [Mass/Vol] 94 mg/dL NINF - 150 mg/dL [facility] Comment on above: Triglyceride Guidelines: <150 Desirable 150-199 Borderline 200-499 High >499 Very high Based on AHA Guidelines for fasting triglyceride, December 2011. [facility] Lipid Profileon 05-01-2022 Cholesterol [Mass/Vol] 184 mg/dL Normal <200 [facility] Comment on above: Result Comment: Cholesterol Guidelines: <200 Desirable 200-240 Borderline >240 Undesirable Performed By: #### C DP, CRP, TSHX, CP, SED, ZFAST ####[facility] [address] [place] [place] [address] Lab Director: Dustin Chang MD#### LIPR, VD25 ####[facility] [address] [place] [address] Lab Director: Wang Peralta MD Cholesterol in HDL [Mass/Vol] 54 mg/dL Normal >40 [facility] Comment on above: Result Comment: HDL Guidelines: <40 Undesirable 40-59 Borderline >59 Desirable Performed By: #### C DP, CRP, TSHX, CP, SED, ZFAST ####[facility] [address] [place] [address] Lab Director: Dustin Chang MD#### VAISHNAVI VD25 ####[facility] [address] [place] [address] Lab Director: Wang Peralta MD Cholesterol in LDL [Mass/Vol] 111 mg/dL Normal 0-130 [facility] Comment on above: Result Comment: LDL Guidelines: <100 Desirable 100-129 Near to/above Desirable 130-159 Borderline >159 Undesirable Direct (measured) LDL and calculated LDL are not interchangeable tests. Performed By: #### C DP, CRP, TSHX, CP, SED, ZFAST ####[facility] [address] [place], [place] [address])[phone] Director: Dustin Chang MD#### SHAHID25 ####[facility] [address] [place] [address] Lab Director: Wang Peralta MD Cholesterol.total/C holesterol in HDL [Mass ratio] 3.4 {ratio} Normal <5 [facility] Comment on above: Performed By: #### C DP, CRP, TSHX, CP, SED, ZFAST ####[facility] [address] [place] [address] Lab Director: Dustin Chang MD#### VAISHNAVI VD25 ####[facility] [address] [place] [address] Lab Director: Wang Peralta MD Triglyceride [Mass/Vol] 94 mg/dL Normal <150 [facility] Comment on above: Result Comment: Triglyceride Guidelines: <150 Desirable 150-199 Borderline 200-499 High >499 Very high Based on AHA Guidelines for fasting triglyceride, December 2011. Performed By: #### C DP, CRP, TSHX, CP, SED, ZFAST ####[facility] [address] [place] [address] Lab Director: Dustin Chang MD#### LIPR, VD25 ####[facility] [address] [place], [place] [id number] Lab Director: Wang Peralta MD No Panel Informationon 05-01 [facility] Patient Fasting?on 3 Patient Fasting? YES [facility] Patient fasting?on 3 Patient fasting? YES Normal [facility] Comment on above: Performed By: #### C DP, CRP, TSHX, CP, SED, ZFAST #### [facility] [address] [facility] [place] [address] Sheet Catcher: Dustin Chang MD #### VAISHNAVI, VD25 #### [facility] [address] [place], [place] [phone] Sheet Catcher: Wang Peralta MD Sedimentation Rateon 023 Sedimentation Rate 13 mm/Hr Normal 0-20 [facility] Comment on above: Performed By: #### C DP, CRP, TSHX, CP, SED, ZFAST #### [facility] [address] [place] [address] Sheet Catcher: Dustin Chang MD #### LIPR, VD25 #### [address] [place], [place] [phone] Sheet Catcher: Wang Peralta MD ESR (Bld) [Velocity] 13 mm/h [facility] TSH With Reflex Ft4on 2022 TSH Qn 3.51 m[IU]/L [facility] TSH w/reflex to FT4on 2022 Thyroid Stim. Horm. 3.51 uIU/mL Normal 0.30-5.00 [facility] Comment on above: Performed By: #### C DP, CRP, TSHX, CP, SED, ZFAST #### [facility] [address] [place] [address] Sheet Catcher: Dustin Chang MD #### VAISHNAVI VD25 #### [facility] [address] [place], [place] [phone] Sheet Catcher: Wang Peralta MD Vitamin D 25 Hydroxyon 05-01 25-hydroxyvitamin D3 [Mass/Vol] 17.4 ng/mL Low 29.9 - PINF ng/mL [facility] Comment on above: Reference Range: Vitamin D status Range Deficiency <20 ng/mL Mild Deficiency 20-30 ng/mL Sufficiency 30-100 ng/mL Toxicity >100 ng/mL Interpretation and review of laboratory results Abnormal [facility] Vitamin D 25 OHon 05-01-2022 Vitamin D 25 OH 17.4 ng/mL Low >29.9 [facility] Comment on above: Result Comment: Reference Range: Vitamin D status Range Deficiency <20 ng/mL Mild Deficiency 20-30 ng/mL Sufficiency 30-100 ng/mL Toxicity >100 ng/mL Performed By: #### C DP, CRP, TSHX, CP, SED, ZFAST ####[facility] [address] [place] [address] Lab Director: Dustin Chang MD#### VAISHNAVI VD25 ####[employer] [place], [place] 0389[address] Lab Director: Wang Peralta MD Humberto 04-06-2022 L -- ---- Specimen: [id number] Received: 04/06/22 Status: SRIKANTH Santacruzpaige Num: [id number] Spec Type: Surgical Subm Dr: Charlie Cartagena DO Tissues: A Skin-Other than Cyst, tag, debridement or plastic repair (MIDLINE POSTERIOR B Skin-Other than Cyst, tag, debridement or plastic repair (LT ANTERIOR CHEST C Skin-Other than Cyst, tag, debridement or plastic repair (RT CHEEK) Procedures: HE/3, Gross/Micro L4/3 ---- Age/ Patient Sex Location Account Attending Physician ---- Sherita Trevino / [place] [id number] Chalrie Cartagena DO ---- SPEC NUM: [id number] RECD: 04/06/22 STATUS: SRIKANTH MY NUM: [id number] SANJAY: 04/06/[address] [facility] [address]: Charlie Cartagena DO ENTERED: 04/06/22 [facility] DR: Abdirashid [facility] SPEC TYPE: Surgical DEPT: S ORDERED: HE/3, Gross/Micro L4/3 ORDERED: HE/3, Gross/Micro L4/3 Pathological Diagnosis A. Skin, midline [...] ---- Specimen: [id number] Received: 04/06/22 Status: SRIKANTH My Num: [id number] Spec Type: Surgical Subm Dr: Charlie Cartagena DO Tissues: A Skin-Other than Cyst, tag, debridement or plastic repair (MIDLINE POSTERIOR B Skin-Other than Cyst, tag, debridement or plastic repair (LT ANTERIOR CHEST C Skin-Other than Cyst, tag, debridement or plastic repair (RT CHEEK) Procedures: HE/3, Gross/Micro L4/3 ---- Patient: Sherita Trevino [id number] (Continued) ---- Specimen: [id number] Received: 04/06/22 (Continued) Gross Description (Continued) Signed (signature on file) Yinka Black MD 04/09/22 1534 ---- Specimen: [id number] Received: 04/06/22 Status: SRIKANTH Pepe Num: [id number] Spec Type: Surgical Subm Dr: Charlie Cartagena DO Tissues: A Skin-Other than Cyst, tag, debridement or plastic repair (MIDLINE POSTERIOR B Skin-Other than Cyst, tag, debridement or plastic repair (LT ANTERIOR CHEST C Skin-Other than Cyst, tag, debridement or plastic repair (RT CHEEK) Procedures: HE/3, Iman/Nishant L4/3 ---- Patient: Sherita Trevino [id number] (Continued) ---- Specimen: [id number] Received: 04/06/22 (Continued) [...] support the above pathologic diagnosis. CPT Codes 36796?3 ---- ---- Specimen: [id number] Received: 04/06/22 Status: SRIKANTH Pepe Num: [id number] Spec Type: Surgical Subm Dr: Charlie W Murcek,DO Tissues: A Skin- (more content not included)... Normal [facility] Ambulatory Clinical Summaryo n 12-10-2019 Ambulatory Clinical Summary {[id number]}[id number] Normal Rajeev [facility] Medicine Office/Clini c Noteon 12-10-2019 Family Medicine [...] completed Patient Education Gastroesophageal Reflux Disease, Adult, Gaub-lv-Dkcn Problem List/Past Medical History Ongoing BMI 32.0-32.9,adult [...] adult 04/01/2012 Given Other (see comment) Normal [facility] Comment on above: Result Comment: Elec tronically Signed By: Suzanna ARENAS CNP\.br\Date and Time Signed: 12/10/19 09:28 EDT Patient Educationon 12-10-19 20 Patient Education Family Medicine Gastroesophageal Reflux [...] Garlic and onions. ? Spicy foods. ? [place] fruits, such as oranges, jaclyn, or limes. [...] Document Reviewed: 09/21/2011 ExitCare? Patient Information ?2013 [employer]. Normal [facility] Ambulatory Clinical Summaryo n 11-12-2019 Ambulatory Clinical Summary {[id number] Normal [facility] Family Medicine Video Visit - Telehealthon 11-12-2019 Family Medicine Video Visit - Telehealth Chief Complaint 1 mth wt check up- start 2nd month of adipex History of Present Illness This visit was conducted via two-way, real-time interactive video communications from my office using [employer] due to the restrictions of the COVID-19 pandemic. No physical exam was conducted other than those areas of the body visible to telecommunications with the patient located at [facility] [phone], with children in attendance. If it is [...] 32, # 30 tab(s), Refills(s) 0, Pharmacy: [facility], 165, cm, 11/12/19 11:33:00 EDT, Height/Length Dosing, 89, kg, 11/12/19 11:33:00 EDT, Weight Dosing Follow-up With When Contact Information Suzanna ARENAS CNP In 1 month Additional Instructions: wt check Patient Education Gastroesophageal Reflux Disease, Adult, Vmnr-ov-Rhim Problem List/Past Medical History Ongoing BMI 32.0-32.9,adult [...] adult 04/01/2012 Given Other (see comment) Normal [facility] Comment on above: Result Comment: Elec tronically Signed By: Suzanna ARENAS CNP\.br\Date and Time Signed: 11/12/19 11:56 EDT Patient Educationon 11-12-19 20 Patient Education Family Medicine Gastroesophageal Reflux [...] Garlic and onions. ? Spicy foods. ? [place] fruits, such as oranges, jaclyn, or limes. [...] Document Reviewed: 09/21/2011 ExitCare? Patient Information ?2013 [employer]. Normal [facility] Ambulatory Clinical Summaryo n 10-15-2019 Ambulatory Clinical Summary {[id number] [facility]}[id number] Normal [facility] Family Medicine Office/Clini c Noteon 10-15-2019 Family [...] side effects will work on weight loss tuwlauwfzfo10.5 mg daily Counseled patient on medication administration [...] Daily, # 30 cap(s), Refills(s) 4, Pharmacy: [facility], 165, cm, 10/15/19 13:03:00 EDT, Height/Length Measured, 94.2, kg, 10/15/19 13:03:00 EDT, Weight Measured phentermine, 37.5 mg = 1 tab(s), Oral, Daily, Dx: Obesity 30 day supply BMI: 34, # 30 tab(s), Refills(s) 0, Pharmacy: [facility], 165, cm, 10/15/19 13:03:00 EDT, Height/Length Measured, 94.2, kg, 07/30/20 13:03:00 EDT, Weight Measured Follow-up With When Contact Information Suzanna ARENAS [...] acel/tetanus adult 04/01/2012 Given Other (see comment) [facility] Comment on above: Result Comment: Elec [...] and esophagus. TREATMENT Your caregiver may recommend kcaa-cat-iensbrj or prescription medicines to help decrease acid [...] Garlic and onions. ? Spicy foods. ? [place] fruits, such as oranges, jaclyn, or limes. [...] pillows will not help. ? Only take zytn-pwk-wznqlui or prescription medicines for pain, discomfort, or [...] Document Reviewed: 09/21/2011 ExitCare? Patient Information ?2013 [facility]. Normal [facility] CBCon 09-16-2019 Erythrocyte distribution width (RBC) [Entitic vol] 12.6 % 11.6 - 14.8 % [facility] Hematocrit (Bld) [Volume fraction] 33.7 % Low 36 - 46 % [facility] Hemoglobin (Bld) [Mass/Vol] 11.4 g/dL Low 12 - 16 g/dL [facility] Interpretation and review of laboratory results Abnormal [facility] MCH (RBC) [Entitic mass] 28.6 pg 26 - 34 pg [facility] MCHC (RBC) [Mass/Vol] 33.8 g/dL 31 - 37 g/dL [facility] MCV (RBC) [Entitic vol] 84.5 fL 80 - 100 fL [facility] Platelet mean volume (Bld) [Entitic vol] 9.6 fL 9.4 - 12.4 fL [facility] Platelets (Bld) [#/Vol] 260 10*3/uL [facility] RBC (Bld) [#/Vol] 3.99 10*6/uL Low [facility] WBC (Bld) [#/Vol] 11.37 10*3/uL [facility] CBCon 09-15-2019 Erythrocyte distribution width (RBC) [Entitic vol] 12.5 % 11.6 - 14.8 % [facility] Hematocrit (Bld) [Volume fraction] 41.0 % 36 - 46 % [facility] Hemoglobin (Bld) [Mass/Vol] 13.9 g/dL 12 - 16 g/dL [facility] Interpretation and review of laboratory results Normal [facility] MCH (RBC) [Entitic mass] 28.5 pg 26 - 34 pg [facility] MCHC (RBC) [Mass/Vol] 33.9 g/dL 31 - 37 g/dL [facility] MCV (RBC) [Entitic vol] 84.0 fL 80 - 100 fL [facility] Platelet mean volume (Bld) [Entitic vol] 9.5 fL 9.4 - 12.4 fL [facility] Platelets (Bld) [#/Vol] 301 10*3/uL [facility] RBC (Bld) [#/Vol] 4.88 10*6/uL [facility] WBC (Bld) [#/Vol] 8.58 10*3/uL [facility] Comprehensive Metabolic Pane humberto 09-15-2019 Albumin [Mass/Vol] 4.0 g/dL 3.2 - 5.2 g/dL [facility] ALP [Catalytic activity/Vol] 87 U/L 40 - 140 U/L [facility] ALT [Catalytic activity/Vol] 32 U/L 14 - 65 U/L [facility] Anion gap [Moles/Vol] 11 mmol/L 10 - 20 mmol/L [facility] AST [Catalytic activity/Vol] 12 U/L 0 - 45 U/L [facility] Bilirubin [Mass/Vol] 0.2 mg/dL 0 - 1.3 mg/dL [facility] Calcium [Mass/Vol] 9.3 mg/dL 8.4 - 10. 2 mg/dL [facility] Chloride [Moles/Vol] 110 mmol/L High 98 - 108 mmol/L [facility] Creatinine [Mass/Vol] 0.68 mg/dL 0.40 - 1.10 [facility] GFR/1.73 sq M predicted among non-blacks MDRD (S/P/Bld) [Vol rate/Area] The eGFR should be used for monitoring renal function only and not for medication dosing. [facility] GFR/1.73 sq M.predicted CKD-EPI (S/P/Bld) [Vol rate/Area] 119 >=60 mL/min/1.73 m2 [facility] Glucose [Mass/Vol] 91 mg/dL 65 - 99 mg/dL [facility] HCO3 [Moles/Vol] 22 mmol/L 21 - 32 mmol/L [facility] Interpretation and review of laboratory results Abnormal [facility] Potassium [Moles/Vol] 4.3 mmol/L 3.5 - 5.1 mmol/L [facility] Protein [Mass/Vol] 7.7 g/dL 6 - 8 g/dL [facility] Sodium [Moles/Vol] 139 mmol/L 135 - 145 mmol/L [facility] Urea nitrogen [Mass/Vol] 16 mg/dL 8 - 25 mg/dL [facility] Urea nitrogen/Creatinine [Mass ratio] 23.5 mg/mg High [facility] Type and Screenon 09-15-2019 ABO and Rh group Nom (Bld) O Negative [facility] Blood group antibody screen Ql Negative [facility] Specimen Expires 09/18/2019 23:59 EST [facility] URINALYSISon 09-15-2019 Bacteria Auto Ql (U) Rare Abnormal None Seen /hpf [facility] Bilirubin Ql (U) Negative [facility] Clarity Refractometry automated (U) Clear Clear [facility] Color (U) Yellow Colorless, Yellow [facility] Epithelial cells.squamous Auto (Urine sed) [#/Area] 5 High [facility] Glucose Auto test strip (U) [Mass/Vol] Negative Negative mg/dL [facility] Hemoglobin Auto test strip Ql (U) Negative Negative [facility] Interpretation and review of laboratory results Abnormal [facility] Ketones (U) [Mass/Vol] Negative Negative mg/dL [facility] Leukocyte esterase Auto test strip Ql (U) Moderate Abnormal Negative [facility] Mucus Auto (Urine sed) [#/Area] Rare None Seen, Rare /lpf [facility] Nitrite Auto test strip Ql (U) Negative Negative [facility] pH (U) 5.5 [pH] [facility] Protein (U) [Mass/Vol] Negative Negative mg/dL [facility] RBC Auto (Urine sed) [#/Area] 3 [facility] Specific gravity (U) [Rel density] >=1.030 High [facility] Urobilinogen (U) [Mass/Vol] <2.0 <2.0 mg/dL [facility] WBC Auto (Urine sed) [#/Area] 15 High [facility] Microscopic examination is performed on all urinalysis samples and only positive findings are reported. The test for blood on the chemical analytic portion of urinalysis may also be positive due to hemoglobinuria and myoglobinuria and if red blood cells are present they are quantified by microscopic examination. [facility] hCG, Serum, Qualitativeon Beta HCG ( test) Ql Negative Negative [facility] Interpretation and review of laboratory results Normal [facility] Negative: The result is less than or equal to 5 mIU/mL of HCG. [facility] SCAN OTHER ORDERSon 09-14-19 20 Ordered by an unspecified provider. [facility] ABORH VERIFICATIONon 019 ABO and Rh group Nom (Bld) O Negative [facility] ABO and Rh group Nom (Bld) ABO/Rh Verification [facility] Patient's ABO/Rh is verified. [facility] CBC WITH AUTO DIFFERENTIALon 10-10-2018 Basophils (Bld) [#/Vol] 0.03 10*3/uL [facility] Basophils/100 WBC (Bld) 0.4 % [facility] Eosinophils (Bld) [#/Vol] 0.20 10*3/uL [facility] Eosinophils/100 WBC (Bld) 2.6 % [facility] Erythrocyte distribution width (RBC) [Entitic vol] 12.3 % 11.6 - 14.8 % [facility] Hematocrit (Bld) [Volume fraction] 37.7 % 36 - 46 % [facility] Hemoglobin (Bld) [Mass/Vol] 12.9 g/dL 12 - 16 g/dL [facility] Immature granulocytes (Bld) [#/Vol] 0.01 10*3/uL [facility] Immature granulocytes/100 WBC (Bld) 0.10 % [facility] Comment on above: The IG parameter is the percentage of metamyelocytes, myelocytes, and promyelocytes. Lymphocytes (Bld) [#/Vol] 1.94 10*3/uL [facility] Lymphocytes/100 WBC (Bld) 25.4 % [facility] MCH (RBC) [Entitic mass] 29.1 pg 26 - 34 pg [facility] MCHC (RBC) [Mass/Vol] 34.2 g/dL 31 - 37 g/dL [facility] MCV (RBC) [Entitic vol] 84.9 fL 80 - 100 fL [facility] Monocytes (Bld) [#/Vol] 0.49 10*3/uL [facility] Monocytes/100 WBC (Bld) 6.4 % [facility] Neutrophils (Bld) [#/Vol] 4.96 10*3/uL [facility] Neutrophils/100 WBC (Bld) 65.1 % [facility] Platelet mean volume (Bld) [Entitic vol] 9.8 fL 9 - 15.5 fL [facility] Platelets (Bld) [#/Vol] 240 10*3/uL [facility] RBC (Bld) [#/Vol] 4.44 10*6/uL [facility] WBC (Bld) [#/Vol] 7.63 10*3/uL [facility] Comprehensive Metabolic Pane humberto 10-10-2018 Albumin [Mass/Vol] 3.7 g/dL 3.2 - 5.2 g/dL [facility] ALP [Catalytic activity/Vol] 57 U/L 40 - 140 U/L [facility] ALT [Catalytic activity/Vol] 27 U/L 14 - 65 U/L [facility] Anion gap [Moles/Vol] 13 mmol/L 10 - 20 mmol/L [facility] AST [Catalytic activity/Vol] 15 U/L 0 - 45 U/L [facility] Bilirubin [Mass/Vol] 0.3 mg/dL 0 - 1.3 mg/dL [facility] Calcium [Mass/Vol] 8.6 mg/dL 8.4 - 10. 2 mg/dL [facility] Chloride [Moles/Vol] 109 mmol/L High 98 - 108 mmol/L [facility] Creatinine [Mass/Vol] 0.71 mg/dL 0.4 - 1.1 mg/dL [facility] GFR/1.73 sq M predicted among non-blacks MDRD (S/P/Bld) [Vol rate/Area] The eGFR should be used for monitoring renal function only and not for medication dosing. [facility] GFR/1.73 sq M.predicted CKD-EPI (S/P/Bld) [Vol rate/Area] 117 >=60 mL/min/1.73 m2 [facility] Glucose [Mass/Vol] 90 mg/dL 65 - 99 mg/dL [facility] HCO3 [Moles/Vol] 24 mmol/L 21 - 32 mmol/L [facility] Interpretation and review of laboratory results Abnormal [facility] Potassium [Moles/Vol] 3.9 mmol/L 3.5 - 5.1 mmol/L [facility] Protein [Mass/Vol] 6.9 g/dL 6 - 8 g/dL [facility]th Sodium [Moles/Vol] 142 mmol/L 135 - 145 mmol/L [facility] Urea nitrogen [Mass/Vol] 10 mg/dL 8 - 25 mg/dL [facility] Urea nitrogen/Creatinine [Mass ratio] 14.1 mg/mg [facility] Type and Screenon 10-10-2018 ABO and Rh group Nom (Bld) O Negative [facility] Blood group antibody screen Ql Negative [facility] Specimen Expires 10/13/2018 23:59 EST [facility] URINALYSISon 10-10-2018 Bacteria Auto Ql (U) Many Abnormal None Seen /hpf [facility] Bilirubin Ql (U) Negative Negative [facility] th Clarity Refractometry automated (U) Cloudy Abnormal Clear [facility] Color (U) Yellow Colorless, Yellow [facility] Epithelial cells.squamous Auto (Urine sed) [#/Area] 10 High [facility] Glucose Auto test strip (U) [Mass/Vol] Negative Negative mg/dL [facility] Hemoglobin Auto test strip Ql (U) Negative Negative [facility] Interpretation and review of laboratory results Abnormal [facility] Ketones (U) [Mass/Vol] Negative Negative mg/dL [facility] Leukocyte esterase Auto test strip Ql (U) Moderate Abnormal Negative [facility] Mucus Auto (Urine sed) [#/Area] Few Abnormal None Seen, Rare /lpf [facility] Nitrite Auto test strip Ql (U) Negative Negative [facility] pH (U) 5.5 [pH] [facility] Protein (U) [Mass/Vol] Negative Negative mg/dL [facility] Specific gravity (U) [Rel density] 1.025 [facility] Urobilinogen (U) [Mass/Vol] <2.0 <2.0 mg/dL [facility] WBC Auto (Urine sed) [#/Area] 8 High [facility] Microscopic examination is performed on all urinalysis samples and only positive findings are reported. The test for blood on the chemical analytic portion of urinalysis may also be positive due to hemoglobinuria and myoglobinuria and if red blood cells are present they are quantified by microscopic examination. [facility] hCG, Serum, Qualitativeon Beta HCG ( test) Ql Negative Negative [facility] Interpretation and review of laboratory results Normal [facility] Negative: The result is less than or equal to 5 mIU/mL of HCG. [facility] SCAN OTHER ORDERSon 10-10-19 19 Ordered by an unspecified provider. [facility] GYNon 01-21-2018 CERTIFIED NURSE PRACTITIONER Name: SHERITA TREVINO LSource Thin Prep Cervical/Endocervical- Pap Smear Clinical History None given Specimen Adequacy Satisfactory No transformation zone component identified. Diagnosis Negative for Intraepithelial Lesion or Malignancy. Fungal organisms morphologically consistent with Krista species are present. Electronically Signed By María Elena Ruiz , Screening performed at [facility] (Case signed 01/29/2018) The Papanicolaou smear is a screening tool, and like any screen, has an inherent false negative rate. Interpretation of results should be made in the context of patient history and clinical findings. Normal [facility] Vital Signs Date Time Vital Sign Value Performing Clinician Facility 07-27-2022 23:05-0400 Body height 167.6 cm Batsheva Franco MD Work Phone: [facility] 07-27-2022 23:05-0400 Body mass index (BMI) [Ratio] 32.94 kg/m2 Batsheva Franco MD Work Phone: [facility] 07-27-2022 23:05-0400 Body temperature 98.1 [degF] Batsheva Franco MD Work Phone: [facility] 07-27-2022 23:05-0400 Body weight 92.58 kg Batsheva Franco MD Work Phone: [facility] 07-27-2022 23:05-0400 Diastolic blood pressure 53 mm[Hg] Batsheva Franco MD Work Phone: [facility] 07-27-2022 23:05-0400 Heart rate 94 /min Batsheva Franco MD Work Phone: [facility] 07-27-2022 23:05-0400 Respiratory rate 18 /min Batsheva Franco MD Work Phone: [facility] 07-27-2022 23:05-0400 SaO2% (BldA) [Mass fraction] 99 % Batsheva Franco MD Work Phone: [facility] 07-27-2022 23:05-0400 Systolic blood pressure 124 mm[Hg] Batsheva Franco MD Work Phone: [facility] 09-16-2019 04:15-0400 Body Temperature 98.91 [degF] Orestes Harrell [facility] 09-16-2019 04:15-0400 BP Diastolic 70 mm[Hg] Orestes Harrell [facility] 09-16-2019 04:15-0400 BP Systolic 109 mm[Hg] Orestes Harrell [facility] 09-16-2019 04:15-0400 Pulse (Heart Rate) 88 /min Orestes Harrell [facility] 09-16-2019 04:15-0400 Pulse Oximetry 99 % Orestesmeet Harrell [facility] 09-16-2019 04:15-0400 Respiratory Rate 16 /min [facility] 09-15-2019 07:42-0400 BMI (Body Mass Index) 32.28 kg/m2 [facility] 09-15-2019 07:42-0400 Body weight 90.72 kg [facility] 09-15-2019 07:42-0400 Height 167.6 cm [facility] 10-10-2018 10:00-0400 Body Temperature 98.01 [degF] [facility] 10-10-2018 10:00-0400 BP Diastolic 73 mm[Hg] [facility] 10-10-2018 10:00-0400 BP Systolic 101 mm[Hg] [facility] 10-10-2018 10:00-0400 Pulse (Heart Rate) 83 /min [facility] 10-10-2018 10:00-0400 Pulse Oximetry 99 % [facility] 10-10-2018 10:00-0400 Respiratory Rate 16 /min [facility] 10-10-2018 06:12-0400 BMI (Body Mass Index) 30.79 kg/m2 [facility] 10-10-2018 06:12-0400 Body weight 83.92 kg [facility] 10-10-2018 06:12-0400 Height 165.1 cm [facility] Encounters Encounter Date Encounter Type Care Provider Facility Start: 05-07-2023 End: 05-07-2023 ambulatory KODI DEVIKA Not Available Start: 04-08-2023 End: 04-08-2023 ambulatory KODI DEVIKA Not Available Start: 09-03-2022 End: 09-06-2022 ambulatory KATERINA MONREAL [facility] Start: 08-20-2022 End: 08-23-2022 ambulatory KATERINA MONREAL [facility] Start: 08-20-2022 End: 08-20-2022 Subsequent hospital visit by physician Katerina Monreal APRN - DAGO Work Phone: [facility] Comment on above: Burning with urinati on; Dysuria; Family history of kidney stones; Acute right flank pain Start: 08-20-2022 End: 08-22-2022 Subsequent hospital visit by physician Dona Zeng [facility] Rad[facility] Comment on above: Burning with urinati on; Dysuria; Family history of kidney stones; Acute right flank pain Start: 07-28-2022 Emergency department patient visit [facility] Start: 07-27-2022 End: 07-28-2022 Emergency department patient visit Batsheva Franco MD Work Phone: [facility] ED Comment on above: Benign paroxysmal po sitional vertigo, unspecified laterality (Primary Dx); Dehydration; Pleuritic chest pain Start: 06-04-2022 End: 06-05-2022 ambulatory [facility] Start: 06-04-2022 Encounter for gynecological examination (general) (routine) without abnormal findings [facility] Start: 06-04-2022 End: 06-04-2022 Patient encounter procedure [facility] BELIA Olivares CNP Work Phone: [facility] Start: 06-04-2022 End: 06-04-2022 Subsequent hospital visit by physician Katerina Olivares CNP Work Phone: [facility] Comment on above: Well woman exam with routine gynecological exam Start: 05-01-2022 End: 05-02-2022 ambulatory [facility] Start: 05-01-2022 End: 05-01-2022 Subsequent hospital visit by physician Katerina Olivares CNP Work Phone: [facility] Comment on above: Screening, anemia, d eficiency, iron; Screening for thyroid disorder; Acute non-recurrent maxillary sinusitis; Frontal headache; Vitamin D deficiency; Screening for diabetes mellitus; Screening cholesterol level Start: 04-06-2022 End: 04-06-2022 ambulatory Charlie Cartagena Facility:[facility] Start: 11-01-2021 ambulatory [facility] Start: 12-22-2020 End: 12-27-2020 ambulatory ORESTES HARRELL [facility] Start: 09-15-2019 End: 09-16-2019 Subsequent hospital visit by physician Orestes Harrell Work Phone: [facility] Labor & Delivery Comment on above: Post-op pain (Primar y Dx) Start: 10-10-2018 End: 10-10-2018 Subsequent hospital visit by physician Orestes Harrell Work Phone: [facility] Periop Comment on above: Post-op pain (Primar y Dx) Start: 01-21-2018 Patient encounter procedure Orestes Harrell Facility:[place] Procedures Date Procedure Procedure Detail Performing Clinician Start: 08-20-2022 Radiologic exam abdo men 1 view Katerina Monreal [employer] Work Phone: Start: 07-27-2022 Comprehensive metabo lic panel Batsheva Franco MD Work Phone: Start: 06-04-2022 Microscopic observat ion [Identifier] in Cervix by Cyto stain Batsheva Franco MD Work Phone: Start: 05-01-2022 Comprehensive metabo lic panel Katerina Monreal [employer] Work Phone: Start: 05-01-2022 Lipid panel Katerina miranda [employer] Work Phone: Start: 05-01-2022 PATIENT FASTING? Katerina Monreal [employer] Work Phone: Start: 09-16-2019 Complete blood count [...] radha Not In System Start: 10-10-2018 Urinalysis Orestes Harrell Work Phone: Start: 10-10-2018 Blood group [...] Screening for malign ant neoplasm [facility] [place] Start: 04-30-2023 Depression Screen Depression Screen [facility] [place] Start: 10-16-2022 Influenza vaccination Flu vacc ine (Season Ended) [facility] Start: 06-04-2022 End: 06-04-2022 Patient encounter procedure 06/04/2022 Office Visit Family Medicine Katerina Monreal, [employer] [address] [place] [address] [facility] Start: 04-01-2022 DTaP/Tdap/Td vaccine (2 - Td or Tdap) DTaP/Tdap/Td vaccine (2 - Td or Tdap) [facility] Start: 10-16-2021 Influenza vaccination Flu vaccine (# 1) [facility] Start: 05-25-2021 Screening for malign ant neoplasm of cervix [facility] Start: 01-21-2021 Screening for malign ant neoplasm of cervix Pap Smear [facility] Start: 09-08-2020 COVID-19 Vaccine (3 - Booster for Moderna series) COVID-19 Vaccine (3 - Booster for Moderna series) [facility] Start: 11-17-2019 Influenza vaccinatio n given Sequential Influenza Vaccine (#1) [facility] Start: 05-25-2012 Screening for malign ant neoplasm of cervix Pap smear [facility] Start: 05-25-2009 Hepatitis C screening Hepatitis C sc reen [facility] Start: 05-25-2006 HIV screening HIV screen [facility] Start: 05-25-1994 History and physical examination, annual for health maintenance Wellness Visit [facility] Start: 05-25-1992 Varicella vaccine (1 of 2 - 2-dose childhood series) Varicella vaccine (1 of 2 - 2-dose childhood series) [facility] Start: 1991 COVID-19 Vaccine (#1) COVID-19 Vacci ne (#1) [facility] Start: 1991 Tetanus vaccination Tetanus: Every 1 0yrs [facility] End: 08-20-2022 Culture, Urine [facility] [employer] Phone: Comment on above: 1 Occurrences starti ng 08/20/2022 until 08/20/2022 End: 06-04-2022 Cytopathology procedure, preparation of smear, genital source PAP Smear Lab Routine Well woman exam with routine gynecological exam 1 Occurrences starting 06/04/2022 until 06/04/2022 [facility] [employer] Work Phone: Comment on above: 1 Occurrences starti ng 06/04/2022 until 06/04/2022 Procedure on tissue specimen [facility] Comment on above: Once for 1 Occurrenc es starting 10/10/2018, 1 completed Release Upon Orderin g for 1 Occurrences starting 09/15/2019, 1 completed End: 07-27-2022 XR CHEST PORTABLE BON Narrative Work Phone: Comment on above: Once for 1 Occurrenc es starting 07/27/2022 until 07/27/2022 Payers Date Payer Category Payer Self-pay 2021 Unknown [id number] 2020 Unknown [id number] 2018 Unknown [id number] 2014 Private Health Insurance [id number] 2014 Private Health Insurance [employer]ET[employer] A ETNA CHOICE POS/POSII/PREMIER CARE/PREMIER CARE PLUS xxxxxxxxxx 2014-Present xxxxxxxxxx [id number] 1991 Unknown [id number] 1991 Unknown [id number] 1991 Unknown [id number] 1991 Unknown [id number] 1991 Unknown [id number] 1991 Unknown [id number] 1991 Unknown [id number] 1991 Unknown [id number] 1991 Unknown [id number] 1991 Unknown [id number] 1991 Unknown [id number] 1991 Unknown [id number] Unknown [id number] Social History Date Type Detail Facility Start: 10-10-2018 End: 08-17-2020 Tobacco smoking status KYIS Never smoker [facility] Start: 10-09-2018 End: 04-30-2022 History SDOH Alcohol Frequency 1 [facility] Sex Assigned At Not on file [facility] Start: 09-15-2019 End: 08-20-2022 Alcohol intake Lifetime non-drinker (finding) [facility] Exposure to SARS-CoV -2 (event) Not sure [facility] Start: 08-17-2020 Tobacco use and exposure Smokeless tobacco non-user [employer] Phone: Start: 04-30-2022 History SDOH Financial 5 [employer] Phone: Start: 04-30-2022 History SDOH Transpo rt Non-Med 2 [employer] Phone: Start: 1990 Sex Assigned At Female B ON Narrative Start: 07-28-2022 History SDOH Alcohol Std Drinks 0 [employer] Phone: Evaluation note Note Date & Type Note Facility Evaluation note Diagnosis Screening, anemia, deficiency, iron Screening for iron deficiency anemia Screening for thyroid disorder Acute non-recurrent maxillary sinusitis Frontal headache Headache Vitamin D deficiency Unspecified vitamin D deficiency Screening for diabetes mellitus Screening cholesterol level Screening for lipoid disorders documented in this encounter [employer] Phone: Evaluation note Note Date & Type Note Facility Evaluation note Diagnosis Well woman exam with routine gynecological exam Routine gynecological examination documented in this encounter [employer] Phone: Evaluation note Note Date & Type Note Facility Evaluation note Diagnosis Benign paroxysmal positional vertigo, unspecified laterality- Primary Dehydration Pleuritic chest pain Painful respiration documented in this encounter [facility] [employer] Phone: Evaluation note Note Date & Type Note Facility Evaluation note Diagnosis Burning with urination Dysuria Dysuria Family history of kidney stones Family history of other kidney diseases Acute right flank pain Abdominal pain, unspecified site documented in this encounter [facility] [employer] Phone: Evaluation note Note Date & Type Note Facility Evaluation note Diagnosis Burning with urination Dysuria Dysuria Family history of kidney stones Family history of other kidney diseases Acute right flank pain Abdominal pain, unspecified site documented in this encounter [employer] Phone: Hospital Discharge instructions Attachments Note Date & Type Note Facility Hospital Discharge instructions The following attachments cannot be sent through Care Everywhere.BPPV (Benign Paroxysmal Positional Vertigo) (Macedonian)Chest Pain: Musculoskeletal (Macedonian)documented in this encounter [employer] Phone: Summary Purpose Family History No Family History Records FoundNo Family History Records FoundNo Family History Records FoundNo Family History Records FoundNo Family History Records FoundNo Family History Records FoundNo Family History Records FoundNo Family History Records Found Advance Directives No Advanced Directives Records FoundDocuments on File Type Date Recorded Patient Machine Pecan Picker Expl anation Advance Directives and Livin g Will 10/10/2018 5:47 AM Documents on File Type Date Recorded Patient Machine Pecan Picker Expl anation Advance Directives and Livin g [...] through Care Everywhere. * Hysterectomy: Vaginal: Post-op (Macedonian) documented in this encounter Assessments Diagnosis Post-op pain- Primary Other acute postoperative pain Diagnosis Post-op pain Other acute postoperative pain History of Present Illness * Shweta Alvarez, RN - 09/16/2019 8:32 AM LORI Omer documented in this encounter Additional Source Comments INFORMATION SOURCE (unrecogn ized section and content) DATE CREATED AUTHOR 02/23/2018 [facility] DATE CREATED AUTHOR AUTHOR'S ORGANIZ ATION 01/09/2020 [facility] DATE CREATED AUTHOR AUTHOR'S ORGANIZ ATION 12/26/2020 [facility] DATE CREATED AUTHOR AUTHOR'S ORGANIZ ATION 12/31/2020 [facility] DATE CREATED AUTHOR AUTHOR'S ORGANIZ ATION 11/08/2021 [facility] DATE CREATED AUTHOR AUTHOR'S ORGANIZ ATION 07/27/2022 [facility] DATE CREATED AUTHOR AUTHOR'S ORGANIZ ATION [facility] DATE CREATED AUTHOR AUTHOR'S ORGANIZ ATION 05/08/2023 [facility] EPIC Reason for Visit (unrecogniz [...] Sherita Trevino Admit Date: [id number] MR #: [id number] : 1990 The H&P has been reviewed [...] visit. She had been seen in the [place] emergency room on 09/26 with a normal [...] Name: Sherita Trevino Admit Date: MR #: [id number] : 1990 The H&P has been reviewed [...] urine documented in this encounter Plan of Care - Shweta Alvarez RN - 09/16/2019 4:23 AM EDTPlan of Care - Fartun Banks RN - 09/16/2019 1:08 AM EDTBrief Op Note - Orestes Harrell MD - 09/15/2019 10:16 AM EDT Miscellaneous Notes (unrecog nized section and content) Pts pain well controlled and teaching about oral pain medications were reviewed. reviewed Brief Post Operative Note Patient Name: Sherita Trevino : 1990 (29 y.o.) Date of Service: 09/15/2019 [facility]: [id number] Procedure(s): HYSTERECTOMY VAGINAL Pre-Operative Diagnoses: * PELVIC PAIN, ADENOMYOSIS,GENITAL PROLAPSE Post-Operative Diagnoses: * SAME Surgeon(s) and Role: * Orestes Harrell MD - Primary Anesthesiologist: Simba Reid MD Surgical Device Sales Representative: Tati Castaneda RN Scrub Person: Mae Begum, TRAIN CONTROL TECHNICIAN; Jackelyn Alvarenga RN ORA FLOAT: Laverne Monroy [...] Care Teams (unrecognized sec tion and content) Animal Husbandry Professor Relationship Specialty Start Date End Date Katerina Monreal, [facility] [place] [address] PCP - General Certified Nurse Practitioner 04/30/22 Animal Husbandry Professor Relationship Specialty Start Date End Date Katerina Monreal [employer] [facility] [place] [address] PCP - General Certified Nurse Practitioner 04/30/22 Animal Husbandry Professor Relationship Specialty Start Date End Date Katerina Monreal, [employer] [facility] [place] [address] PCP - General Certified Nurse Practitioner 04/30/22 Animal Husbandry Professor Relationship Specialty Start Date End Date Katerina Monreal, [employer] [facility] [place] [address] PCP - General Certified Nurse Practitioner 04/30/22 Animal Husbandry Professor Relationship Specialty Start Date End Date Katerina Monreal [employer] [facility] [place] [address] PCP - General Certified Nurse Practitioner 04/30/22 Animal Husbandry Professor Relationship Specialty Start Date End Date Katerina Monreal [employer] [facility] [place] [address] PCP - General Certified Nurse Practitioner 04/30/22 [...] RN) [id number] (Stopped - Provider: Shannon Tay, RN) meclizine (ANTIVERT) tablet 25 mg (COMPLETED) 25 [...] BE BASED ON THE PRIMARY CLINICAL RECORDS. [employer] provides no warranty or guarantee of the accuracy or completeness of information in this document.
--- NOTE | 2023-05-17 12:54 | ECG_ITS ---
[facility] Test Date: 2023-05-17 Pat Name: SHERITA TREVINO Department: Room: - Gender: Female Director Of Materials: : 1990 Requested By: KODI FORTUNE Order Number: [id number] Reading MD: PALAK PETERS Measurements Intervals [place] Rate: 66 P: 26 NV: 133 QRS: 56 QRSD: 94 T: 7 QT: 376 QTc: 397 Interpretive Statements SINUS RHYTHM No previous ECG available for comparison Electronically Signed On 05-18-2023 7:47:02 EST by PALAK PETERS
== END 2023-05-17 12:09 | disposition home or self-care (01) ==
LOC: PST 12:10
PROVIDERS: Visit Provider Obstetrics & Gynecology
DX: Z01.810 Encounter for preprocedural cardiovascular examination (principal); N83.201 Unspecified ovarian cyst, right side; R10.2 Pelvic and perineal pain
CPT/HCPCS: 93005

== ENCOUNTER 2023-05-24 06:51 | Day surgery (SDC) | payer BC, SELFPAY ==
[2023-05-17 12:59] VITALS: BP 121/72; PULSE 77; RESP 18; TEMP 36.3; O2SAT 98; BMI 34.6
[2023-05-24] VITALS (8 sets, daily range): BP systolic 99–136; BP diastolic 41–76; PULSE 66–93; RESP 14–22; TEMP 36.1–36.5; O2SAT 95–99; BMI 35.1
--- OUTSIDE RECORDS SUMMARY | 2023-05-24 06:54 | XMS_ITS | CCD ---
Author Name Unknown Address [address] [place] [address] Organization [facility] Care Team Providers Care Belt Tender Name Role Phone Unavailable Primary Care Provider LIBORIO Whitmore I Attending LIBORIO Whitmore I Admitting RAYSHAWN Benoit Attending Unavailable Medications Current Medications Medication Drug Class(es) Dates Sig (Normalized) Sig (Original) amoxicillin 80 mg/ml oral suspension (1 source) Penicillin-class Antibacterial Start: 12-19-2022 End: 12-26-2022 take 7 mL by mouth twice daily amoxicillin (Amoxil) 400 mg/5 mL suspension Indications: Dental abscess Take 7 mL (560 mg) by mouth 2 times a day for 7 days. 98 mL 0 12/19/2022 12/26/2022 Active ibuprofen 20 mg/ml oral suspension (1 source) Nonsteroidal Anti-inflammatory Drug Start: 12-19-2022 End: 12-29-2022 take 11 mL by mouth every six hours for pain ibuprofen 100 mg/5 mL suspension Indications: Dental abscess , S/P tooth extraction Take 11 mL (220 mg) by mouth every 6 hours if needed for mild pain (1 - 3) for up to 10 days. 237 mL 0 12/19/2022 12/29/2022 Active Completed/Discontinued Medications Medication Drug Class(es) Dates Sig (Normalized) Sig (Original) diphenhydrAMINE hydrochloride 2.5 mg/ml oral solution (1 source) Histamine-1 Receptor Antagonist Start: 12-19-2022 End: 12-19-2022 diphenhydrAMINE (BENADryl) liquid 22.5 mg 1.7 ml EPINEPHrine 0.01 mg/ml / lidocaine hydrochloride 20 mg/ml cartridge (1 source) Antiarrhythmic, alpha-Adrenergic Agonist, beta-Adrenergic Agonist, Catecholamine, Amide Local Anesthetic Start: 12-19-2022 End: 12-19-2022 lidocaine-epinephri ne (XYLOCAINE W/EPI) 2 %-1:100,000 injection 1.7 mL 1 ml fentaNYL 0.05 mg/ml injection (1 source) Opioid Agonist Start: 12-19-2022 End: 12-19-2022 fentaNYL PF (Sublimaze) injection 34 mcg 2 ml midazolam 5 mg/ml injection (1 source) Benzodiazepine Start: 12-19-2022 End: 12-19-2022 midazolam PF (Versed) injection 4.55 mg Problems Active Problems Problem Classification Problem Date Documented Da te Episodic/Chronic Unclassified (2 sources) Referral; Translations: [Referral] Onset: 12-25-2022 Past or Other Problems Problem Classification Problem Date Documented Da te Episodic/Chronic Disorders of teeth and jaw (8 sources) Dental abscess; Translations: [Periapical abscess without sinus] Onset: 12-19-2022 12-19-2022 Episodic Results Test Name Value Interpretation Reference Range Facil ity ED Note-Physicianon 07-12-19 21 ED Note-Physician [id number] #1.00CD:127 Normal [facility] Screenson 06-28-2020 Screens [id number]#1.00CD:127 Normal [facility] Screens [id number] #1.00CD:127 Normal [facility] Ambulatory Clinical Summaryo n 06-27-2020 Ambulatory Clinical Summary {[id number] Normal [facility] Patient Educationon 06-28-19 21 Patient Education Pediatrics Well Book Trimmer, 18 Months Old Well-child exams are recommended visits with a health care provider to track your child's growth and development at certain ages. This sheet tells you what to expect during this visit. Recommended immunizations ? Hepatitis B vaccine. The third dose of a 3-dose series should be given at age 6?18 months. The third dose should be given at least 16 weeks after the first dose and at least 8 weeks after the second dose. ? Diphtheria and tetanus toxoids and acellular pertussis (DTaP) vaccine. The fourth dose of a 5-dose series should be given at age 15?18 months. The fourth dose may be given 6 months or later after the third dose. ? Haemophilus influenzae type b (Hib) vaccine. Your child may get doses of this vaccine if needed to catch up on missed doses, or if he or she has certain high-risk conditions. ? Pneumococcal conjugate (PCV13) vaccine. Your child may get the final dose of this vaccine at this time if he or she: ? Was given 3 doses before his or her first birthday. ? Is at high risk for certain conditions. ? Is on a delayed vaccine schedule in which the first dose was given at age 7 months or later. ? Inactivated poliovirus vaccine. The third dose of a 4-dose series should be given at age 6?18 months. The third dose should be given at least 4 weeks after the second dose. ? Influenza vaccine (flu shot). Starting at age 6 months, your child should be given the flu shot every year. Children between the ages of 6 months and 8 years who get the flu shot for the first time should get a second dose at least 4 weeks after the first dose. After that, only a single yearly (annual) dose is recommended. ? Your child may get doses of the following vaccines if needed to catch up on missed doses: ? Measles, mumps, and rubella (MMR) vaccine. ? Varicella vaccine. ? Hepatitis A vaccine. A 2-dose series of this vaccine should be given at age 12?23 months. The second dose should be given 6?18 months after the first dose. If your child has received only one dose of the vaccine by age 24 months, he or she should get a second dose 6?18 months after the first dose. ? Meningococcal conjugate vaccine. Children who have certain high-risk conditions, are present during an outbreak, or are traveling to a country with a high rate of meningitis should get this vaccine. Your child may receive vaccines as individual doses or as more than one vaccine together in one shot (combination vaccines). Talk with your child's health care provider about the risks and benefits of combination vaccines. Testing Vision ? Your child's eyes will be assessed for normal structure (anatomy) and function (physiology). Your child may have more vision tests done depending on his or her risk factors. Other tests ? Your child's health care provider will screen your child for growth (developmental) problems and autism spectrum disorder (ASD). ? Your child's health care provider may recommend checking blood pressure or screening for low red blood cell count (anemia), lead poisoning, or tuberculosis (TB). This depends on your child's risk factors. General instructions Parenting tips ? Praise your child's good behavior by giving your child your attention. ? Spend some one-on-one time with your child daily. Vary activities and keep activities short. ? Set consistent limits. Keep rules for your child clear, short, and simple. ? Provide your child with choices throughout the day. ? When giving your child instructions (not choices), avoid asking yes and no questions ( Do you want a bath? ). Instead, give clear instructions ( Time for a bath. ). ? Recognize that your child has a limited ability to understand consequences at this age. ? Interrupt your child's inappropriate behavior and show him or her what to do instead. You can also remove your child from the situation and have him or her do a more appropriate activity. ? Avoid shouting at or spanking your child. ? If your child cries to get what he or she wants, wait until your child briefly calms down before you give him or her the item or activity. Also, model the words that your child should use (for example, cookie please or climb up ). ? Avoid situations or activities that may cause your child to have a temper tantrum, such as shopping trips. Oral health ? [place] your child's teeth after meals and before bedtime. Use a small amount of non-fluoride toothpaste. ? Take your child to a dentist to discuss oral health. ? Give fluoride supplements or apply fluoride varnish to your child's teeth as told by your child's health care provider. ? Provide all beverages in a cup and not in a bottle. Doing this helps to prevent tooth decay. ? If your child uses a pacifier, try to stop giving it your child when he or she is awake. Sleep ? At this age, children typically sleep 12 or more hours a day. ? Your child may start ta (more content not included)... Normal [facility] Pediatrics Office/Clinic Not lyndsay 06-27-2020 Pediatrics Office/Clinic Note Chief Complaint Pt in office with dad for a 18 month [facility]. History of Present Illness Interval History: unremarkable Caregivers questions/concerns: none Development Motor Skills Climbs stairs with hand held: yes Drinks well from cup: yes Kicks a ball: yes Runs stiffly: yes Scribbles: yes Sits in a chair: yes Stacks 3-4 blocks: yes Takes off shoes: yes Throws a ball: yes Turns pages in a book: yes Uses a spoon: yes Uses pull toys: yes Walks backwards: yes Social/Language skills Follows simple commands: yes Is interactive: yes Laughs in response to others: yes Points to 1-2 body parts on request: yes Puckers lips and kisses: yes Shows functional understanding of objects: yes Uses at least 10 words: yes Vocalizes and gestures: yes Generally, the child sleeps 10 hours/night hours at night and naps 2 hours/day. Media Screen time per day: 0-1 hours Nutrition Milk (amount and type per day) : whole 16 ounces per day Eats 3 meals/day and snacks 2 times/day. He is a good eater and eats a variety of foods Adequate voiding/stooling: yes Drinks with a cup: yes Weaned off of bottle yet: yes Number of teeth erupted: Possible food allergies: no Iron/vitamins, fluoride supplements: none Social Situation Primary caregiver: mother and father Mother working/school: [id number] mother Father working/school: working Daycare: none Ignition Expert(s): have not used a sitter # of siblings: 0 Tobacco smoke exposure: none Outside family support present: yes Regular schedule maintained in the household: yes Safety Issues Car safety seat ? proper type/use: yes Proper toy selection: yes Avoid plastic bags, balloons: yes Water heater turned down: yes Never unattended in bath: yes Electrical outlet plugs: yes Avoid dangling cords: yes Maldonado on stairs: yes Window/door safety devices: yes Remove guns from home or lock up: yes Poisons/medicines locked up: yes Poison control number readily available: yes Review of Systems ROS - Provider CONSTITUTIONAL: Negative for growth problems, fatigue, unexplained fevers, weight change, and loss of appetite. EYES: Negative for apparent vision problems, eye drainage, and lazy eye. E/N/T: Negative for apparent hearing deficits, chronic nasal congestion, and oral lesions. CARDIOVASCULAR: Negative for cyanotic spells and edema. RESPIRATORY: Negative for chronic cough, dyspnea, exposure to tuberculosis, and wheezing. GASTROINTESTINAL: Negative for constipation, diarrhea, feeding/nutritional problems, and vomiting. GENITOURINARY: Negative for dysuria, hematuria, difficulty voiding, or rashes/lesions of the external genitalia. MUSCULOSKELETAL: Negative for joint swelling and weakness. INTEGUMENTARY: Negative for atopic dermatitis, atypical moles, pruritis, rashes, and skin lesions. NEUROLOGICAL: Negative for abnormal tone and seizures. HEMATOLOGIC/LYMPHATI C: Negative for bleeding, excessive bruising, and lymphadenopathy. ENDOCRINE: Negative for heat/cold intolerance, polyuria, and polydipsia. ALLERGIC/IMMUNOLOGIC : Negative for allergies, frequent illnesses, HIV exposure, and urticaria. PSYCHIATRIC: Negative for irritability Physical Exam Vitals & Measurements T: 36.6 ?C (Temporal Artery) HR: 104(Peripheral) RR: 24 HT: 83.2 cm HT: 83.2 cm WT: 13.80 kg WT: 13.8 kg BMI: 19.94 GENERAL: The patient is well developed, well nourished, in no apparent distress. HEAD: The examination of the patient?s head revealed Normocephalic. The anterior fontanels are closed . EYES: lids and conjunctiva are normal; pupils and irises are normal; funduscopic exam reveals red reflex present bilaterally. E/N/T: normal external auditory canals and tympanic membranes; Nose: normal nasal mucosa, septum, turbinates, and sinuses; Lips, Teeth and Gums: molars and canines are erupting; Oropharynx: normal mucosa, palate, and posterior pharynx; NECK: Neck is supple with full range of motion; RESPIRATORY: normal respiratory rate and pattern with no distress; normal breath sounds with no rales, rhonchi, wheezes or rubs; CARDIOVASCULAR: normal rate and rhythm without murmurs; normal S1 and S2 heart sounds with no S3, S4, rubs, or clicks. 2+ femoral pulses BREASTS: symmetric; no overlying skin changes; appropriate Carlos stage; GASTROINTESTINAL: normal bowel sounds; no masses or tenderness; no organomegaly no abdominal or inguinal hernia; GENITOURINARY: mild penile adhesion noted are around the glans; collection of smegma noted; area is slightly erythematous; LYMPHATIC: no enlargement of cervical nodes; no axillary adenopathy; no inguinal adenopathy; MUSCULOSKELETAL: digits/nails: no clubbing, cyanosis, or evidence of ischemia or infection; tone and strength: normal overall tone; range of motion: no laxity or subluxation of any joints; no masses, effusions, misalignment, crepitus, or tenderness in major joints; SKIN: No ulcerations, lesions or rashes are (more content not included)... Normal [facility] Lab Reportson 05-21-2020 Lab Reports [id number]#1 .[id number]:127 Normal [facility] Formson 05-12-2020 Forms [id number] #1.00CD:127 Normal [facility] Scre[place] 05-12-2020 Screens [id number] #1.00CD:127 Normal [facility] Ambulatory Clinical Summaryo n 05-11-2020 Ambulatory Clinical Summary {[id number] [facility] Patient Educationon 05-11-19 21 Patient Education Pediatrics Well Book Trimmer, 15 Months Old Well-child exams are recommended visits with a health care provider to track your child's growth and development at certain ages. This sheet tells you what to expect during this visit. Recommended immunizations ? Hepatitis B vaccine. The third dose of a 3-dose series should be given at age 6?18 months. The third dose should be given at least 16 weeks after the first dose and at least 8 weeks after the second dose. A fourth dose is recommended when a combination vaccine is received after the dose. ? Diphtheria and tetanus toxoids and acellular pertussis (DTaP) vaccine. The fourth dose of a 5-dose series should be given at age 15?18 months. The fourth dose may be given 6 months or more after the third dose. ? Haemophilus influenzae type b (Hib) booster. A booster dose should be given when your child is 12?15 months old. This may be the third dose or fourth dose of the vaccine series, depending on the type of vaccine. ? Pneumococcal conjugate (PCV13) vaccine. The fourth dose of a 4-dose series should be given at age 12?15 months. The fourth dose should be given 8 weeks after the third dose. ? The fourth dose is needed for children age 12?59 months who received 3 doses before their first birthday. This dose is also needed for high-risk children who received 3 doses at any age. ? If your child is on a delayed vaccine schedule in which the first dose was given at age 7 months or later, your child may receive a final dose at this time. ? Inactivated poliovirus vaccine. The third dose of a 4-dose series should be given at age 6?18 months. The third dose should be given at least 4 weeks after the second dose. ? Influenza vaccine (flu shot). Starting at age 6 months, your child should get the flu shot every year. Children between the ages of 6 months and 8 years who get the flu shot for the first time should get a second dose at least 4 weeks after the first dose. After that, only a single yearly (annual) dose is recommended. ? Measles, mumps, and rubella (MMR) vaccine. The first dose of a 2-dose series should be given at age 12?15 months. ? Varicella vaccine. The first dose of a 2-dose series should be given at age 12?15 months. ? Hepatitis A vaccine. A 2-dose series should be given at age 12?23 months. The second dose should be given 6?18 months after the first dose. If a child has received only one dose of the vaccine by age 24 months, he or she should receive a second dose 6?18 months after the first dose. ? Meningococcal conjugate vaccine. Children who have certain high-risk conditions, are present during an outbreak, or are traveling to a country with a high rate of meningitis should get this vaccine. Your child may receive vaccines as individual doses or as more than one vaccine together in one shot (combination vaccines). Talk with your child's health care provider about the risks and benefits of combination vaccines. Testing Vision ? Your child's eyes will be assessed for normal structure (anatomy) and function (physiology). Your child may have more vision tests done depending on his or her risk factors. Other tests ? Your child's health care provider may do more tests depending on your child's risk factors. ? Screening for signs of autism spectrum disorder (ASD) at this age is also recommended. Signs that health care providers may look for include: ? Limited eye contact with caregivers. ? No response from your child when his or her name is called. ? Repetitive patterns of behavior. General instructions Parenting tips ? Praise your child's good behavior by giving your child your attention. ? Spend some one-on-one time with your child daily. Vary activities and keep activities short. ? Set consistent limits. Keep rules for your child clear, short, and simple. ? Recognize that your child has a limited ability to understand consequences at this age. ? Interrupt your child's inappropriate behavior and show him or her what to do instead. You can also remove your child from the situation and have him or her do a more appropriate activity. ? Avoid shouting at or spanking your child. ? If your child cries to get what he or she wants, wait until your child briefly calms down before giving him or her the item or activity. Also, model the words that your child should use (for example, cookie please or climb up ). Oral health ? [place] your child's teeth after meals and before bedtime. Use a small amount of non-fluoride toothpaste. ? Take your child to a dentist to discuss oral health. ? Give fluoride supplements or apply fluoride varnish to your child's teeth as told by your child's health care provider. ? Provide all beverages in a cup and not in a bottle. Using a cup helps to prevent tooth decay. ? If your child uses a pacifier, try to stop giving the pacifier to your child when he or she is awake. Sleep ? At this age, children typically sleep 12 or (more content not included)... Normal [facility] Pediatrics Office/Clinic Not lyndsay 05-11-2020 Pediatrics Office/Clinic Note Chief Complaint Pt in office with mom for a 15 month [facility]. History of Present Illness Interval History: unremarkable Caregivers questions/concerns: none Development Motor Skills Crawls up stairs: yes he is able to but mom does not let him Drinks well from cup: yes Neat pincer grasp: yes Rolls/tosses ball: yes Scribbles: yes Self feeds with fingers: yes Stacks 2 blocks: yes Steps backwards: yes Leonard to picker feeder objects: yes Uses a spoon: yes Walks well: yes Social/Language skills Brings objects to show: yes Hugs: yes Imitates activities: yes Indicates wants by gesture/pointing: yes Listens to a story: yes Points to 1-2 body parts on request: no Says at least 3 - 6 words: yes Shows functional understanding of objects: yes Understands simple commands: yes Sleep Generally, the child sleeps 10-12 hours/night hours at night and naps 2 hours/day. Media Screen time per day: 1 hours Enrolled in therapy: no Nutrition Milk (amount and type per day) : whole 16 oz Amount of solids/table foods: 3 meals, 2 snacks He eats a variety of table foods Adequate voiding/stooling: yes Drinks with a cup yes : Number of teeth erupted: 8 4 more are coming in Possible food allergies: no Iron/vitamins, fluoride supplements: none Social Situation Primary caregiver: mother Mother?s marital status: single; child's dad involved Daycare: none Ignition Expert(s): have not used a sitter # of siblings:0 Tobacco smoke exposure: none Alcohol use in the household: no Drug use in the household: no Outside family support present: yes Regular schedule maintained in the household: yes Safety Issues Car safety seat ? proper type/use: yes Proper toy selection: yes Avoid plastic bags, balloons: yes Water heater turned down: yes Never unattended in bath: yes Electrical outlet plugs: yes Avoid dangling cords: yes Maldonado on stairs: yes Window/door safety devices: yes Remove guns from home or lock up: yes Poisons/medicines locked up: yes Poison control number readily available: yes Review of Systems ROS - Provider CONSTITUTIONAL: Negative for growth problems, fatigue, unexplained fevers, and weight loss. EYES: Negative for apparent vision problems, eye drainage, and lazy eye. E/N/T: Negative for apparent hearing deficits, chronic nasal congestion, dental problems, and speech problems. CARDIOVASCULAR: Negative for chest pain, cyanotic spells, edema, and poor exercise tolerance. RESPIRATORY: Negative for chronic cough, dyspnea, exposure to tuberculosis, and wheezing. GASTROINTESTINAL: Negative for abdominal pain, constipation, diarrhea, feeding/nutritional problems, and vomiting. GENITOURINARY: Negative for dysuria, hematuria, difficulty voiding, or rashes/lesions of the external genitalia. MUSCULOSKELETAL: Negative for limb or joint pain, joint swelling, and gait abnormalities. INTEGUMENTARY: Negative for atopic dermatitis, atypical moles, pruritis, rashes, and skin lesions. NEUROLOGICAL: Negative for abnormal tone, developmental delays, syncope, headaches, and seizures. HEMATOLOGIC/LYMPHATI C: Negative for bleeding, excessive bruising, and lymphadenopathy. ENDOCRINE: Negative for abnormal growth or pubertal development, polyuria, and polydipsia. ALLERGIC/IMMUNOLOGIC : Negative for allergies, frequent illnesses, HIV exposure, and urticaria. PSYCHIATRIC: Negative for behavioral or emotional problems. Physical Exam Vitals & Measurements T: 36.5 ?C (Temporal Artery) HR: 112(Peripheral) RR: 28 HT: 80.5 cm HT: 80.5 cm WT: 13.34 kg WT: 13.3 kg BMI: 20.59 GENERAL: The patient is well developed, well nourished, in no apparent distress. HEAD: The examination of the patient?s head revealed Normocephalic. The anterior fontanels are open . EYES: lids and conjunctiva are normal; pupils and irises are normal; funduscopic exam reveals red reflex present bilaterally. E/N/T: normal external auditory canals and tympanic membranes; Nose: normal nasal mucosa, septum, turbinates, and sinuses; Lips, Teeth and Gums: upper and lower lip mucosa is mildly erythematous. Oropharynx: normal mucosa, palate, and posterior pharynx; NECK: Neck is supple with full range of motion; RESPIRATORY: normal respiratory rate and pattern with no distress; normal breath sounds with no rales, rhonchi, wheezes or rubs; CARDIOVASCULAR: normal rate and rhythm without murmurs; normal S1 and S2 heart sounds with no S3, S4, rubs, or clicks. 2+ femoral pulses bilaterally BREASTS: symmetric; no overlying skin changes; appropriate Carlos stage; GASTROINTESTINAL: normal bowel sounds; no masses or tenderness; no organomegaly no abdominal or inguinal hernia; GENITOURINARY: external genitalia without lesions or other abnormalities; appropriate Carlos stage LYMPHATIC: no enlargement of cervical nodes; no axillary adenopathy; no inguinal adenopathy; MUSCULOSKELETAL: digits/nails: no clubbing, cyanosis, or evidence of i (more content not included)... Normal [facility] Vital Signs Date Time Vital Sign Value Performing Clinician Facility 12-19-2022 18:57-0400 Heart rate 116 /min Liborio Hairston MD MPH Work Phone: [facility] 12-19-2022 18:57-0400 Respiratory rate 24 /min Liborio Hairston MD MPH Work Phone: [facility] 12-19-2022 18:57-0400 SaO2% (BldA) [Mass fraction] 98 % Liborio Hairston MD MPH Work Phone: [facility] 12-19-2022 15:56-0400 Body temperature 97.81 [degF] Liborio Hairston MD MPH Work Phone: [facility] 12-19-2022 15:56-0400 Body weight 22.68 kg Liborio Hairston MD MPH Work Phone: [facility] Encounters Encounter Date Encounter Type Care Provider Facility Start: 12-25-2022 End: 12-25-2022 [facility] Start: 12-19-2022 End: 12-19-2022 Emergency department patient visit LIBORIO HAIRSTON [facility] Start: 12-19-2022 End: 12-19-2022 Emergency department patient visit Liborio Hairston MD MPH Work Phone: [facility] Comment on above: Dental abscess (Prim alessandra Dx); S/P tooth extraction Procedures Date Procedure Procedure Detail Performing Clinician Start: 12-19-2022 extraction, erupted tooth or exposed root (elevation and/or forceps removal) LIBORIO HAIRSTON Plan of Treatment Date Care Activity Detail Author Start: 12-24-2068 Zoster Vaccines (1 of 2) Zoste r Vaccines (1 of 2) [facility] Start: 12-24-2029 HPV Vaccines (1 - Ma le 2-dose series) HPV Vaccines (1 - Male 2-dose series) [facility] Start: 12-24-2029 Meningococcal Vaccin e (1 - 2-dose series) Meningococcal Vaccine (1 - 2-dose series) [facility] Start: 11-16-2022 Influenza vaccination Influenz a Vaccine (1 of 2) [facility] Start: 12-24-2021 Vision Screening (#1) Vision Screeni ng (#1) [facility] Start: 12-24-2021 Well Child Visit (WC V) - Annual Well Child Visit (WCV) - Annual [facility] Start: 06-24-2020 Autism Spectrum Diso rder Screening Autism Spectrum Disorder Screening [facility] Start: 12-25-2019 Anemia Screening Anemia Screening [facility] Start: 12-25-2019 Hepatitis A Vaccines (1 of 2 - 2-dose series) Hepatitis A Vaccines (1 of 2 - 2-dose series) [facility] Start: 12-25-2019 Lead screening Lead Screening (#1) [facility] Start: 12-25-2019 MMR Vaccines (1 of 2 - Standard series) MMR Vaccines (1 of 2 - Standard series) [facility] Start: 12-25-2019 Varicella vaccination Varicell a Vaccines (1 of 2 - 2-dose childhood series) [facility] Start: 09-24-2019 Developmental Screen ing (#1) Developmental Screening (#1) [facility] Start: 08-25-2019 Application of denta l fluoride varnish Fluoride Varnish [facility] Start: 06-25-2019 COVID-19 Vaccine (#1) COVID-19 Vacci ne (#1) [facility] Start: 02-23-2019 DTaP/Tdap/Td Vaccine s (1 - DTaP) DTaP/Tdap/Td Vaccines (1 - DTaP) [facility] Start: 02-23-2019 HIB Vaccines (1 of 2 - Standard series) HIB Vaccines (1 of 2 - Standard series) [facility] Start: 02-23-2019 IPV Vaccines (1 of 4 - 4-dose series) IPV Vaccines (1 of 4 - 4-dose series) [facility] Start: 02-23-2019 Pneumococcal Vaccine : Pediatrics (0 to 5 Years) and At-Risk Patients (6 to 64 Years) (1 - PCV13 or PCV15) Pneumococcal Vaccine: Pediatrics (0 to 5 Years) and At-Risk Patients (6 to 64 Years) (1 - PCV13 or PCV15) [facility] Start: 12-25-2018 Hearing Screening (#1) Hearing Scree kian (#1) [facility] Start: 12-24-2018 Hepatitis B Vaccines (1 of 3 - 3-dose series) Hepatitis B Vaccines (1 of 3 - 3-dose series) [facility] End: 12-19-2022 Continuous Pulse oximetry during procedure with minimal sedation Continuous Pulse oximetry during procedure with minimal sedation Respiratory Care Routine Continuous until discontinued starting 12/19/2022 [facility] Service Area Work Phone: Comment on above: Continuous until dis continued starting 12/19/2022 Payers Date Payer Category Payer Unknown SULY ZUNIGA ALAN [id number] 2018-Present [address] [place] [address] [id number] 2018 Unknown [id number] 1970 Unknown [id number] 1969 Unknown [id number] Social History Date Type Detail Facility Tobacco smoking status WYIS Tobacco smoking consumption unknown [facility] Work Phone: Start: 12-24-2018 Sex Assigned At Not on file [facility] Work Phone: Gender identity Not on file [facility] Work Phone: Start: 12-09-2022 End: 12-19-2022 Exposure to SARS-CoV-2 (event) Not sure [facility] Work Phone: Hospital Discharge instructions 12-19-2022 Discharge InstructionsAttachments Note Date & Type Note Facility 12-19-2022 Hospital Discharg e instructions Tierney Martinez MD - 12/19/2022 6:47 PM EDT Please follow up with pediatric dental The following attachments cannot be sent through Care Everywhere._Dental Abscess after Treatment, [facility] ([place])_Antibiotics, How They Work, [facility] ([place])documented in this encounter [facility] Work Phone: Emergency department Note 12-19-2022 Adilene Andres RN - 12/19/2022 3:39 PM EDT Note Date & Type Note Facility 12-19-2022 Emergency department Note Uncooperative unable to get bp face swollen documented in this encounter [facility] Work Phone: Emergency department Triage note 12-19-2022 Adilene Andres RN - 12/19/2022 3:39 PM EDT Note Date & Type Note Facility 12-19-2022 Emergency department Triage note Uncooperative unable to get bp face swollen [facility] Work Phone: Evaluation note Note Date & Type Note Facility Evaluation note Diagnosis Dental abscess- Primary Periapical abscess without sinus S/P tooth extraction Partial edentulism, unspecified documented in this encounter [facility] Work Phone: Summary Purpose Family History No Family History Records FoundNo Family History Records Found Advance Directives No Advanced Directives Records FoundNo Advanced Directives Records Found Additional Source Comments (unrecognized sect ion and content) No Status Records FoundNo Status Records Found INFORMATION SOURCE (unrecogn ized section and content) DATE CREATED AUTHOR [facility] DATE CREATED AUTHOR AUTHOR'S ORGANIZ ATION 05/14/2023 [facility] Reason for Visit (unrecogniz ed section and content) Reason Comments Dental Pain Scheduled Active and Recently Administ ered Medications (unrecognized section and content) Medication Order 12/17/2022 12/18/2022 12/19/2022 benzocaine (Lollicaine) 20 % mucosal gel Mouth/Throat, Once, On Sat12/19/22 at 1630, For 1 dose, Apply topical to oral mucosa. For dental use only 1814 (Not Given - Pr ovider: Kareen Carrasquillo RN - Reason: Other - Comment: dental did not use) diphenhydrAMINE (BENADryl) liquid 22.5 mg (COMPLETED) 22.5 mg (rounded from 22.7 mg = 1 mg/kg 22.7 kg Dosing weight), oral, Once, On Sat12/19/22 at 1830, For 1 dose 1831 (Given - Provid er: Kareen Carrasquillo RN) fentaNYL PF (Sublimaze) injection 34 mcg (COMPLETED) 34 mcg (rounded from 34.05 mcg = 1.5 mcg/kg 22.7 kg Dosing weight), nasal, Once, On Sat12/19/22 at 1630, For 1 dose, If ordered PRN for pain, nurse is permitted to administer this medication for higher pain scores based on patient preference? Yes 1733 (Given - Provid er: Kareen Carrasquillo RN) lidocaine-epinephrine (XYLOCAINE W/EPI) 2 %-1:100,000 injection 1.7 mL (COMPLETED) 1.7 mL (0.0749 mL/kg), submucosal injection, Once, On Sat12/19/22 at 1630, For 1 dose, For dental use only. 1814 (Given - Provid er: Kareen Carrasquillo RN - Comment: given by dental, Eliza Elliott) midazolam PF (Versed) injection 4.55 mg (COMPLETED) 4.55 mg (rounded from 4.54 mg = 0.2 mg/kg 22.7 kg Dosing weight), nasal, Once, On Sat12/19/22 at 1630, For 1 dose 1753 (Given - Provid er: Kareen Carrasquillo RN) FOR RECORDS PERTAINING TO PATIENTS WHO [...] BE BASED ON THE PRIMARY CLINICAL RECORDS. [facility]. provides no warranty or guarantee of the accuracy or completeness of information in this document.
[2023-05-24 06:59] LABS: Basophils Absolute Auto 0.1 10^3/uL (0.0-0.1); Basophils Percent Auto 0.7 % (0.2-2.0); Eosinophils Absolute Auto 0.4 10^3/uL (0.0-0.7); Hematocrit 40.1 % (36.0-48.0); Hemoglobin 12.9 g/dL (12.0-16.0); Immature Granulocytes Abs Auto 0.02 10^3/uL (0.00-0.03); Immature Granulocytes Pct Auto 0.3 % (0.0-0.5); Lymphocytes Absolute Auto 2.1 10^3/uL (1.2-3.8); Lymphocytes Percent Auto 28.8 % (20.5-60.0); Mean Corpuscular HGB Conc 32.2 g/dL (29.9-35.2); Mean Corpuscular Hemoglobin 28.2 pg (26.7-34.0); Mean Corpuscular Volume 87.6 fL (81.0-99.0); Mean Platelet Volume 9.8 fL (9.5-13.5); Monocytes Absolute Auto 0.5 10^3/uL (0.3-0.8); Monocytes Percent Auto 6.8 % (1.7-12.0); Neutrophils Absolute Auto 4.3 10^3/uL (1.4-6.5); Neutrophils Percent Auto 57.4 % (43.0-75.0); Platelet Count 291 10^3/uL (150-450); Red Blood Count 4.58 10^6/uL (4.20-5.40); Red Cell Distribution Width 12.6 % (11.0-15.0); White Blood Count 7.4 10^3/uL (4.0-11.0)
[2023-05-24] MEDS: LACTATED RINGER'S SOLUTION 1,000 ML 50 ML IV (07:29)
--- NOTE | 2023-05-24 09:39 | PM.ONB ---
Brief Operative Note Date of procedure: 05/24/23 Pre-op diagnosis: pelvic pain Post-op diagnosis: same as pre-op Procedure: NAME OF PROCEDURE: bilateral laparoscopic partial salpingectomy, with lysis of adhesions to the vaginal cuff PROCEDURE: The patient was taken back to the Operating Room where she was given general anesthesia without difficulty. She was then prepped and draped in the normal sterile fashion after being placed in a dorsal lithotomy position. A wet sponge stick was placed into the patient's vagina. Attention was then turned to the patient's abdomen, where a scalpel was used to make a small infraumbilical incision. The S retractors were then used to dissect the underlying layers until the fascia could be seen. The fascia was then grasped with Robbie clamps and tented up. A knife was then used to make a small incision to the fascia. The muscle was identified, at that time two sutures of #0 Vicryl on a GI needle was then used and placed through the fascia. the peritoneum was then identified and entered bluntly. The 10-4 Nickolas was then placed into the patient's abdomen. This was confirmed with direct visualization of the bowel, using the laparoscope. The patient's abdomen was then insufflated using approximately 4 liters of CO2 gas. Survey of the patient's abdomen demonstrated ovaries were normal in appearance as well as both tubes and uterus. A second and third rt and lt lateral ports which were 5 and 8 mm in size, was then placed after the skin incision was made under direct visualization . The patient's tube on the patient's right side was identified and tented up using a grasper, the ligasure apparatus was then used to come across the mesosalpingx the partial tube was then amputated and removed in its entirety. This was done on the contralateral side. The tubes were the removed from the patients abdomen. please note absent uterus, lysis of adhesion from the vaginal cuff using monopolar scissors. Excellent hemostasis was noted. The lateral ports were then moved under direct visualization with excellent hemostasis. All instruments were removed from the patient's abdomen. The fascia was closed using the #0 Vicryl on GI needle. The skin was closed using 4-0 Vicryl subcuticularly. All instruments were removed from the patient's vagina as well. The patient was taken out of the dorsal lithotomy position and placed in the supine position and taken to recovery in stable condition. Sponge, lap and needle counts were correct x2. Anesthesia: LIBAN Surgeon: Brian Salamanca Physician'S Assistant: Mae Chilel Estimated blood loss (mL): 5 Pathology: other (tubes) Condition: stable Disposition: PACU Urinary Catheter Management Urinary Catheter Management 2-way Urethral: Cath placed during this visit: no
--- NOTE | 2023-05-24 10:46 | PC.NURSE ---
Up to bathroom and voids clear yellow without difficulty
[2023-05-24] MEDS: HYDROCODONE/ACET 5-325 MG TABLET 1 TAB PO (10:50)
== END 2023-05-24 11:15 | disposition home or self-care (01) ==
PROVIDERS: Visit Provider Obstetrics & Gynecology
PROC: (CPT 840; principal; 2023-05-24 08:20)
DX: N83.201 Unspecified ovarian cyst, right side (principal); N83.8 Other noninflammatory disorders of ovary, fallopian tube and broad ligament; R10.2 Pelvic and perineal pain; N89.5 Stricture and atresia of vagina; Z90.711 Acquired absence of uterus with remaining cervical stump
CPT/HCPCS: 58661; 36415; 85025; 88302; 99999; J1094; J2704

== ENCOUNTER 2024-05-19 15:26 | Outpatient (REF) | payer BC, SELFPAY ==
[2024-05-22 15:09] LABS: Age Gdln ACOG Testing Note (.); HPV Aptima Negative (Negative); IGP, Aptima HPV, rfx 16/18,45 Note (.)
== END 2024-05-19 15:27 | disposition home or self-care (01) ==
LOC: LAB 15:26
PROVIDERS: Visit Provider Obstetrics & Gynecology
DX: Z01.419 Encounter for gynecological examination (general) (routine) without abnormal findings (principal)
CPT/HCPCS: 87624; 88175